=== PATIENT | female | born 1970 | race African-American/Black ===

== ENCOUNTER 2016-07-28 23:28 | Inpatient (IN) ==
[2016-07-29] MEDS ORDERED: niCARdipine 25 MG/10 ML VIAL IV ONE
--- NOTE | 2016-07-29 00:06 | Emergency Department Note ---
Daya Roberson Gwan, am scribing for, and in the presence of, Mckay Watson MD 00:05. Walter Roberson Robert M, MD, personally performed the services described in this documentation, ascribed by Kaitlyn Stapleton in my presence, and it is both accurate and complete . Arrival - Arrival Chief Complaint: Shortness of Breath Stated Complaint: swollen legs and feet chest tight hard to breath ED Nursing Triage Note: C/O SHORT OF BREATH WITH CHEST TIGHTNESS. PT STATES THAT SHE HAS SWELLING TO BILATERAL FEET. Mode of Arrival: Ambulatory Limitations: No Limitations Source: Patient, Old Records Reviewed, RN Notes Reviewed - History of Present Illness HPI Narrative: Patient is a 45 y/o black female who presents to the ED with a c/o SOB, cough, chest pain and bilateral edema to lower extremities with an onset yesterday morning. During exam pt spoke in limited sentences. At time of triage, pt's BP was 243/145. She describes her pain as a tightness and stated that her SOB worsens with exertion and when she lays flat. Patient is followed by physicians at [facility]. She stated that she has been compliant with all prescribed medication but denies any other pain. Pt has PMHx of IDDM and dyslipidemia. Onset (ago): day(s) Consistency: constant Severity: moderate Date of Last Menstrual Period: HYST Allergies/Adverse Reactions: Allergies Allergy/AdvReac Type Severity Reaction Status Date / Time No Known Allergies Allergy Verified 11/19/15 16:02 Home Medications: Home Medications Medication Instructions Recorded Confirmed Type Aspirin [Lo-Dose Aspirin EC] 81 mg PO DAILY 07/29/16 07/29/16 History Furosemide Tab [Lasix Tab] 80 mg PO BID DIURETIC 07/29/16 07/29/16 History Insulin Detemir [Levemir] 20 unit SUBCUT BEDTIME 07/29/16 07/29/16 History Metoprolol Tartrate 50 mg PO BID 07/29/16 07/29/16 History NIFEdipine [Nifedipine ER] 90 mg PO DAILY 07/29/16 07/29/16 History hydrALAZINE TAB [Apresoline Tab] 50 mg PO TID 07/29/16 07/29/16 History Review of System - Review of System 12 point system: reviewed and no additional remarkable complaints except as stated - Review of System Constitutional: Absent: chills, fever Eyes: Absent: discharge, pain Head/Ears/Nose/Throat: Absent: earache Respiratory: Present: as per HPI, cough, other (sob) Cardiovascular: Present: as per HPI, chest pain Gastrointestinal: Absent: abdominal pain, nausea, vomiting, diarrhea Genitourinary female: Absent: dysuria Musculoskeletal: Absent: arm pain, back pain, leg pain, neck pain Skin: Absent: rash, lesions Neurological: Absent: headache, weakness Medical,Surgical,& Family Hx - Medical History Cardio: History of: Hypertension Endocrine: History of: Diabetes Mellitus (IDDM), Dyslipidemia - Family History Family History: Reports;: Family Diabetes, Family Hypertension - Social History Smoking Status: Never smoker Frequency of Alcohol Use: None Type of Drug Use: None Exam Vital Signs: Vital Signs Temperature 97.5 F L 07/28/16 23:40 Pulse Rate 103 H 07/29/16 00:45 Respiratory Rate 18 07/29/16 00:45 Blood Pressure 195/110 07/29/16 00:45 O2 Sat by Pulse Oximetry 95 07/29/16 00:45 - General General appearance: alert, in no apparent distress - Head Head exam: Present: atraumatic, normocephalic - Eye Eye exam: Present: normal appearance, PERRL, EOMI - ENT ENT exam: Present: normal oropharynx, mucous membranes moist, TM's normal bilaterally, normal external ear exam - Neck Neck exam: Present: full ROM, trachea midline. Absent: tenderness - Chest Chest inspection: Present: symmetric chest wall rise. Absent: tenderness - Respiratory Respiratory exam: Present: rhonchi (bilaterally), other (tachypneic) - Cardiovascular Cardiovascular exam: Present: tachycardia - Extremities Exam Extremities exam: Present: other (edema note to bilateral lower extremities) - Neurological Exam Neurological exam: Present: alert, oriented X3, CN II-XII intact. Absent: motor sensory deficit - Psychiatric Psychiatric exam: Present: normal affect, normal mood - Skin Skin exam: Present: warm, dry, intact, normal color Course - Consultations Consultation #1: Dr. Pollack will admit the patient to the hospitalist service. Time: 01:02 Results - Labs CBC & BMP: 07/28/16 00:00 07/28/16 00:00 Lab Results: I have reviewed the patients labs Labs: Lab Results WBC 14.3 T/CUMM (4-12) H 07/28/16 00:00 RBC 3.54 MC/CUMM (3.8-5.5) L 07/28/16 00:00 Hgb 9.8 GM/DL (12.0-16.0) L 07/28/16 00:00 Hct 30.1 VOL% (35.7-47.0) L 07/28/16 00:00 MCV 85.0 FL (87-102) L 07/28/16 00:00 MCH 28 PG (27-34) 07/28/16 00:00 MCHC 32.6 GM/DL (32-36) 07/28/16 00:00 RDW 14.9 % (9.3-17.3) 07/28/16 00:00 Plt Count 393 T/CUMM (130-400) 07/28/16 00:00 MPV 11.5 FL (9.6-12.0) 07/28/16 00:00 Neut % (Auto) 68.9 % (38.7-73.9) 07/28/16 00:00 Lymph % (Auto) 19.3 % (21.3-54.2) L 07/28/16 00:00 Randall % (Auto) 7.9 % (1.7-12.7) 07/28/16 00:00 Eos % (Auto) 2.9 % (0.00-10.9) 07/28/16 00:00 Baso % (Auto) 0.6 % (0.0-0.8) 07/28/16 00:00 Neut # (Auto) 9.9 10*3/uL (1.4-7.4) H 07/28/16 00:00 Lymph # (Auto) 2.8 10*3/uL (1.4-4.0) 07/28/16 00:00 Randall # (Auto) 1.1 10*3/uL (0.11-0.8) H 07/28/16 00:00 Eos # (Auto) 0.4 10*3/uL (0.0-0.87) 07/28/16 00:00 Baso # (Auto) 0.1 10*3/uL (0.0-0.2) 07/28/16 00:00 Immature Gran % 0.4 % 07/28/16 00:00 Nucleated RBC % 0.0 /100WBC 07/28/16 00:00 Immature Gran # 0.05 # 07/28/16 00:00 Nucleated RBCs # 0.00 10*3/uL 07/28/16 00:00 INR 1.0 07/28/16 00:00 PT Patient/Control Mix 10.2 SECS 07/28/16 00:00 Sodium 141 MMOL/L (136-145) 07/28/16 00:00 Potassium 3.2 MMOL/L (3.5-5.1) L 07/28/16 00:00 Chloride 108 MMOL/L (98-107) H 07/28/16 00:00 Carbon Dioxide 22 MMOL/L (21-32) 07/28/16 00:00 Anion Gap 14.2 MMOL/L (5.0-15.0) 07/28/16 00:00 BUN 33 MG/DL (7-18) H 07/28/16 00:00 Creatinine 4.10 MG/DL (0.55-1.02) H 07/28/16 00:00 GFR Calculation 17 ML/MIN 07/28/16 00:00 BUN/Creatinine Ratio 8.00 RATIO (6.00-20.00) 07/28/16 00:00 Glucose 239 MG/DL (74-106) H 07/28/16 00:00 Calculated Osmolality 295.3 MOS/KG (273-304) 07/28/16 00:00 Calcium 8.1 MG/DL (8.5-10.1) L 07/28/16 00:00 Magnesium 2.4 MG/DL (1.8-2.4) 07/28/16 00:00 - Diagnostic Findings Procedure: Chest x-ray: image reviewed by me (Pulmonary edema right basilar atelectasis/pleural effusion) Critical Care Time Critical Care Time: Yes Total Critical Care Time: 37 Disposition Clinical Impression: Hypertensive crisis, Pulmonary edema Case discussed with: patient Disposition: Still a Patient Condition: Stable Time of Disposition: 01:03
[2016-07-29] MEDS: niCARdipine INJ 25 MG in SODIUM CHLORIDE 0.9% 240 ML IV SCH ×3 (00:11→10:55)
[2016-07-29 00:28] LABS: Calcium 8.1 MG/DL (8.5-10.1); Magnesium 2.4 MG/DL (1.8-2.4); Osmolality,Calculated 295.3 MOS/KG (273-304); Potassium 3.2 MMOL/L (3.5-5.1)
[2016-07-29 00:29] LABS: Basophils # 0.1 10*3/uL (0.0-0.2); Basophils % 0.6 % (0.0-0.8); Eosinophils # 0.4 10*3/uL (0.0-0.87); Eosinophils % 2.9 % (0.00-10.9); Hematocrit 30.1 VOL% (35.7-47.0); Hemoglobin 9.8 GM/DL (12.0-16.0); Immature Granulocytes % 0.4 %; Immature Granulocytes Absolute 0.05 #; Lymphocytes # 2.8 10*3/uL (1.4-4.0); Lymphocytes % 19.3 % (21.3-54.2); Mean Corpuscular HGB Conc 32.6 GM/DL (32-36); Mean Corpuscular Hemoglobin 28 PG (27-34); Mean Platelet Volume 11.5 FL (9.6-12.0); Monocytes # 1.1 10*3/uL (0.11-0.8); Monocytes % 7.9 % (1.7-12.7); Neutrophils # 9.9 10*3/uL (1.4-7.4); Neutrophils % 68.9 % (38.7-73.9); Platelet Count 393 T/CUMM (130-400); Red Blood Count 3.54 MC/CUMM (3.8-5.5); Red Cell Distribution Width 14.9 % (9.3-17.3); White Blood Count 14.3 T/CUMM (4-12)
[2016-07-29 00:44] LABS: PT Patient Result 10.2 SECS
[2016-07-29 01:08] LABS: Troponin I Only 0.076 NG/ML (0.00-0.045)
[2016-07-29 01:11] LABS: Apearance,Urine Slightly Hazy (Clear); Bilirubin,Urine Negative (Negative); Blood, Urine Negative (Negative); Glucose,Urine (UA) >=500 mg/dL (Negative); Ketones,Urine Negative (Negative); Mucus,Urine Occasional /LPF (Occasional); Nitrite,Urine Negative (Negative); Protein,Urine >=500 MG/DL; RBC,Urine 9 /HPF (0-4); Squamous Epithelial Cell,Urine Occasional /HPF (0-10); Urine Color Straw (Yellow); Urine Specific Gravity 1.009 (1.001-1.035); Urine Urobilinogen < 2.0 EU/DL (0.2-1.0); WBC,Urine 3 /HPF (0-6)
[2016-07-29] MEDS ORDERED: DEXTROSE 50% 25 GM/50 ML VIAL IV PRN ×2 (02:02)
[2016-07-29] MEDS ORDERED: POTASSIUM CHLORIDE 20 MEQ TABLET PO ONE (02:02)
[2016-07-29] MEDS ORDERED: ACETAMINOPHEN 325 MG TABLET PO PRN (02:02)
[2016-07-29] MEDS ORDERED: MORPHINE 2 MG/1 ML SYRINGE IV PRN (02:02)
[2016-07-29] MEDS ORDERED: GLUCAGON 1 MG VIAL IM PRN ×2 (02:02)
--- NOTE | 2016-07-29 02:36 | Hospitalist History & Physical ---
Assessment and Plan (1) Hypertensive emergency Status: Acute Assessment and plan: Has relative hypertension despite compliance with her many oral medications: Hydralazine, Procardia, Lopressor, Lasix Headache, GEOVANNI, pulmonary edema Admit to ICU on Cardene infusion, titrate oral medications to wean off the Cardene Likely secondary to kidney disease. Unsure why it is exacerbated at this time. I see no signs of scleroderma or TTP. Check thyroid, urine drug screen. Quantify proteinuria. Renal ultrasound done last fall suggest that she may have bilateral renal artery stenosis which may be assessed when she is more stable and at her baseline kidney function. Current Visit: Yes (2) Acute on chronic diastolic (congestive) heart failure Status: Acute Assessment and plan: Echo done last fall with diastolic dysfunction, left atrial enlargement, EF 65% Current exacerbation likely secondary to uncontrolled hypertension, continue home oral Lasix and control hypertension as above Current Visit: Yes (3) Elevated troponin Status: Acute Assessment and plan: Likely secondary to hypertensive emergency, despite CKD has not had a baseline elevated troponin. Trend and monitor on telemetry Current Visit: Yes (4) GEOVANNI (acute kidney injury) Status: Acute Assessment and plan: GEOVANNI worse than baseline CKD. Likely secondary to hypertensive emergency Current Visit: Yes (5) Proteinuria Status: Acute Assessment and plan: Has hypertension and diabetes related kidney disease, may have something else brewing. Quantify proteinuria with urine protein creatinine ratio. Current Visit: Yes (6) Diabetes Status: Acute Assessment and plan: Continue Levemir, serial fingerstick glucose, medium range lispro sliding scale insulin Current Visit: Yes Qualifiers: Diabetes mellitus type: type 2 Diabetes mellitus complication status: with kidney complications Diabetes mellitus complication detail: with chronic kidney disease Diabetes mellitus fci insulin use: with fci use Chronic kidney disease stage: stage 4 (severe) Qualified Code(s): E11.22 - Type 2 diabetes mellitus with diabetic chronic kidney disease; N18.4 - Chronic kidney disease, stage 4 (severe); Z79.4 - shelter (current) use of insulin History of Present Illness Chief complaint: Shortness of breath History of present illness: Ms. Cabrera is a 45 year old female with history of hypertension, diabetes, CKD stage III to IV the presented with a chief complaint of shortness of breath. Onset abrupt. Duration 2 days. Associated with tight central chest pain. Also associated with bilateral lower extremity pitting edema. Associated with cough productive of clear sputum. Dyspnea is exacerbated by lying flat and by exertion. She states that at home her blood pressure typically runs 160s systolic if she takes her medications. She denied missing any medications before the onset of symptoms but she has missed some in the last 12 hours. She had an admission for the same thing last fall and required an ICU stay for antihypertensive management. She sees Dr. Saavedra at [facility] and he is advised her that if they do not find a cause for her kidney disease that they will proceed with a renal biopsy. She denies any history of heart problems. She denies any drug use. I have reviewed the workup performed in the emergency department including lab and imaging data. I discussed her case with emergency department providers. Home Medications Medication Instructions Recorded Confirmed Type Aspirin [Lo-Dose Aspirin EC] 81 mg PO DAILY 07/29/16 07/29/16 History Furosemide Tab [Lasix Tab] 80 mg PO BID DIURETIC 07/29/16 07/29/16 History Insulin Detemir [Levemir] 20 unit SUBCUT BEDTIME 07/29/16 07/29/16 History Metoprolol Tartrate 50 mg PO BID 07/29/16 07/29/16 History NIFEdipine [Nifedipine ER] 90 mg PO DAILY 07/29/16 07/29/16 History hydrALAZINE TAB [Apresoline Tab] 50 mg PO TID 07/29/16 07/29/16 History Allergies Allergy/AdvReac Type Severity Reaction Status Date / Time No Known Allergies Allergy Verified 11/19/15 16:02 Medical,Surgical,& Family Hx - Medical History Cardio: History of: Cardiac Dysrhythmia (Unknown), Hypertension Endocrine: History of: Diabetes Mellitus (IDDM), Dyslipidemia Renal: History of: Renal Problems (Chronic Kidney Disease Stage III) Reproductive: No history of: Complication - Surgical History Cardiac Surgeries: Patient Denies: Cardiac Surgery HEENT Surgeries: Surgical HX of: Eye Surgery (Laser Sx for broken blood vessel 2014) Reproductive Surgeries: Surgical HX of;: Hysterectomy (2004) Patient denies;: Section - Family History Family History: Reports;: Family Diabetes, Family Heart Disease (Grandfather ( Mother's Side) MO/CHF), Family Hypertension - Social History Smoking Status: Never smoker Have you smoked in the last 12 months: No Frequency of Alcohol Use: None Type of Drug Use: None Marital Status: Single Lives With:: Children Functional capacity: independent ambulation Review of systems: - Constitutional Constitutional: Absent: chills, fatigue, fever(s), night sweats, weight loss - EENT Eyes: Absent: blurry vision Ears: Absent: decreased hearing, ear pain Nose, mouth and throat: Absent: nasal congestion, sore throat - Cardiovascular Cardiovascular: Present: Chest pain, dyspnea on exertion, edema, orthopnea - Respiratory Respiratory: Present: Cough, dyspnea absent: Hemoptysis - Gastrointestinal Gastrointestinal: Present: Constipation absent: abdominal pain, diarrhea, dysphagia, hematemesis, hematochezia, melena, nausea, vomiting - Genitourinary Genitourinary: Absent: difficulty urinating, dysuria, hematuria - Musculoskeletal Musculoskeletal: Absent: arthralgias, joint swelling, myalgias - Neurological Neurological: Present: Orthostatic dizziness, headache, blurry vision absent: confusion, focal weakness, numbness, paresthesias, syncope - Psychiatric Psychiatric: Absent: anxiety, depression - Endocrine Endocrine: Absent: cold intolerance, heat intolerance, polydipsia, polyuria - Hematologic/Lymphatic Hematologic/Lymphatic: Absent: easy bleeding, easy bruising, lymphadenopathy Exam - Constitutional General appearance: over weight, other (Middle-aged -[place] female lying on stretcher, pleasant cooperative) Exam: - Eye Eye exam: Present: EOMI. Absent: conjunctival injection, scleral icterus Pupils: Present: SOLIS - ENT ENT exam: Present: normal external ear exam, normal oropharynx - Expanded ENT Exam Mouth exam: Present: moist - Neck Neck exam: Present: normal inspection. Absent: lymphadenopathy, thyromegaly - Respiratory Respiratory exam: Present: Bibasilar wet crackles, otherwise clear to auscultation bilaterally. Absent: accessory muscle use, Wheezes - Cardiovascular Cardiovascular exam: Present: Tachycardia and regular rhythm. Absent: diastolic murmur, systolic murmur - Expanded Cardiovascular Exam Peripheral pulses: 2+: posterior tibialis (L), posterior tibialis (R) - GI/Abdominal GI/Abdominal exam: Present: normal bowel sounds, soft. Absent: distended, hyperactive bowel sounds, hypoactive bowel sounds, organomegaly, tenderness, rebound - Extremities Exam Extremities exam: Present: Bilateral lower extremity pitting edema - Neurological Exam Neurological exam: Present: alert, oriented X3, CN II-XII intact. Absent: motor sensory deficit - Psychiatric Psychiatric exam: Present: normal affect - Skin Skin exam: Present: warm, dry. Absent: diaphoretic, rash Results - Labs CBC & BMP: 07/28/16 00:00 07/28/16 00:00 - Diagnostic Findings Procedure: Chest x-ray: report reviewed by me
[2016-07-29 03:03] LABS: Barbiturates Screen,Urine Negative (Negative); Benzodiazepines Screen,Urine Negative (Negative); Cannabinoid Screen,Urine Negative (Negative); Opiate Screen,Urine Negative (Negative); Phencyclidine Screen,Urine Negative (Negative)
[2016-07-29] MEDS: HEPARIN 5,000 UNIT/1 ML VIAL SUBCUT SCH ×3 (03:28→19:06)
[2016-07-29 05:40] LABS: Basophils # 0.1 10*3/uL (0.0-0.2); Basophils % 0.7 % (0.0-0.8); Eosinophils # 0.4 10*3/uL (0.0-0.87); Eosinophils % 2.4 % (0.00-10.9); Hematocrit 29.3 VOL% (35.7-47.0); Hemoglobin 9.5 GM/DL (12.0-16.0); Immature Granulocytes % 0.5 %; Immature Granulocytes Absolute 0.07 #; Lymphocytes # 2.6 10*3/uL (1.4-4.0); Lymphocytes % 17.1 % (21.3-54.2); Mean Corpuscular HGB Conc 32.4 GM/DL (32-36); Mean Corpuscular Hemoglobin 27 PG (27-34); Mean Platelet Volume 11.4 FL (9.6-12.0); Monocytes # 1.1 10*3/uL (0.11-0.8); Neutrophils # 11.1 10*3/uL (1.4-7.4); Neutrophils % 72.3 % (38.7-73.9); Platelet Count 393 T/CUMM (130-400); Red Blood Count 3.49 MC/CUMM (3.8-5.5); Red Cell Distribution Width 14.9 % (9.3-17.3); White Blood Count 15.4 T/CUMM (4-12)
[2016-07-29 06:14] LABS: % Iron Saturation 14.2 % (18-50); Ferritin 425.4 ng/ml (8-252)
[2016-07-29 06:19] LABS: Albumin 2.5 G/DL (3.4-5.0); Bilirubin,Total 0.9 MG/DL (0.2-1.0); Calcium 8.2 MG/DL (8.5-10.1); Magnesium 2.5 MG/DL (1.8-2.4); Osmolality,Calculated 291.4 MOS/KG (273-304); Potassium 3.4 MMOL/L (3.5-5.1); Thyroid Stimulating Hormone 2.03 uIU/ml (0.358-3.74); Total Protein 6.6 G/DL (6.4-8.3)
--- NOTE | 2016-07-29 07:43 | EKG Report ---
Stationary ECG Study [facility] Test Date: 07/29/2016 7:42:58 AM Pat Name: JUAN HOFF Department: Room: 121 Gender: F Record Searcher: : 1970 Requested by: Nixon Suarez Order Number: [id number] Reading MD: SHELLEY CLAYTON Intervals [place] Rate: 97 P: 999 CT: 0 QRS: 83 QRSD: 109 T: 259 QT: 403 QTc: 457 Interpretive Statements ATRIAL FLUTTER/TACHYCARDIA ST DEVIATION AND MODERATE T-WAVE ABNORMALITY, CONSIDER LATERAL ISCHEMIA ST DEVIATION AND MODERATE T-WAVE ABNORMALITY, CONSIDER INFERIOR ISCHEMIA Electronically Signed On 07-29-16 07:47:46 CDT by SHELLEY CLAYTON [email or web address]
[2016-07-29] MEDS: INSULIN LISPRO 100 UNIT/ML SUBCUT SCH ×4 (07:54→21:24)
--- NOTE | 2016-07-29 08:00 | XRay Report ---
XR chest 1V portable Indication: Chest pain shortness of breath. Comparison: Chest x-ray 11/19/2015. Technique: Portable AP chest was performed. Findings: Heart size is borderline to minimally enlarged. Central vascular prominence and mild cephalization of venous structures is present. Blunting of the costophrenic angles cannot be excluded. Additionally there appears to be beam attenuation from soft tissues of the chest. Impression: 1. Pulmonary venous hypertensive changes are suggested. 2. Lateral mild cardiomegaly. 3. Small bilateral pleural effusions are not excluded. The lower chest is somewhat influenced by beam attenuation from chest wall soft tissues. 07/29/2016 7:56 AM PROCEDURE INTERPRETED AT [facility] DEPARTMENT OF RADIOLOGY Final Report Signed by: Dr. Pablo Watson
--- NOTE | 2016-07-29 08:19 | Hospitalist Progress Note ---
Assessment and Plan - Time spent with patient Time spent with patient: Greater than 30 minutes (1) Hypertensive emergency Status: Acute Assessment and plan: Patient was admitted with hypertensive emergency. She is improved and symptomatically better. Cardene infusion continues but we are attempting to wean with the reinitiation of her oral medications. Hopefully can transfer to telemetry later today or early a.m. Current Visit: Yes (2) Acute on chronic diastolic (congestive) heart failure Status: Acute Assessment and plan: Patient had echocardiogram done last fall her prior notes revealing diastolic dysfunction, ejection fraction 65%. Current mild exacerbation likely secondary to her hypertensive emergency. Will obtain blood pressure control and continue home Lasix. Current Visit: Yes (3) Elevated troponin Status: Acute Assessment and plan: Patient has elevated troponin along with chest tightness which are likely secondary to her hypertensive emergency and underlying chronic kidney disease. We will continue to trend and ask cardiology to further evaluate. Current Visit: Yes (4) GEOVANNI (acute kidney injury) Status: Acute Assessment and plan: Patient has acute on chronic kidney injury. We will continue blood pressure control. Further studies are currently pending. Once stabilized she can follow -up as an outpatient. Current Visit: Yes (5) Proteinuria Status: Acute Assessment and plan: Likely secondary to her underlying hypertension and diabetes. Proteinuria is being quantified. She can follow-up at [facility] after discharge for possible renal biopsy as noted. Current Visit: Yes (6) Diabetes Status: Acute Assessment and plan: We will continue her current medical regimen along with Accu-Cheks and sliding scale. Current Visit: Yes Qualifiers: Diabetes mellitus type: type 2 Diabetes mellitus complication status: with kidney complications Diabetes mellitus complication detail: with chronic kidney disease Diabetes mellitus halfway insulin use: with halfway use Chronic kidney disease stage: stage 4 (severe) Qualified Code(s): E11.22 - Type 2 diabetes mellitus with diabetic chronic kidney disease; N18.4 - Chronic kidney disease, stage 4 (severe); Z79.4 - snf (current) use of insulin (7) Hypokalemia Status: Acute Assessment and plan: Patient has mild hypokalemia. We will continue to supplement. Current Visit: Yes Hospitalist: Subjective Interval history: Patient was admitted last evening with a hypertensive emergency. She states she is no longer having any chest tightness or shortness of breath is improved. She denies any headache or focal motor weakness or paresthesias. She continues to require IV Cardene infusion for blood pressure control. Her routine home medications have been initiated. Exam - Constitutional Vitals: Period Temp Pulse Resp BP Sys/Florez Pulse Ox Last 24 Hr 98.1 F-98.2 F 101-109 20-27 148-189/86-112 92-96 General appearance: no acute distress - Head Head exam: Present: normocephalic, atraumatic - Eye Eye exam: Present: EOMI Pupils: Present: SOLIS - ENT ENT exam: Present: normal exam - Neck Neck exam: Present: normal inspection - Respiratory Respiratory exam: Present: clear to auscultation bilaterally. Absent: rales, rhonchi, wheezes - Cardiovascular Cardiovascular exam: Present: regular rate and rhythm - GI/Abdominal GI/Abdominal exam: Present: normal bowel sounds, soft. Absent: mass, tenderness , rebound - Extremities Exam Extremities exam: Absent: calf tenderness, edema - Back Exam Back exam: Present: normal inspection - Neurological Exam Neurological exam: Present: alert, oriented X3, CN II-XII intact. Absent: motor sensory deficit - Psychiatric Psychiatric exam: Present: normal affect, normal mood. Absent: agitated, anxious - Skin Skin exam: Present: warm, dry. Absent: erythema, rash Results - Labs CBC & BMP: 07/29/16 05:02 07/29/16 05:02 Lab Results: I have reviewed the past 24 hour labs - Impressions EKG reveals tachycardia with inferolateral ST-T wave changes. - Diagnostic Findings Procedure: Chest x-ray: report reviewed by me
[2016-07-29] MEDS: ASPIRIN EC 81 MG TABLET PO SCH (09:22)
[2016-07-29] MEDS: METOPROLOL TARTRATE 50 MG TABLET PO SCH ×2 (09:22→21:22)
[2016-07-29] MEDS: POTASSIUM CHLORIDE 20 MEQ TABLET PO SCH ×2 (09:22→21:22)
[2016-07-29] MEDS: FUROSEMIDE 20 MG TABLET PO SCH ×2 (09:23→16:32)
--- NOTE | 2016-07-29 12:16 | Cardiology Consult Note ---
History of Present Illness - Data of Consult Patient: new to practice - Consult Narrative History of present illness: Cardiology consult 45-year-old woman admitted with hypertensive urgency. Blood pressure was 243/ 145 .she presented with shortness of breath chest tightness and headache.currently on IV Cardene. Telemetry shows sinus rhythm 82 and blood pressure 160/94. O2 sat is 97% on room air. The patient has chronic hypertension. She is followed at the [facility]. Home BP meds include Lopressor 50 mg twice daily, nifedipine 60 mg daily and hydralazine 50 mg 3 times daily and Lasix 20 mg daily. He is also a diabetic and takes Levemir insulin 20 units at bedtime. Blood sugar 213. Hemoglobin A1c level 9.7. Chest x-ray shows cardiomegaly with CHF. BNP level 641. Urine drug screen is negative. EKG shows sinus rhythm with inferolateral T-wave inversions. The patient quit smoking 15 years ago. She does not drink any alcohol. Occasional GE reflux symptoms. Denies melena. Patient is 5 feet 6 inches tall and weighs 214 pounds. She sleeps on 3 or 4 pillows and has nocturia 490. She often sleeps in a recliner chair. She has paroxysmal nocturnal dyspnea. The patient snores loudly. She has daytime sleepiness with morning headaches. She has fallen asleep while watching television and at [employer]. Obstructive sleep apnea suspected. The patient has chronic dyspnea and easy fatigability. The patient has known chronic renal failure and has been seen by boat puller in [place]. Creatinine today is 4.10 BUN 31 potassium 3.4. Her mother is 62 years old and has hypertension and a stroke. Her father had hypertension and diabetes and of a heart attack at age 68. Sister is 25 and in good health. The patient has for 13 years. She has [id number] son and no grandchildren. Lab data White count 15.4 hemoglobin 9.5 hematocrit 29.3 MCV of 84 Sodium 140 potassium 3.4 chloride 107 CO2 23 BUN 31 creatinine 4.10 Glucose 213 magnesium 2.5 Hemoglobin A1c level 9.7 BNP level 641 Trivial troponin 0.076 and 0.071 Negative urine drug screen Chest x-ray shows cardiomegaly CHF Blood pressure currently 160/94 pulse is 82 and regular O2 sat 96% room air bilateral arcus no xanthelasma good oral hygiene no carotid bruit lungs revealed decreased breath sounds with a few crackles in the right base no sacral edema cardiac exam is regular no murmur or gallop abdomen obese soft benign femoral pulses 2+ without bruits of pulses are 2+ no edema Impression Hypertensive urgency blood pressure 243/145 on presentation .currently on Cardene infusion Chronic hypertension with noncompliance medications. They make her feel tired Chronic renal failure creatinine 4.10 BUN 31, estimated GFR 17 mL/min CHF due to hypertensive urgency Poorly controlled diabetic hemoglobin A1c level 9.7 Obesity 5 feet 6 inches tall, 211 pounds Obstructive sleep apnea suspected Remote tobacco abuse Trivial troponin due to CHF and hypertension Plan Echo Doppler Cardene infusion Restart BP meds Increase hydralazine 100 mg 3 times daily I stressed the importance of taking her blood pressure medications daily and not missing doses. She is fully aware the risk for stroke and heart attack and progressive renal failure. Nurse Cassandra present for the entire discussion. CC: Al Delgado - Home Medications and Allergies Home Medications: Home Medications Medication Instructions Recorded Confirmed Type Aspirin [Lo-Dose Aspirin EC] 81 mg PO DAILY 07/29/16 07/29/16 History Furosemide Tab [Lasix Tab] 80 mg PO BID DIURETIC 07/29/16 07/29/16 History Insulin Detemir [Levemir] 20 unit SUBCUT BEDTIME 07/29/16 07/29/16 History Metoprolol Tartrate 50 mg PO BID 07/29/16 07/29/16 History NIFEdipine [Nifedipine ER] 90 mg PO DAILY 07/29/16 07/29/16 History hydrALAZINE TAB [Apresoline Tab] 50 mg PO TID 07/29/16 07/29/16 History Allergies/Adverse Reactions: Allergies Allergy/AdvReac Type Severity Reaction Status Date / Time No Known Allergies Allergy Verified 11/19/15 16:02 Medical,Surgical,& Family Hx - Medical History Cardio: History of: Cardiac Dysrhythmia (Unknown), Hypertension Endocrine: History of: Diabetes Mellitus (IDDM), Dyslipidemia Renal: History of: Renal Problems (Chronic Kidney Disease Stage III) Reproductive: No history of: Complication - Surgical History Cardiac Surgeries: Patient Denies: Cardiac Surgery HEENT Surgeries: Surgical HX of: Eye Surgery (Laser Sx for broken blood vessel 2014) Reproductive Surgeries: Surgical HX of;: Hysterectomy (2004) Patient denies;: Section - Family History Family History: Reports;: Family Diabetes, Family Heart Disease (Grandfather ( Mother's Side) [place]/CHF), Family Hypertension - Social History Smoking Status: Never smoker Frequency of Alcohol Use: None Type of Drug Use: None Physical Examination Vital Signs Temp Pulse Resp BP Pulse Ox 97.5 F L 107 H 24 243/145 98 07/28/16 23:29 07/28/16 23:29 07/28/16 23:29 07/28/16 23:29 07/28/16 23:29 Result/EKG - Labs CBC & BMP: 07/29/16 05:02 07/29/16 05:02 Labs: Laboratory Results - last 24 hr 07/29/16 07/29/16 07/29/16 05:02 05:02 05:02 WBC 15.4 H RBC 3.49 L Hgb 9.5 L Hct 29.3 L MCV 84.0 L MCH 27 MCHC 32.4 RDW 14.9 Plt Count 393 MPV 11.4 Neut % (Auto) 72.3 Lymph % (Auto) 17.1 L Maverick % (Auto) 7.0 Eos % (Auto) 2.4 Baso % (Auto) 0.7 Neut # (Auto) 11.1 H Lymph # (Auto) 2.6 Maverick # (Auto) 1.1 H Eos # (Auto) 0.4 Baso # (Auto) 0.1 Immature Gran % 0.5 Nucleated RBC % 0.0 Immature Gran # 0.07 Nucleated RBCs # 0.00 Sodium 140 Potassium 3.4 L Chloride 107 Carbon Dioxide 23 Anion Gap 13.4 BUN 31 H Creatinine 4.10 H GFR Calculation 17 BUN/Creatinine Ratio 7.00 Glucose 213 H POC Glucose Hemoglobin A1c Calculated Osmolality 291.4 Calcium 8.2 L Magnesium 2.5 H Iron TIBC % Saturation Ferritin Total Bilirubin 0.90 AST 22 ALT 32 Alkaline Phosphatase 72 Troponin I 0.078 H Total Protein 6.6 Albumin 2.5 L Globulin 4.1 H Albumin/Globulin Ratio 0.6 L TSH 3rd Generation 2.030 07/29/16 07/29/16 07/29/16 05:02 05:02 06:41 WBC RBC Hgb Hct MCV MCH MCHC RDW Plt Count MPV Neut % (Auto) Lymph % (Auto) Maverick % (Auto) Eos % (Auto) Baso % (Auto) Neut # (Auto) Lymph # (Auto) Maverick # (Auto) Eos # (Auto) Baso # (Auto) Immature Gran % Nucleated RBC % Immature Gran # Nucleated RBCs # Sodium Potassium Chloride Carbon Dioxide Anion Gap BUN Creatinine GFR Calculation BUN/Creatinine Ratio Glucose POC Glucose Hemoglobin A1c 9.7 H Calculated Osmolality Calcium Magnesium Iron 30 L TIBC 211 L % Saturation 14.2 L Ferritin 425.4 H Total Bilirubin AST ALT Alkaline Phosphatase Troponin I 0.071 H Total Protein Albumin Globulin Albumin/Globulin Ratio TSH 3rd Generation 07/29/16 07/29/16 07:30 11:23 WBC RBC Hgb Hct MCV MCH MCHC RDW Plt Count MPV Neut % (Auto) Lymph % (Auto) Maverick % (Auto) Eos % (Auto) Baso % (Auto) Neut # (Auto) Lymph # (Auto) Maverick # (Auto) Eos # (Auto) Baso # (Auto) Immature Gran % Nucleated RBC % Immature Gran # Nucleated RBCs # Sodium Potassium Chloride Carbon Dioxide Anion Gap BUN Creatinine GFR Calculation BUN/Creatinine Ratio Glucose POC Glucose 230 H 168 H Hemoglobin A1c Calculated Osmolality Calcium Magnesium Iron TIBC % Saturation Ferritin Total Bilirubin AST ALT Alkaline Phosphatase Troponin I Total Protein Albumin Globulin Albumin/Globulin Ratio TSH 3rd Generation
[2016-07-29] MEDS: NITROGLYCERIN 2% OINT 1 INCH/GM PACK TOP SCH ×3 (13:08→23:53)
--- NOTE | 2016-07-29 16:34 | ECHO Report ---
Tanya Cabrera Exam Date: 07/29/2016 11:08 Referring Physician: Technologist: Leda Bailey RDCS Age: 45 Ht (in): 66 Wt (lb): 224 Gender: F Exam Location: [facility] Echo Indications: Chest pain, unspecified, Essential (primary) hypertension, Hypertensive emergency, Acute on chronic diastolic (congestive) heart failure, Chronic kidney disease, stage 3 (moderate), IDDM, Elevated troponin BP: 179 / 106 HR: 90 Rhythm: Sinus Technical Quality: Good IMPRESSIONS EF 55-60 %. Moderate concentric left ventricular hypertrophy. Grade II/IV diastolic dysfunction, moderately elevated filling pressures. The right ventricle is normal in size and function. The right atrium is mildly enlarged. The left atrium is mildly enlarged. Morphologically normal mitral valve. Trace mitral valve regurgitation. Aortic valve sclerosis. No aortic valve regurgitation. [id number] tricuspid valve regurgitation. Pulmonic valve not well visualized. Normal pericardium without effusion. Normal ascending aorta dimension. MEASUREMENTS (Male / Female) Normal Values 2D ECHO LV Diastolic Diameter PLAX 4.2 cm 4.2 - 5.9 / 3.9 - 5.3 cm LV Systolic Diameter PLAX 2.9 cm LV Fractional Shortening PLAX 29.4 % IVS Diastolic Thickness 2.2 cm 0.6 - 1.0 / 0.6 - 0.9 cm LVPW Diastolic Thickness 2.0 cm 0.6 - 1.0 / 0.6 - 0.9 cm RV Internal Dim ED PLAX 2.3 cm Aortic Root Diameter 3.1 cm LA Systolic Diameter LX 4.4 cm 3.0 - 4.0 / 2.7 - 3.8 cm DOPPLER TR Peak Velocity 335.0 cm/s TR Peak Gradient 44.9 mmHg FINDINGS Left Ventricle EF 55-60 %. Moderate concentric left ventricular hypertrophy. Grade II/IV diastolic dysfunction, moderately elevated filling pressures. Right Ventricle The right ventricle is normal in size and function. Right Atrium The right atrium is mildly enlarged. Left Atrium The left atrium is mildly enlarged. Mitral Valve Morphologically normal mitral valve. Trace mitral valve regurgitation. Aortic Valve Aortic valve sclerosis. No aortic valve regurgitation. Tricuspid Valve Morphologically normal tricuspid valve. Yrkxruca-[id number] tricuspid valve regurgitation. [id number]. Pulmonic Valve Pulmonic valve not well visualized. Pericardium Normal pericardium without effusion. Aorta Normal ascending aorta dimension. Kvng Deepika (Electronically Signed) Final Date: 29 Jul 2016 16:34
--- NOTE | 2016-07-29 18:11 | EKG Report ---
Stationary ECG Study [facility] ER Test Date: 07/28/2016 11:43:31 PM Pat Name: JUAN HOFF Department: Room: 121 Gender: F Assistant Professor Of Psychology: DK : 1970 Requested by: Mckay Watson Order Number: [id number] Reading MD: ROXANNE GAMINO Intervals Purdin Rate: 104 P: 999 AR: 0 QRS: 91 QRSD: 112 T: 258 QT: 365 QTc: 425 Interpretive Statements SINUS TACHYCARDIA BORDERLINE RIGHT AXIS DEVIATION MODERATE INTRAVENTRICULAR CONDUCTION DELAY ST DEVIATION AND MODERATE T-WAVE ABNORMALITY Electronically Signed On 07-29-16 19:01:39 CDT by ROXANNE GAMINO [email or web address]
[2016-07-29] MEDS: INSULIN GLARGINE 100 UNIT/ML SUBCUT SCH (21:23)
[2016-07-29] MEDS ORDERED: ONDANSETRON 4 MG/2 ML VIAL IV PRN (22:44)
[2016-07-30] MEDS: NITROGLYCERIN 2% OINT 1 INCH/GM PACK TOP SCH ×2 (01:24→06:37)
[2016-07-30] MEDS: HEPARIN 5,000 UNIT/1 ML VIAL SUBCUT SCH ×3 (02:22→17:46)
[2016-07-30 04:57] LABS: Calcium 8.1 MG/DL (8.5-10.1); Osmolality,Calculated 294.1 MOS/KG (273-304); Potassium 4.1 MMOL/L (3.5-5.1)
[2016-07-30] MEDS: INSULIN LISPRO 100 UNIT/ML SUBCUT SCH ×4 (07:44→21:03)
--- NOTE | 2016-07-30 07:54 | Cardiology Progress Note ---
Cardiology - PN: Subj Interval history: Cardiology note 45-year-old woman admitted with hypertensive urgency blood pressure 243/145 yesterday. Cardene drip has been weaned off. Blood pressure today is 148/94. Telemetry shows sinus rhythm in the mid 80s. O2 sat 95% on 2 L. Regular rhythm no gallop or murmur. Clear lungs. Abdomen benign. No leg edema. Lab data today Sodium 142 potassium 4.1 chloride 110 CO2 22 BUN 38 creatinine up to 4.60. Creatinine yesterday was 4.10. A1c level 9.7 Glucose 153 Echo showed ejection fraction of 55-60% with moderate concentric LVH, grade 2 diastolic dysfunction, mildly dilated left atrium, aortic valve sclerosis, and moderate TR, PA pressure 55mmHg with no effusion. Impression Status post hypertensive urgency blood pressure 243/145 on presentation Chronic hypertension with noncompliance with medication Chronic renal failure creatinine 4.10 BUN 31 on presentation. Creatinine today 4.80 receiving IV Lasix 80 mg twice daily CHF due to hypertensive urgency Poorly controlled diabetes. Hemoglobin A1c level 9.7 Obesity 5 feet 6 inches tall, 211 pounds Remote tobacco abuse Trivial troponin due to CHF and hypertension Obstructive sleep apnea suspected Plan DC IV Lasix. Begin clonidine 0.1 mg twice daily Continue hydralazine 100 mg 3 times daily Continue metoprolol 50 mg twice daily Continue nifedipine 90 mg daily BMP in a.m. Patient will need sleep study evaluation Renal consult Exam (Progress Note) - Constitutional Vitals: Period Temp Pulse Resp BP Sys/Florez Pulse Ox Last 24 Hr 97.6 F-98.4 F 77-107 16-26 106-194/75-125 88-96 Result/EKG - Labs CBC & BMP: 07/29/16 05:02 07/30/16 04:14 Labs: Laboratory Results - last 24 hr 07/29/16 07/29/16 07/29/16 06:41 11:23 16:09 Sodium Potassium Chloride Carbon Dioxide Anion Gap BUN Creatinine GFR Calculation BUN/Creatinine Ratio Glucose POC Glucose 168 H 199 H Calculated Osmolality Calcium Troponin I 0.071 H 07/29/16 07/30/16 07/30/16 19:27 04:14 07:23 Sodium 142 Potassium 4.1 Chloride 110 H Carbon Dioxide 22 Anion Gap 14.1 BUN 38 H Creatinine 4.60 H GFR Calculation 15 BUN/Creatinine Ratio 8.00 Glucose 153 H POC Glucose 184 H 140 H Calculated Osmolality 294.1 Calcium 8.1 L Troponin I
[2016-07-30 08:21] LABS: Protein/Creatinine Ratio,Urine 7.4 RATIO
--- NOTE | 2016-07-30 08:42 | Hospitalist Progress Note ---
Assessment and Plan - Time spent with patient Time spent with patient: Less than 30 minutes (1) Hypertensive emergency Status: Acute Assessment and plan: 07/29/16: Patient was admitted with hypertensive emergency. She is improved and symptomatically better. Cardene infusion continues but we are attempting to wean with the reinitiation of her oral medications. Hopefully can transfer to telemetry later today or early a.m. 07/30/16: Patient is symptomatically improved and is off IV Cardene. Will transfer to the floor and continue to optimize her medical therapy. Current Visit: Yes (2) Acute on chronic diastolic (congestive) heart failure Status: Acute Assessment and plan: 07/29/16: Patient had echocardiogram done last fall her prior notes revealing diastolic dysfunction, ejection fraction 65%. Current mild exacerbation likely secondary to her hypertensive emergency. Will obtain blood pressure control and continue home Lasix. 07/30/16: Appears to be well compensated at this time. Her creatinine did increase in her Lasix has been placed on hold. Current Visit: Yes (3) Elevated troponin Status: Acute Assessment and plan: Patient has elevated troponin along with chest tightness which are likely secondary to her hypertensive emergency and underlying chronic kidney disease. We will continue to trend and ask cardiology to further evaluate. Current Visit: Yes (4) GEOVANNI (acute kidney injury) Status: Acute Assessment and plan: 07/29/16: Patient has acute on chronic kidney injury. We will continue blood pressure control. Further studies are currently pending. Once stabilized she can follow-up as an outpatient. 07/30/16: Creatinine has increased while here. This is likely secondary to diuresis and hypertension. Nephrology has been consulted. Lasix has been placed on hold. We will continue with moderate blood pressure control. Current Visit: Yes (5) Proteinuria Status: Acute Assessment and plan: 07/29/16: Likely secondary to her underlying hypertension and diabetes. Proteinuria is being quantified. She can follow-up at [facility] after discharge for possible renal biopsy as noted. 07/30/16: 24 urine is currently pending. Nephrology has been consulted. Current Visit: Yes (6) Diabetes Status: Acute Assessment and plan: We will continue her current medical regimen along with Accu-Cheks and sliding scale. Current Visit: Yes Qualifiers: Diabetes mellitus type: type 2 Diabetes mellitus complication status: with kidney complications Diabetes mellitus complication detail: with chronic kidney disease Diabetes mellitus half-way insulin use: with half-way use Chronic kidney disease stage: stage 4 (severe) Qualified Code(s): E11.22 - Type 2 diabetes mellitus with diabetic chronic kidney disease; N18.4 - Chronic kidney disease, stage 4 (severe); Z79.4 - intermission coordinator (current) use of insulin (7) Hypokalemia Status: Acute Assessment and plan: 07/29/16: Patient has mild hypokalemia. We will continue to supplement. 07/30/16: Potassium is been corrected. Continue to follow. Current Visit: Yes Hospitalist: Subjective Interval history: Tanya is doing well today without complaints of chest pain or shortness of breath. She has been weaned off her Cardene and is on oral medications only. Exam - Constitutional Vitals: Period Temp Pulse Resp BP Sys/Florez Pulse Ox Last 24 Hr 97.6 F-98.4 F 77-107 16-26 106-194/75-125 88-96 General appearance: no acute distress - Head Head exam: Present: normocephalic, atraumatic - Eye Eye exam: Present: EOMI Pupils: Present: SOLIS - ENT ENT exam: Present: normal exam - Neck Neck exam: Present: normal inspection - Cardiovascular Cardiovascular exam: Present: regular rate and rhythm. Absent: gallop, systolic murmur - GI/Abdominal GI/Abdominal exam: Present: normal bowel sounds, soft. Absent: mass, tenderness , rebound - Extremities Exam Extremities exam: Absent: calf tenderness, edema - Neurological Exam Neurological exam: Present: alert, oriented X3, CN II-XII intact. Absent: motor sensory deficit - Psychiatric Psychiatric exam: Present: normal affect, normal mood. Absent: agitated - Skin Skin exam: Present: warm, dry. Absent: rash Results - Labs CBC & BMP: 07/29/16 05:02 07/30/16 04:14 Lab Results: I have reviewed the past 24 hour labs
[2016-07-30] MEDS: ASPIRIN EC 81 MG TABLET PO SCH (09:22)
[2016-07-30] MEDS: cloNIDine 0.1 MG TABLET PO SCH ×2 (09:22→21:03)
[2016-07-30] MEDS: METOPROLOL TARTRATE 50 MG TABLET PO SCH ×2 (09:22→21:03)
[2016-07-30] MEDS ORDERED: POLYETHYLENE GLYCOL POWDER 17 GM PACK PO PRN (10:08)
--- NOTE | 2016-07-30 16:05 | Nephrology Consult Note ---
History of Present Illness Chief complaint: CRF History of present illness: Ms. Cabrera is a 45 year old female with diabetes hypertension and chronic renal failure who is admitted with hypertensive urgency. Blood pressure was markedly elevated on admission. Chief complaint was shortness of breath. Blood pressure medications have been adjusted and her pressure is now well controlled. Shortness of breath is much better. Her chronic renal insufficiency has worsened slightly since admission. Diuretic dose has been decreased Home Medications Medication Instructions Recorded Confirmed Type Aspirin [Lo-Dose Aspirin EC] 81 mg PO DAILY 07/29/16 07/29/16 History Furosemide Tab [Lasix Tab] 80 mg PO BID DIURETIC 07/29/16 07/29/16 History Insulin Detemir [Levemir] 20 unit SUBCUT BEDTIME 07/29/16 07/29/16 History Metoprolol Tartrate 50 mg PO BID 07/29/16 07/29/16 History NIFEdipine [Nifedipine ER] 90 mg PO DAILY 07/29/16 07/29/16 History hydrALAZINE TAB [Apresoline Tab] 50 mg PO TID 07/29/16 07/29/16 History Allergies Allergy/AdvReac Type Severity Reaction Status Date / Time No Known Allergies Allergy Verified 11/19/15 16:02 Medical,Surgical,& Family Hx - Medical History Cardio: History of: Cardiac Dysrhythmia (Unknown), Hypertension Endocrine: History of: Diabetes Mellitus (IDDM), Dyslipidemia Renal: History of: Renal Problems (Chronic Kidney Disease Stage III) Reproductive: No history of: Complication - Surgical History Cardiac Surgeries: Patient Denies: Cardiac Surgery HEENT Surgeries: Surgical HX of: Eye Surgery (Laser Sx for broken blood vessel 2014) Reproductive Surgeries: Surgical HX of;: Hysterectomy (2004) Patient denies;: Section - Family History Family History: Reports;: Family Diabetes, Family Heart Disease (Grandfather ( Mother's Side) [place]/CHF), Family Hypertension - Social History Smoking Status: Never smoker Frequency of Alcohol Use: None Type of Drug Use: None Review of Systems 12 point system: reviewed and no additional remarkable complaints except as stated Exam - Vital Signs Vital signs: Period Temp Pulse Resp BP Sys/Florez Pulse Ox Last 24 Hr 97.4 F-98.4 F 77-92 16-24 106-168/80-105 88-96 Exam: Gen.: Alert and oriented x3. ENT: Pupils equal round reactive to light. EOMs intact. Mucous membranes moist. Neck: Supple. No JVD or bruit. Cardiovascular: Regular rate and rhythm. No murmur rub or gallop Lungs: Clear Abdomen: Soft. Nontender. Positive bowel sounds. No organomegaly Extremities: 1+ edema Results - Labs CBC & BMP: 07/29/16 05:02 07/30/16 04:14 Assessment and Plan (1) Chronic kidney disease, stage III (moderate) Status: Acute Assessment and plan: 45-year-old woman admitted with: * Hypertensive urgency. Blood pressure is now controlled * CRF stage III. She is followed by a theology professor in [place]. She does not know her baseline creatinine. Renal function worsened due to severe hypertension and diuresis. Agree with holding diuretic at present. She has significant proteinuria. This is likely due to diabetic nephropathy * Diabetes mellitus * CHF, diastolic. Improved Current Visit: Yes (2) Acute on chronic diastolic (congestive) heart failure Status: Acute Current Visit: Yes (3) Diabetes Status: Acute Current Visit: Yes Qualifiers: Diabetes mellitus type: type 2 Diabetes mellitus complication status: with kidney complications Diabetes mellitus complication detail: with chronic kidney disease Diabetes mellitus termite renewal inspector insulin use: with termite renewal inspector use Chronic kidney disease stage: stage 4 (severe) Qualified Code(s): E11.22 - Type 2 diabetes mellitus with diabetic chronic kidney disease; N18.4 - Chronic kidney disease, stage 4 (severe); Z79.4 - snf (current) use of insulin (4) Elevated troponin Status: Acute Current Visit: Yes (5) Hypertensive crisis Status: Acute Current Visit: Yes (6) Proteinuria Status: Acute Current Visit: Yes
[2016-07-30] MEDS: INSULIN GLARGINE 100 UNIT/ML SUBCUT SCH (21:02)
[2016-07-31] MEDS: HEPARIN 5,000 UNIT/1 ML VIAL SUBCUT SCH ×3 (01:38→18:39)
[2016-07-31 06:12] LABS: Calcium 8.2 MG/DL (8.5-10.1); Osmolality,Calculated 293.3 MOS/KG (273-304); Potassium 4.2 MMOL/L (3.5-5.1)
[2016-07-31] MEDS: niCARdipine INJ 25 MG in SODIUM CHLORIDE 0.9% 240 ML IV SCH (07:20)
[2016-07-31] MEDS: METOPROLOL TARTRATE 50 MG TABLET PO SCH ×2 (08:39→21:03)
[2016-07-31] MEDS: cloNIDine 0.1 MG TABLET PO SCH (08:39)
[2016-07-31] MEDS: ASPIRIN EC 81 MG TABLET PO SCH (08:39)
[2016-07-31] MEDS: INSULIN LISPRO 100 UNIT/ML SUBCUT SCH ×4 (09:15→21:04)
--- NOTE | 2016-07-31 11:30 | Nephrology Progress Note ---
Nephrology - PN: Subj Interval history: She denies shortness of breath or chest pain. Exam (PN)-Nephrology - Vital Signs Vital signs: Period Temp Pulse Resp BP Sys/Florez Pulse Ox Last 24 Hr 97.2 F-98.0 F 75-90 16-24 129-176/82-102 90-95 Exam: ENT: Normal Cardiovascular: Regular rate and rhythm. No murmur rub or gallop Lungs: Clear Extremities: 1+ edema - Lab 07/29/16 05:02 07/31/16 04:44 Most recent lab results Calcium 8.2 MG/DL (8.5-10.1) L 07/31/16 04:44 Magnesium 2.5 MG/DL (1.8-2.4) H 07/29/16 05:02 Assessment and Plan (1) Chronic kidney disease, stage III (moderate) Status: Acute Assessment and plan: 45-year-old woman admitted with: * Hypertensive urgency. Blood pressure is now controlled * CRF stage III. She is followed by a loss prevention lead in [place]. She does not know her baseline creatinine. Renal function worsened due to severe hypertension and diuresis. Agree with holding diuretic at present. Creatinine slightly higher today than yesterday * CHF, diastolic. Improved Current Visit: Yes (2) Acute on chronic diastolic (congestive) heart failure Status: Acute Current Visit: Yes (3) Diabetes Status: Acute Current Visit: Yes Qualifiers: Diabetes mellitus type: type 2 Diabetes mellitus complication status: with kidney complications Diabetes mellitus complication detail: with chronic kidney disease Diabetes mellitus retirement insulin use: with petroleum terminal plant operator use Chronic kidney disease stage: stage 4 (severe) Qualified Code(s): E11.22 - Type 2 diabetes mellitus with diabetic chronic kidney disease; N18.4 - Chronic kidney disease, stage 4 (severe); Z79.4 - predatory animal exterminator (current) use of insulin (4) Elevated troponin Status: Acute Current Visit: Yes (5) Hypertensive crisis Status: Acute Current Visit: Yes (6) Proteinuria Status: Acute Current Visit: Yes
--- NOTE | 2016-07-31 12:36 | Cardiology Progress Note ---
Assessment and Plan - Time spent with patient Time spent with patient: Less than 30 minutes (1) Hypertensive crisis Status: Acute Assessment and plan: SEE PLAN OF CARE LISTED BELOW. Current Visit: Yes (2) Hypertension Status: Chronic Assessment and plan: SEE PLAN OF CARE LISTED BELOW. Current Visit: Yes (3) Noncompliance Status: Chronic Assessment and plan: SEE PLAN OF CARE LISTED BELOW. Current Visit: Yes (4) Uncontrolled diabetes mellitus Status: Chronic Assessment and plan: SEE PLAN OF CARE LISTED BELOW. Current Visit: Yes (5) Acute on chronic diastolic (congestive) heart failure Status: Acute Assessment and plan: SEE PLAN OF CARE LISTED BELOW. Current Visit: Yes (6) Sleep disorder, unspecified Status: Chronic Assessment and plan: SEE PLAN OF CARE LISTED BELOW. Current Visit: Yes (7) Elevated troponin Status: Acute Assessment and plan: SEE PLAN OF CARE LISTED BELOW. Current Visit: Yes (8) Chronic kidney disease, stage III (moderate) Status: Chronic Assessment and plan: SEE PLAN OF CARE LISTED BELOW. Current Visit: Yes Cardiology - PN: Subj Interval history: OCCUPATIONAL HYGIENIST: NEW TO DR. GAMINO PCP: [facility] Ms. Cabrera is a 45 y/o BF who presented on 07/28/16 with hypertensive urgency, shortness of breath, and headache. Her blood pressure was 243/145 on admission. She has a history of hypertension, diabetes, chronic renal failure (followed by nephrology in [place]), noncompliance, tobacco use, and suspected sleep apnea. She was placed on a Cardene infusion in an attempt to better control her blood pressure. She is now off of this and we have been adjusting her medications. Echocardiogram was obtained and revealed an EF of 55-60%, moderate LVH, grade II /IV diastolic dysfunction, moderate to severe tricuspid regurgitation. Initial chest x-ray revealed cardiomegaly with CHF. Her shortness of breath is improving. She has been up and around in her room. She remains on O2 via NBP. Blood pressure remains mildly elevated despite multiple medication changes. She is now on Hydralazine 100mg PO TID, Metoprolol 50mg PO BID, Nifedipine 90mg PO daily, and Clonidine 0.1mg PO BID. I've increased her Clonidine to TID to hopefully give her some better coverage. Her creatinine is up to 4.9 today. Her diuretic is being held for now. Dr. Epps to follow with further plan and addendum. ASSESSMENT/PLAN. 1. HYPERTENSIVE URGENCY - This is improving. We are continuing to adjust her medications for optimal blood pressure control. 2. CHRONIC HYPERTENSION - Will continue to monitor and adjust medications as needed. 3. NONCOMPLIANCE - Stressed the importance of compliance with medications. 4. UNCONTROLLED DIABETES - She is on sliding scale. Hemoglobin A1C was 9.7. 5. DIASTOLIC CHF - This seems to be improving. Lungs are fairly clear. Has mild BLE edema. 6. SUSPECTED MITALI - She will need sleep study evaluation outpatient. 7. ELEVATED TROPONIN - Trivial elevation, suspect this is due to CHF and hypertension. 8. CHRONIC RENAL FAILURE - Nephrology is following. Her creatinine is up to 4.9. Her diuretic is currently being held. Exam (Progress Note) - Constitutional Vitals: Period Temp Pulse Resp BP Sys/Florez Pulse Ox Last 24 Hr 97.2 F-98.0 F 75-90 16-24 131-176/83-102 90-95 Exam: General: Present: Appears Well, No Apparent Distress. Pleasant and cooperative. Flat affect. Appears comfortable. HEENT: Present: PERRL, Normocephaly, atraumatic. Mucus Membranes Moist. No jaundice noted. Conjunctiva moist and clear, sclerae anicteric Neck: Present: Supple Neck, Midline Trachea, No Masses, No Bruit, No tenderness Cardiac: Present: Regular Rate and Rhythm, No Murmur Lungs: Present: Clear to auscultation bilaterally, no wheeze, rhonchi, rales. Neuro: Present: Awake, alert, and oriented x3. Moves all extremities well without hemiparesis or paralysis. Grossly Intact. Absent: Resting Tremor, Essential Tremor Abdomen: Present: Soft, Active Bowel Sounds, No Masses, Non-Tender, nondistended. No abdominal bruit or thrill noted. Skin: Present: Clear. Absent: Rash, No skin breakdown. Back: Normal inspection, no vertebral tenderness. Musculoskeletal: Present: No Fluid Collection, No Pain, Normal Range of Motion Extremities: Present: Normal Gait, No Clubbing, No Cyanosis, Upper Extr. Pulses 2+, Lower Extr. Pulses 2+, 1+ BLE pitting edema. Capillary refill less than 3 seconds. Result/EKG - Labs CBC & BMP: 07/29/16 05:02 07/31/16 04:44 Lab Results: I have reviewed the past 24 hour labs Labs: Laboratory Results - last 24 hr 07/30/16 07/30/16 07/30/16 12:04 16:29 20:58 Sodium Potassium Chloride Carbon Dioxide Anion Gap BUN Creatinine GFR Calculation BUN/Creatinine Ratio Glucose POC Glucose 160 H 167 H 139 H Calculated Osmolality Calcium 07/31/16 07/31/16 07/31/16 04:44 07:24 12:04 Sodium 141 Potassium 4.2 Chloride 110 H Carbon Dioxide 21 Anion Gap 14.2 BUN 43 H Creatinine 4.90 H GFR Calculation 14 BUN/Creatinine Ratio 8.00 Glucose 127 H POC Glucose 111 H 158 H Calculated Osmolality 293.3 Calcium 8.2 L - EKG EKG results: interpreted by me, sinus rhythm
--- NOTE | 2016-07-31 14:39 | Hospitalist Progress Note ---
Assessment and Plan (1) Hypertensive emergency Status: Acute Assessment and plan: Cardiology assisting Better controlled Current Visit: Yes (2) Acute on chronic diastolic (congestive) heart failure Status: Acute Assessment and plan: Cardiology assisting Lasix currently being held given worsening renal function Current Visit: Yes (3) Elevated troponin Status: Acute Current Visit: Yes (4) GEOVANNI (acute kidney injury) Status: Acute Assessment and plan: Patient has GEOVANNI on CKD Nephrology assisting Current Visit: Yes (5) Proteinuria Status: Acute Current Visit: Yes (6) Noncompliance Status: Chronic Current Visit: Yes Hospitalist: Subjective Interval history: Overnight patient reports being unable to sleep due to sob. This morning she reports that this is better. Lasix currently being held due to worsening renal function. Cardiology and nephrology assisting. Will monitor closely. Exam - Constitutional Vitals: Period Temp Pulse Resp BP Sys/Florez Pulse Ox Last 24 Hr 97.2 F-98.6 F 75-90 16-24 131-176/78-102 90-95 General appearance: over weight - Head Head exam: Present: normocephalic, atraumatic - Eye Eye exam: Present: EOMI Pupils: Present: SOLIS - ENT ENT exam: Present: normal exam - Neck Neck exam: Present: normal inspection - Respiratory Respiratory exam: Present: clear to auscultation bilaterally. Absent: wheezes - Cardiovascular Cardiovascular exam: Present: regular rate and rhythm - GI/Abdominal GI/Abdominal exam: Present: normal bowel sounds, soft. Absent: tenderness - Extremities Exam Extremities exam: Present: normal inspection - Back Exam Back exam: Present: normal inspection - Neurological Exam Neurological exam: Present: alert, oriented X3 - Psychiatric Psychiatric exam: Present: normal affect, normal mood - Skin Skin exam: Present: warm, intact Results - Labs CBC & BMP: 07/29/16 05:02 07/31/16 04:44
[2016-07-31] MEDS ORDERED: cloNIDine 0.1 MG TABLET PO SCH ×2 (15:00→21:00)
--- NOTE | 2016-07-31 19:39 | Event Note ---
RoomActually did not allow me to edit the PAINT PREPPEREllis bejaranoes note. Interviewed and examined the patient personally. Discussed findings with the nurse practitioner. I agree with the assessment and plan, with additions as below. 45-year-old female, with end-stage renal disease, off unknown etiology, presented with hypertensive emergency, pulmonary edema. Diuresis worsened renal function. Blood pressure is now better controlled, but she still in pulmonary edema and significantly short of breath. Add Imdur 30 mg daily. Continue hydralazine, calcium channel jade. Continue metoprolol, if needed, we may switch this to labetalol. Bp better controlled but she is still in pulmonary edema. if this is not resolving, we may need to resume diuresis, despite severe renal dysfunction.
[2016-07-31] MEDS ORDERED: ISOSORBIDE MONONITRATE 30 MG TABLET PO ONE (21:00)
[2016-07-31] MEDS: INSULIN GLARGINE 100 UNIT/ML SUBCUT SCH (21:03)
[2016-08-01] MEDS: HEPARIN 5,000 UNIT/1 ML VIAL SUBCUT SCH ×3 (01:37→17:15)
[2016-08-01 05:11] LABS: Basophils # 0.1 10*3/uL (0.0-0.2); Basophils % 0.6 % (0.0-0.8); Eosinophils # 0.3 10*3/uL (0.0-0.87); Hematocrit 26.5 VOL% (35.7-47.0); Hemoglobin 8.5 GM/DL (12.0-16.0); Immature Granulocytes % 0.3 %; Immature Granulocytes Absolute 0.04 #; Lymphocytes # 2.1 10*3/uL (1.4-4.0); Lymphocytes % 16.4 % (21.3-54.2); Mean Corpuscular HGB Conc 32.1 GM/DL (32-36); Mean Corpuscular Hemoglobin 27 PG (27-34); Mean Corpuscular Volume 84.4 FL (87-102); Mean Platelet Volume 11.8 FL (9.6-12.0); Monocytes # 0.8 10*3/uL (0.11-0.8); Monocytes % 6.4 % (1.7-12.7); Neutrophils # 9.4 10*3/uL (1.4-7.4); Neutrophils % 74.3 % (38.7-73.9); Platelet Count 375 T/CUMM (130-400); Red Blood Count 3.14 MC/CUMM (3.8-5.5); Red Cell Distribution Width 15.5 % (9.3-17.3); White Blood Count 12.7 T/CUMM (4-12)
[2016-08-01 05:46] LABS: Calcium 8.3 MG/DL (8.5-10.1); Magnesium 2.5 MG/DL (1.8-2.4); Osmolality,Calculated 293.4 MOS/KG (273-304); Potassium 4.5 MMOL/L (3.5-5.1)
[2016-08-01 06:09] LABS: Risk Ratio 4.7; VLDL CHOLESTEROL 54.6 MG/DL
[2016-08-01] MEDS: INSULIN LISPRO 100 UNIT/ML SUBCUT SCH ×4 (07:55→22:50)
[2016-08-01] MEDS ORDERED: ISOSORBIDE MONONITRATE 30 MG TABLET PO SCH (09:00)
[2016-08-01] MEDS: METOPROLOL TARTRATE 50 MG TABLET PO SCH (09:03)
[2016-08-01] MEDS: ASPIRIN EC 81 MG TABLET PO SCH (09:03)
--- NOTE | 2016-08-01 09:52 | XRay Report ---
XR chest 2V Indication: SOB, wheezing Comparison: Chest x-ray dated July 29, 2016 Technique: Frontal and lateral views of the chest Findings: Continued cardiomegaly. Mild increase in small bilateral pleural effusions. Osseous and surrounding soft tissue structures appear unchanged. IMPRESSION: As above. PROCEDURE INTERPRETED AT [facility] DEPARTMENT OF RADIOLOGY Final Report Signed by: Dr Bob Rendon
[2016-08-01 10:40] LABS: Hematocrit 28.3 VOL% (35.7-47.0); Hemoglobin 9.3 GM/DL (12.0-16.0)
[2016-08-01] MEDS ORDERED: METOPROLOL TARTRATE 50 MG TABLET PO SCH (12:45)
--- NOTE | 2016-08-01 12:51 | Cardiology Progress Note ---
Assessment and Plan - Time spent with patient Time spent with patient: Less than 30 minutes (1) Hypertensive crisis Status: Acute Assessment and plan: SEE PLAN OF CARE LISTED BELOW. Current Visit: Yes (2) Hypertension Status: Chronic Assessment and plan: SEE PLAN OF CARE LISTED BELOW. Current Visit: Yes (3) Noncompliance Status: Chronic Assessment and plan: SEE PLAN OF CARE LISTED BELOW. Current Visit: Yes (4) Uncontrolled diabetes mellitus Status: Chronic Assessment and plan: SEE PLAN OF CARE LISTED BELOW. Current Visit: Yes (5) Acute on chronic diastolic (congestive) heart failure Status: Acute Assessment and plan: SEE PLAN OF CARE LISTED BELOW. Current Visit: Yes (6) Sleep disorder, unspecified Status: Chronic Assessment and plan: SEE PLAN OF CARE LISTED BELOW. Current Visit: Yes (7) Elevated troponin Status: Acute Assessment and plan: SEE PLAN OF CARE LISTED BELOW. Current Visit: Yes (8) Chronic kidney disease, stage III (moderate) Status: Chronic Assessment and plan: SEE PLAN OF CARE LISTED BELOW. Current Visit: Yes Cardiology - PN: Subj Interval history: PNEUMATIC RIVETER: NEW TO DR. GAMINO PCP: [facility] Ms. Cabrera is a 45 y/o BF who presented on 07/28/16 with hypertensive urgency, shortness of breath, and headache. Her blood pressure was 243/145 on admission. She has a history of hypertension, diabetes, chronic renal failure (followed by nephrology in [place]), noncompliance, tobacco use, and suspected sleep apnea. She was placed on a Cardene infusion in an attempt to better control her blood pressure. She is now off of this and we have been adjusting her medications. Echocardiogram was obtained and revealed an EF of 55-60%, moderate LVH, grade II /IV diastolic dysfunction, moderate to severe tricuspid regurgitation. Initial chest x-ray revealed cardiomegaly with CHF. She has been up and around in her room. She remains on O2 via NBP but states today she does not feel any better. She still in pulmonary edema and significantly short of breath. Blood pressure remains mildly elevated despite multiple medication changes. She is now on Hydralazine 100mg PO TID, Metoprolol 75mg PO BID, Nifedipine 90mg PO daily, and Imdur 30mg PO Daily. We discontinued her clonidine after she informed us she had been trialed on this medication before and it made her extremely lethargic and drowsy. Her creatinine is up to 4.9 today. Her diuretic is being held for now. We repeated her chest x-ray today and she does have a mild increase in her bilateral pleural effusions. Dr. Epps to follow with further plan and addendum. ASSESSMENT/PLAN. 1. HYPERTENSIVE URGENCY - This is improving. We are continuing to adjust her medications for optimal blood pressure control. Will increase her Lopressor to 100mg po BID. We may switch this to labetalol. 2. CHRONIC HYPERTENSION - Will continue to monitor and adjust medications as needed. 3. NONCOMPLIANCE - Stressed the importance of compliance with medications. 4. UNCONTROLLED DIABETES - She is on sliding scale. Hemoglobin A1C was 9.7. 5. DIASTOLIC CHF - She continues to have pulmonary edema, mildly increased according to her chest x-ray today. Also has mild BLE edema. 6. SUSPECTED MITALI - She will need sleep study evaluation outpatient. 7. ELEVATED TROPONIN - Trivial elevation, suspect this is due to CHF and hypertension. 8. CHRONIC RENAL FAILURE - Nephrology is following. Her creatinine is up to 4.9. Her diuretic is currently being held. We may need to resume diuresis despite severe renal dysfunction. Will further discuss with Dr. Epps. We may need to give her a dose of Lasix today. Exam (Progress Note) - Constitutional Vitals: Period Temp Pulse Resp BP Sys/Florez Pulse Ox Last 24 Hr 97.1 F-98.8 F 73-88 20-22 126-171/65-109 90-98 Exam: General: Present: Appears Well, No Apparent Distress. Pleasant and cooperative. Flat affect. Appears comfortable. HEENT: Present: PERRL, Normocephaly, atraumatic. Mucus Membranes Moist. No jaundice noted. Conjunctiva moist and clear, sclerae anicteric Neck: Present: Supple Neck, Midline Trachea, No Masses, No Bruit, No tenderness Cardiac: Present: Regular Rate and Rhythm, No Murmur Lungs: Present: Mild posterior crackles, otherwise clear to auscultation bilaterally, no wheeze, rhonchi, rales. Neuro: Present: Awake, alert, and oriented x3. Moves all extremities well without hemiparesis or paralysis. Grossly Intact. Absent: Resting Tremor, Essential Tremor Abdomen: Present: Soft, Active Bowel Sounds, No Masses, Non-Tender, nondistended. No abdominal bruit or thrill noted. Skin: Present: Clear. Absent: Rash, No skin breakdown. Back: Normal inspection, no vertebral tenderness. Musculoskeletal: Present: No Fluid Collection, No Pain, Normal Range of Motion Extremities: Present: Normal Gait, No Clubbing, No Cyanosis, Upper Extr. Pulses 2+, Lower Extr. Pulses 2+, 1+ BLE pitting edema. Capillary refill less than 3 seconds. Result/EKG - Labs CBC & BMP: 08/01/16 09:56 08/01/16 04:29 Lab Results: I have reviewed the past 24 hour labs Labs: Laboratory Results - last 24 hr 07/31/16 07/31/16 08/01/16 16:05 20:01 00:52 WBC RBC Hgb Hct MCV MCH MCHC RDW Plt Count MPV Neut % (Auto) Lymph % (Auto) [place] % (Auto) Eos % (Auto) Baso % (Auto) Neut # (Auto) Lymph # (Auto) [place] # (Auto) Eos # (Auto) Baso # (Auto) Immature Gran % Nucleated RBC % Immature Gran # Nucleated RBCs # Sodium Potassium Chloride Carbon Dioxide Anion Gap BUN Creatinine GFR Calculation BUN/Creatinine Ratio Glucose POC Glucose 168 H 251 H 82 Calculated Osmolality Calcium Magnesium Triglycerides Cholesterol LDL Cholesterol VLDL Cholesterol HDL Cholesterol Heart Disease Risk Ratio 08/01/16 08/01/16 08/01/16 04:29 04:29 04:29 WBC 12.7 H RBC 3.14 L Hgb 8.5 L Hct 26.5 L MCV 84.4 L MCH 27 MCHC 32.1 RDW 15.5 Plt Count 375 MPV 11.8 Neut % (Auto) 74.3 H Lymph % (Auto) 16.4 L [place] % (Auto) 6.4 Eos % (Auto) 2.0 Baso % (Auto) 0.6 Neut # (Auto) 9.4 H Lymph # (Auto) 2.1 [place] # (Auto) 0.8 Eos # (Auto) 0.3 Baso # (Auto) 0.1 Immature Gran % 0.3 Nucleated RBC % 0.0 Immature Gran # 0.04 Nucleated RBCs # 0.00 Sodium 140 Potassium 4.5 Chloride 109 H Carbon Dioxide 21 Anion Gap 14.5 BUN 47 H Creatinine 4.90 H GFR Calculation 14 BUN/Creatinine Ratio 9.00 Glucose 161 H POC Glucose Calculated Osmolality 293.4 Calcium 8.3 L Magnesium 2.5 H Triglycerides 273 H Cholesterol 263 H LDL Cholesterol 162.0 VLDL Cholesterol 54.6 HDL Cholesterol 56 Heart Disease Risk Ratio 4.70 08/01/16 08/01/16 08/01/16 07:18 09:56 11:32 WBC RBC Hgb 9.3 L Hct 28.3 L MCV MCH MCHC RDW Plt Count MPV Neut % (Auto) Lymph % (Auto) [place] % (Auto) Eos % (Auto) Baso % (Auto) Neut # (Auto) Lymph # (Auto) [place] # (Auto) Eos # (Auto) Baso # (Auto) Immature Gran % Nucleated RBC % Immature Gran # Nucleated RBCs # Sodium Potassium Chloride Carbon Dioxide Anion Gap BUN Creatinine GFR Calculation BUN/Creatinine Ratio Glucose POC Glucose 145 H 174 H Calculated Osmolality Calcium Magnesium Triglycerides Cholesterol LDL Cholesterol VLDL Cholesterol HDL Cholesterol Heart Disease Risk Ratio - EKG EKG results: interpreted by me, sinus rhythm
--- NOTE | 2016-08-01 15:27 | Hospitalist Progress Note ---
Hospitalist: Subjective Interval history: Pt reports no change in her SOB. No cough. No chest pain but she does report feeling lightheaded when she gets up. No nausea or vomiting. Decreased oral intake. No BM in 3 days. Usually takes MOM at home for constipation. Exam - Constitutional Vitals: Period Temp Pulse Resp BP Sys/Florez Pulse Ox Last 24 Hr 97.1 F-98.8 F 73-88 20-22 126-171/65-109 90-98 Exam: A and O x 3, sitting in a chair with legs down RRR no M CTAB nonlabored Soft, NT, ND, +BS Warm no c/c +2-+3 pitting BLE edema Results - Labs CBC & BMP: 08/01/16 09:56 08/01/16 04:29 - Impressions (1) Hypertensive emergency Status: Acute Assessment and plan: Cardiology assisting Better controlled. Cont current therapy Current Visit: Yes (2) Acute on chronic diastolic (congestive) heart failure Status: Acute Assessment and plan: Cardiology assisting Lasix currently being held given worsening renal function. Watch I and O Current Visit: Yes I instructed pt that while sitting up her legs should be elevated and she expressed understanding. (3) Elevated troponin Status: Acute Current Visit: Yes - mgt per cards (4) GEOVANNI (acute kidney injury) Status: Acute Assessment and plan: Patient has GEOVANNI on CKD Nephrology assisting Holding nephrotoxic agents Current Visit: Yes (5) Proteinuria Status: Acute Current Visit: Yes (6) Noncompliance Status: Chronic Current Visit: Yes (7) Constipation - MOM and dulcolax DVT prophylaxis
[2016-08-01] MEDS ORDERED: MAGNESIUM HYDROXIDE SUSP 30 ML UDCUP PO PRN (17:49)
[2016-08-01] MEDS: INSULIN GLARGINE 100 UNIT/ML SUBCUT SCH (22:47)
[2016-08-01] MEDS: BISACODYL 5 MG TABLET PO SCH (22:49)
--- NOTE | 2016-08-01 23:04 | Nephrology Progress Note ---
Nephrology - PN: Subj Interval history: She reported some shortness of breath this morning but felt better later in the a.m. No chest pain Exam (PN)-Nephrology - Vital Signs Vital signs: Period Temp Pulse Resp BP Sys/Florez Pulse Ox Last 24 Hr 98.0 F-98.8 F 73-83 20-22 126-170/65-109 91-98 Exam: ENT: Normal Cardiovascular: Regular rate and rhythm. No murmur rub or gallop Lungs: Clear Extremities: 1+ edema - Lab 08/01/16 09:56 08/01/16 04:29 Most recent lab results Calcium 8.3 MG/DL (8.5-10.1) L 08/01/16 04:29 Magnesium 2.5 MG/DL (1.8-2.4) H 08/01/16 04:29 Assessment and Plan (1) Chronic kidney disease, stage III (moderate) Status: Chronic Assessment and plan: 45-year-old woman admitted with: * Hypertensive urgency. Blood pressure is now controlled * CRF stage III. Creatinine unchanged from yesterday. Hopefully it has peaked * CHF, diastolic. Improved Current Visit: Yes (2) Acute on chronic diastolic (congestive) heart failure Status: Acute Current Visit: Yes (3) Diabetes Status: Acute Current Visit: Yes Qualifiers: Diabetes mellitus type: type 2 Diabetes mellitus complication status: with kidney complications Diabetes mellitus complication detail: with chronic kidney disease Diabetes mellitus intermodal customer service insulin use: with residential use Chronic kidney disease stage: stage 4 (severe) Qualified Code(s): E11.22 - Type 2 diabetes mellitus with diabetic chronic kidney disease; N18.4 - Chronic kidney disease, stage 4 (severe); Z79.4 - intermodal customer service (current) use of insulin (4) Elevated troponin Status: Acute Current Visit: Yes (5) Hypertensive crisis Status: Acute Current Visit: Yes (6) Proteinuria Status: Acute Current Visit: Yes
[2016-08-02] MEDS: HEPARIN 5,000 UNIT/1 ML VIAL SUBCUT SCH ×3 (01:38→18:44)
[2016-08-02 06:14] LABS: Basophils # 0.1 10*3/uL (0.0-0.2); Basophils % 0.7 % (0.0-0.8); Eosinophils # 0.3 10*3/uL (0.0-0.87); Eosinophils % 2.6 % (0.00-10.9); Hematocrit 28.1 VOL% (35.7-47.0); Immature Granulocytes % 0.4 %; Immature Granulocytes Absolute 0.05 #; Lymphocytes # 2.3 10*3/uL (1.4-4.0); Lymphocytes % 17.4 % (21.3-54.2); Mean Corpuscular Hemoglobin 27 PG (27-34); Mean Corpuscular Volume 84.1 FL (87-102); Mean Platelet Volume 11.8 FL (9.6-12.0); Monocytes % 7.3 % (1.7-12.7); Neutrophils # 9.4 10*3/uL (1.4-7.4); Neutrophils % 71.6 % (38.7-73.9); Platelet Count 395 T/CUMM (130-400); Red Blood Count 3.34 MC/CUMM (3.8-5.5); Red Cell Distribution Width 15.5 % (9.3-17.3); White Blood Count 13.1 T/CUMM (4-12)
[2016-08-02 06:41] LABS: Calcium 8.9 MG/DL (8.5-10.1); Magnesium 2.6 MG/DL (1.8-2.4); Osmolality,Calculated 294.1 MOS/KG (273-304); Potassium 4.2 MMOL/L (3.5-5.1)
--- NOTE | 2016-08-02 08:50 | Cardiology Progress Note ---
Assessment and Plan - Time spent with patient Time spent with patient: Less than 30 minutes (1) Hypertensive crisis Status: Acute Assessment and plan: SEE PLAN OF CARE LISTED BELOW. Current Visit: Yes (2) Hypertension Status: Chronic Assessment and plan: SEE PLAN OF CARE LISTED BELOW. Current Visit: Yes (3) Noncompliance Status: Chronic Assessment and plan: SEE PLAN OF CARE LISTED BELOW. Current Visit: Yes (4) Uncontrolled diabetes mellitus Status: Chronic Assessment and plan: SEE PLAN OF CARE LISTED BELOW. Current Visit: Yes (5) Acute on chronic diastolic (congestive) heart failure Status: Acute Assessment and plan: SEE PLAN OF CARE LISTED BELOW. Current Visit: Yes (6) Sleep disorder, unspecified Status: Chronic Assessment and plan: SEE PLAN OF CARE LISTED BELOW. Current Visit: Yes (7) Elevated troponin Status: Acute Assessment and plan: SEE PLAN OF CARE LISTED BELOW. Current Visit: Yes (8) Chronic kidney disease, stage III (moderate) Status: Chronic Assessment and plan: SEE PLAN OF CARE LISTED BELOW. Current Visit: Yes Cardiology - PN: Subj Interval history: BOARDING MOTHER: NEW TO DR. GAMINO PCP: [facility] [[email or web address]] Ms. Cabrera is a 45 y/o BF who presented on 07/28/16 with hypertensive urgency, shortness of breath, and headache. Her blood pressure was 243/145 on admission. She has a history of hypertension, diabetes, chronic renal failure (followed by nephrology in [place]), noncompliance, tobacco use, and suspected sleep apnea. She was placed on a Cardene infusion in an attempt to better control her blood pressure. She is now off of this and we have been adjusting her medications. Echocardiogram was obtained and revealed an EF of 55-60%, moderate LVH, grade II /IV diastolic dysfunction, moderate to severe tricuspid regurgitation. Initial chest x-ray revealed cardiomegaly with CHF. She has been up and around in her room. She remains on O2 via NBP but states today she does not feel any better. She still in pulmonary edema and short of breath. Blood pressure remains mildly elevated despite multiple medication changes. She is now on Hydralazine 100mg PO TID, Metoprolol 75mg PO BID, Nifedipine 90mg PO daily, and Imdur 30mg PO Daily. We discontinued her clonidine after she informed us she had been trialed on this medication before and it made her extremely lethargic and drowsy. Her diuretic is being held for now due to her renal function. Creatinine is down to 4.[address] Epps to follow with further plan and addendum. ASSESSMENT/PLAN. 1. HYPERTENSIVE URGENCY - This is improving. We are continuing to adjust her medications for optimal blood pressure control. Yesterday, we increased her metoprolol to 100mg PO BID and changed her Procardia to be given at bedtime, however, her procardia was not given last night as the order was written since she had received it during the day. Her blood pressure was >200 systolic this morning. I've changed her metoprolol to labetalol 100mg PO BID. Hopefully this will allow us to better control her blood pressure. 2. CHRONIC HYPERTENSION - Will continue to monitor and adjust medications as needed. 3. NONCOMPLIANCE - Stressed the importance of compliance with medications. 4. UNCONTROLLED DIABETES - She is on sliding scale. Hemoglobin A1C was 9.7. 5. DIASTOLIC CHF - She continues to have pulmonary edema and still feels SOB. 6. SUSPECTED MITALI - She will need sleep study evaluation outpatient. 7. ELEVATED TROPONIN - Trivial elevation, suspect this is due to CHF and hypertension. 8. CHRONIC RENAL FAILURE - Nephrology is following. Her creatinine is 4.5 today. Her diuretic is currently being held. Hopefully we can resume her diuresis once her renal function improves. Exam (Progress Note) - Constitutional Vitals: Period Temp Pulse Resp BP Sys/Florez Pulse Ox Last 24 Hr 97.2 F-98.8 F 73-86 20-23 157-205/89-101 90-98 Exam: General: Present: Appears Well, No Apparent Distress. Pleasant and cooperative. Flat affect. Appears comfortable. HEENT: Present: PERRL, Normocephaly, atraumatic. Mucus Membranes Moist. No jaundice noted. Conjunctiva moist and clear, sclerae anicteric Neck: Present: Supple Neck, Midline Trachea, No Masses, No Bruit, No tenderness Cardiac: Present: Regular Rate and Rhythm, No Murmur Lungs: Present: Mild posterior crackles, otherwise clear to auscultation bilaterally, no wheeze, rhonchi, rales. Neuro: Present: Awake, alert, and oriented x3. Moves all extremities well without hemiparesis or paralysis. Grossly Intact. Absent: Resting Tremor, Essential Tremor Abdomen: Present: Soft, Active Bowel Sounds, No Masses, Non-Tender, nondistended. No abdominal bruit or thrill noted. Skin: Present: Clear. Absent: Rash, No skin breakdown. Back: Normal inspection, no vertebral tenderness. Musculoskeletal: Present: No Fluid Collection, No Pain, Normal Range of Motion Extremities: Present: Normal Gait, No Clubbing, No Cyanosis, Upper Extr. Pulses 2+, Lower Extr. Pulses 2+, 1+ BLE pitting edema. Capillary refill less than 3 seconds. Result/EKG - Labs CBC & BMP: 08/02/16 05:17 08/02/16 05:17 Lab Results: I have reviewed the past 24 hour labs Labs: Laboratory Results - last 24 hr 08/01/16 08/01/16 08/01/16 09:56 11:32 16:08 WBC RBC Hgb 9.3 L Hct 28.3 L MCV MCH MCHC RDW Plt Count MPV Neut % (Auto) Lymph % (Auto) [place] % (Auto) Eos % (Auto) Baso % (Auto) Neut # (Auto) Lymph # (Auto) [place] # (Auto) Eos # (Auto) Baso # (Auto) Immature Gran % Nucleated RBC % Immature Gran # Nucleated RBCs # Sodium Potassium Chloride Carbon Dioxide Anion Gap BUN Creatinine GFR Calculation BUN/Creatinine Ratio Glucose POC Glucose 174 H 97 Calculated Osmolality Calcium Magnesium 08/01/16 08/02/16 08/02/16 20:55 05:17 05:17 WBC 13.1 H RBC 3.34 L Hgb 9.0 L Hct 28.1 L MCV 84.1 L MCH 27 MCHC 32.0 RDW 15.5 Plt Count 395 MPV 11.8 Neut % (Auto) 71.6 Lymph % (Auto) 17.4 L [place] % (Auto) 7.3 Eos % (Auto) 2.6 Baso % (Auto) 0.7 Neut # (Auto) 9.4 H Lymph # (Auto) 2.3 [place] # (Auto) 1.0 H Eos # (Auto) 0.3 Baso # (Auto) 0.1 Immature Gran % 0.4 Nucleated RBC % 0.0 Immature Gran # 0.05 Nucleated RBCs # 0.00 Sodium 142 Potassium 4.2 Chloride 110 H Carbon Dioxide 19 L Anion Gap 17.2 H BUN 46 H Creatinine 4.50 H GFR Calculation 16 BUN/Creatinine Ratio 10.00 Glucose 107 H POC Glucose 109 H Calculated Osmolality 294.1 Calcium 8.9 Magnesium 2.6 H 08/02/16 07:32 WBC RBC Hgb Hct MCV MCH MCHC RDW Plt Count MPV Neut % (Auto) Lymph % (Auto) [place] % (Auto) Eos % (Auto) Baso % (Auto) Neut # (Auto) Lymph # (Auto) [place] # (Auto) Eos # (Auto) Baso # (Auto) Immature Gran % Nucleated RBC % Immature Gran # Nucleated RBCs # Sodium Potassium Chloride Carbon Dioxide Anion Gap BUN Creatinine GFR Calculation BUN/Creatinine Ratio Glucose POC Glucose 114 H Calculated Osmolality Calcium Magnesium - EKG EKG results: interpreted by me, sinus rhythm
[2016-08-02] MEDS: INSULIN LISPRO 100 UNIT/ML SUBCUT SCH ×4 (08:57→20:58)
[2016-08-02] MEDS ORDERED: LABETALOL 100 MG TABLET PO SCH (09:00)
[2016-08-02] MEDS: ASPIRIN EC 81 MG TABLET PO SCH (09:34)
[2016-08-02] MEDS: ISOSORBIDE MONONITRATE 30 MG TABLET PO SCH (09:35)
[2016-08-02] MEDS: POLYETHYLENE GLYCOL POWDER 17 GM PACK PO SCH (09:35)
[2016-08-02] MEDS ORDERED: LABETALOL 100 MG TABLET PO ONE (12:27)
[2016-08-02] MEDS ORDERED: LABETALOL 200 MG TABLET PO SCH (12:31)
--- NOTE | 2016-08-02 16:19 | Hospitalist Progress Note ---
Hospitalist: Subjective Interval history: Pt states SOB is better. LE swelling is better. Feels like she doesn't have much of an appetite today. BM x 3 (small) overnight. No fever. Exam - Constitutional Vitals: Period Temp Pulse Resp BP Sys/Florez Pulse Ox Last 24 Hr 97.2 F-98.8 F 76-86 20-23 157-205/90-101 90-98 Exam: A and O x 3, sitting in a chair with legs elevated RRR no M CTAB nonlabored Soft, NT, ND, +BS Warm no c/c +1 pitting BLE edema Results - Labs CBC & BMP: 08/02/16 05:17 08/02/16 05:17 - Impressions (1) Hypertensive emergency- Status: Acute Assessment and plan: Cardiology assisting was better controlled. Meds changed today from metoprolol to labetolol. Cont current therapy Current Visit: Yes (2) Acute on chronic diastolic (congestive) heart failure Status: Acute Assessment and plan: Cardiology assisting Lasix currently being held given worsening renal function. Watch I and O Current Visit: Yes I instructed pt that while sitting up her legs should be elevated and she expressed understanding. (3) Elevated troponin Status: Acute Current Visit: Yes - mgt per cards (4) GEOVANNI (acute kidney injury) Status: Acute Assessment and plan: Patient has GEOVANNI on CKD3 Nephrology assisting Holding nephrotoxic agents. Serial labs Current Visit: Yes (5) Proteinuria Status: Acute Current Visit: Yes (6) Noncompliance Status: Chronic Current Visit: Yes (7) Constipation - MOM prn and Cont dulcolax DVT prophylaxis
[2016-08-02] MEDS: INSULIN GLARGINE 100 UNIT/ML SUBCUT SCH (20:56)
[2016-08-02] MEDS: BISACODYL 5 MG TABLET PO SCH (20:57)
[2016-08-02] MEDS: LABETALOL 200 MG TABLET PO SCH (20:57)
--- NOTE | 2016-08-02 21:11 | Nephrology Progress Note ---
Nephrology - PN: Subj Interval history: She is more comfortable today. S OB improved Exam (PN)-Nephrology - Vital Signs Vital signs: Period Temp Pulse Resp BP Sys/Florez Pulse Ox Last 24 Hr 97.2 F-98.8 F 76-86 18-23 157-205/90-98 90-98 Exam: ENT: Normal Cardiovascular: Regular rate and rhythm. No murmur rub or gallop Lungs: Clear Extremities: 1+ edema - Lab 08/02/16 05:17 08/02/16 05:17 Most recent lab results Calcium 8.9 MG/DL (8.5-10.1) 08/02/16 05:17 Magnesium 2.6 MG/DL (1.8-2.4) H 08/02/16 05:17 Assessment and Plan (1) Chronic kidney disease, stage III (moderate) Status: Chronic Assessment and plan: 45-year-old woman admitted with: * Hypertensive urgency. Blood pressure improved * CRF stage III. Renal function has improved. Urine output has increased without diuretic * CHF, diastolic. Improved Current Visit: Yes (2) Acute on chronic diastolic (congestive) heart failure Status: Acute Current Visit: Yes (3) Diabetes Status: Acute Current Visit: Yes Qualifiers: Diabetes mellitus type: type 2 Diabetes mellitus complication status: with kidney complications Diabetes mellitus complication detail: with chronic kidney disease Diabetes mellitus mcfp insulin use: with lobsterman use Chronic kidney disease stage: stage 4 (severe) Qualified Code(s): E11.22 - Type 2 diabetes mellitus with diabetic chronic kidney disease; N18.4 - Chronic kidney disease, stage 4 (severe); Z79.4 - skilled nursing (current) use of insulin (4) Elevated troponin Status: Acute Current Visit: Yes (5) Hypertensive crisis Status: Acute Current Visit: Yes (6) Proteinuria Status: Acute Current Visit: Yes
[2016-08-03] MEDS: HEPARIN 5,000 UNIT/1 ML VIAL SUBCUT SCH ×3 (01:49→17:35)
[2016-08-03 07:55] LABS: Calcium 8.3 MG/DL (8.5-10.1); Magnesium 2.5 MG/DL (1.8-2.4); Osmolality,Calculated 296.1 MOS/KG (273-304); Potassium 4.1 MMOL/L (3.5-5.1)
[2016-08-03] MEDS: INSULIN LISPRO 100 UNIT/ML SUBCUT SCH ×4 (08:28→21:05)
[2016-08-03] MEDS: LABETALOL 200 MG TABLET PO SCH ×2 (09:23→21:04)
[2016-08-03] MEDS: ASPIRIN EC 81 MG TABLET PO SCH (09:23)
[2016-08-03] MEDS: ISOSORBIDE MONONITRATE 30 MG TABLET PO SCH (09:23)
[2016-08-03] MEDS: POLYETHYLENE GLYCOL POWDER 17 GM PACK PO SCH (09:24)
--- NOTE | 2016-08-03 13:47 | Cardiology Progress Note ---
Assessment and Plan (1) Hypertensive crisis Status: Acute Assessment and plan: 45-year-old female, with end-stage renal disease, presented with hypertensive emergency, pulmonary edema. Diuresis worsened renal function. HTN, higher BPs today, up to 200s. Cont Imdur 30 mg daily. Cont hydralazine Cont nifedipine cont labetalol 400 mg bid, good response edema, will need to add diuretic when renal issues allow Current Visit: Yes (2) Pulmonary edema Status: Acute Current Visit: Yes (3) Acute on chronic diastolic (congestive) heart failure Status: Acute Current Visit: Yes (4) GEOVANNI (acute kidney injury) Status: Acute Current Visit: Yes (5) Diabetes Status: Acute Current Visit: Yes Qualifiers: Diabetes mellitus type: type 2 Diabetes mellitus complication status: with kidney complications Diabetes mellitus complication detail: with chronic kidney disease Diabetes mellitus intermediate insulin use: with intermediate use Chronic kidney disease stage: stage 4 (severe) Qualified Code(s): E11.22 - Type 2 diabetes mellitus with diabetic chronic kidney disease; N18.4 - Chronic kidney disease, stage 4 (severe); Z79.4 - assistant terminal manager (current) use of insulin Cardiology - PN: Subj Interval history: Blood pressure is now in the 130s. She is feeling better. She still has peripheral edema. Creatinine 4.5. Exam (Progress Note) - Constitutional Vitals: Period Temp Pulse Resp BP Sys/Florez Pulse Ox Last 24 Hr 97.9 F-98.7 F 79-88 18-20 125-158/70-91 94-99 General appearance: normal weight, morbidly obese - Head Head exam: Present: normal inspection, normocephalic - Eye Eye exam: Absent: conjunctival injection Pupils: Absent: dilated - ENT ENT exam: Present: normal external ear exam - Neck Neck exam: Present: normal inspection - Respiratory Respiratory exam: Present: decreased breath sounds. Absent: wheezes - Cardiovascular Cardiovascular exam: Present: regular rate and rhythm, systolic murmur - GI/Abdominal GI/Abdominal exam: Present: normal bowel sounds - Extremities Exam Extremities exam: Present: normal inspection, normal capillary refill, edema (1+ ) - Back Exam Back exam: Present: normal inspection - Neurological Exam Neurological exam: Present: alert, oriented X3 - Psychiatric Psychiatric exam: Present: normal affect, normal mood - Skin Skin exam: Present: normal color, warm. Absent: cyanosis Result/EKG - Labs CBC & BMP: 08/02/16 05:17 08/03/16 07:04 Lab Results: I have reviewed the past 24 hour labs Labs: Laboratory Results - last 24 hr 08/02/16 08/02/16 08/03/16 15:36 19:54 04:44 Sodium Potassium Chloride Carbon Dioxide Anion Gap BUN Creatinine GFR Calculation BUN/Creatinine Ratio Glucose POC Glucose 142 H 180 H 152 H Calculated Osmolality Calcium Magnesium 08/03/16 08/03/16 07:04 07:06 Sodium 142 Potassium 4.1 Chloride 110 H Carbon Dioxide 21 Anion Gap 15.1 H BUN 47 H Creatinine 4.60 H GFR Calculation 15 BUN/Creatinine Ratio 10.00 Glucose 134 H POC Glucose 169 H Calculated Osmolality 296.1 Calcium 8.3 L Magnesium 2.5 H - EKG EKG results: interpreted by me
--- NOTE | 2016-08-03 13:52 | Nephrology Progress Note ---
Nephrology - PN: Subj Interval history: She states her breathing is better. No chest pain Exam (PN)-Nephrology - Vital Signs Vital signs: Period Temp Pulse Resp BP Sys/Florez Pulse Ox Last 24 Hr 97.9 F-98.7 F 79-88 18-20 125-158/70-91 94-99 Exam: Gen.: Alert and oriented x3. ENT: Pupils equal round reactive to light. EOMs intact. Mucous membranes moist. Neck: Supple. No JVD or bruit. Cardiovascular: Regular rate and rhythm. No murmur rub or gallop Lungs: Clear Abdomen: Soft. Nontender. Positive bowel sounds. No organomegaly Extremities: 1+ edema - Lab 08/02/16 05:17 08/03/16 07:04 Most recent lab results Calcium 8.3 MG/DL (8.5-10.1) L 08/03/16 07:04 Magnesium 2.5 MG/DL (1.8-2.4) H 08/03/16 07:04 Assessment and Plan (1) Chronic kidney disease, stage III (moderate) Status: Chronic Assessment and plan: 45-year-old woman admitted with: * Hypertensive urgency. Blood pressure improved * CRF stage III. Renal function stable today. Urine output has increased without diuretic * Proteinuria. Serum albumin 2.5. She is clinically nephrotic * CHF, diastolic. Improved Current Visit: Yes (2) Acute on chronic diastolic (congestive) heart failure Status: Acute Current Visit: Yes (3) Diabetes Status: Acute Current Visit: Yes Qualifiers: Diabetes mellitus type: type 2 Diabetes mellitus complication status: with kidney complications Diabetes mellitus complication detail: with chronic kidney disease Diabetes mellitus detention insulin use: with watermaster use Chronic kidney disease stage: stage 4 (severe) Qualified Code(s): E11.22 - Type 2 diabetes mellitus with diabetic chronic kidney disease; N18.4 - Chronic kidney disease, stage 4 (severe); Z79.4 - rat exterminator (current) use of insulin (4) Elevated troponin Status: Acute Current Visit: Yes (5) Hypertensive crisis Status: Acute Current Visit: Yes (6) Proteinuria Status: Acute Current Visit: Yes
--- NOTE | 2016-08-03 15:27 | Hospitalist Progress Note ---
Hospitalist: Subjective Interval history: Patient reports shortness of breath is better. She says that she only sits in the chair with her legs elevated as the bed does not allow her to rest comfortably. She denies any chest pain. She is tolerating oral intake better. She reports that she had 5 bowel movements over the last 24 hours. No fevers or chills. Exam - Constitutional Vitals: Period Temp Pulse Resp BP Sys/Florez Pulse Ox Last 24 Hr 97.9 F-98.7 F 79-88 18-20 125-158/70-91 94-99 Exam: A and O x 3, sitting in a chair with legs elevated RRR no M CTAB nonlabored Soft, NT, ND, +BS Warm no c/c +1 pitting BLE edema Results - Labs CBC & BMP: 08/02/16 05:17 08/03/16 07:04 - Impressions (1) Hypertensive emergency now with essential hypertension - controlled Status: Acute Assessment and plan: Cardiology assisting Cont current therapy labetolol and nifedipine, hydralazine and isosorbide mononitrate. Cont current therapy Current Visit: Yes (2) Acute on chronic diastolic (congestive) heart failure Status: Acute Assessment and plan: Cardiology assisting Lasix currently being held given worsening renal function. Watch I and O. resume lasix once able to do diuresis Will check albumin. If low, may consider adding Current Visit: Yes (3) Elevated troponin Status: Acute Current Visit: Yes - mgt per cards (4) GEOVANNI (acute kidney injury) on chronic kidney disease stage 3 Status: Acute Assessment and plan: Creatinine stable Nephrology assisting Holding nephrotoxic agents. Serial labs Current Visit: Yes (5) Proteinuria Status: Acute Current Visit: Yes -mgt per renal (6) Noncompliance Status: Chronic Current Visit: Yes (7) Constipation- resolved - MOM prn and Cont dulcolax DVT prophylaxis D/W pt and nurse and family. All questions answered.
[2016-08-03] MEDS: BISACODYL 5 MG TABLET PO SCH (21:04)
[2016-08-03] MEDS: INSULIN GLARGINE 100 UNIT/ML SUBCUT SCH (21:05)
[2016-08-04] MEDS: HEPARIN 5,000 UNIT/1 ML VIAL SUBCUT SCH ×3 (02:07→19:39)
[2016-08-04 05:19] LABS: Basophils # 0.1 10*3/uL (0.0-0.2); Basophils % 0.6 % (0.0-0.8); Eosinophils # 0.4 10*3/uL (0.0-0.87); Eosinophils % 2.9 % (0.00-10.9); Hematocrit 23.8 VOL% (35.7-47.0); Hemoglobin 7.6 GM/DL (12.0-16.0); Immature Granulocytes % 0.5 %; Immature Granulocytes Absolute 0.06 #; Lymphocytes # 2.3 10*3/uL (1.4-4.0); Mean Corpuscular HGB Conc 31.9 GM/DL (32-36); Mean Corpuscular Hemoglobin 27 PG (27-34); Mean Corpuscular Volume 84.4 FL (87-102); Mean Platelet Volume 11.8 FL (9.6-12.0); Monocytes % 8.1 % (1.7-12.7); Neutrophils # 8.8 10*3/uL (1.4-7.4); Neutrophils % 69.9 % (38.7-73.9); Platelet Count 363 T/CUMM (130-400); Red Blood Count 2.82 MC/CUMM (3.8-5.5); Red Cell Distribution Width 15.9 % (9.3-17.3); White Blood Count 12.6 T/CUMM (4-12)
[2016-08-04 05:43] LABS: Albumin 2.5 G/DL (3.4-5.0); Calcium 8.3 MG/DL (8.5-10.1); Magnesium 2.6 MG/DL (1.8-2.4); Osmolality,Calculated 294.3 MOS/KG (273-304); Phosphorous 4.4 MG/DL (2.5-4.9); Potassium 4.4 MMOL/L (3.5-5.1)
--- NOTE | 2016-08-04 10:18 | Hospitalist Progress Note ---
Hospitalist: Subjective Interval history: Patient reports dizziness when she gets up and moves across the room. She reports her shortness of breath is better and has been able to wean from 3 L of oxygen to 0.75 L of oxygen. Patient denies any chest pain. Her oral intake has improved. No abdominal pain. Positive bowel movements Exam - Constitutional Vitals: Period Temp Pulse Resp BP Sys/Florez Pulse Ox Last 24 Hr 98.2 F-99.0 F 78-88 18-20 132-154/69-91 91-97 Exam: A and O x 3, sitting in a chair with legs elevated RRR no M CTAB nonlabored with good aeration Soft, NT, ND, +BS Warm no c/c +1 pitting BLE edema Results - Labs CBC & BMP: 08/04/16 04:46 08/04/16 04:46 - Impressions (1) Dizziness Will check orthostatics. Hemoglobin dropped from 9 to 7.8. ?lab error. Recheck H and H now. Check FOBT. May need to adjust some of her blood pressure medications. (2) Hypertensive emergency now with essential hypertension - controlled Status: Acute Assessment and plan: Cardiology assisting Cont current therapy labetolol and nifedipine, hydralazine and isosorbide mononitrate. Cont current therapy Current Visit: Yes (3) Acute on chronic diastolic (congestive) heart failure Status: Acute Assessment and plan: Cardiology assisting Lasix currently being held given worsening renal function. Watch I and O. resume lasix once able to do diuresis Albumin is 2.5. Will order albumin x 3 doses. Current Visit: Yes (4) Elevated troponin Status: Acute Current Visit: Yes - mgt per cards (5) GEOVANNI (acute kidney injury) on chronic kidney disease stage 3 Status: Acute Assessment and plan: Creatinine stable Nephrology assisting Holding nephrotoxic agents. Serial labs Current Visit: Yes (6) Proteinuria Status: Acute Current Visit: Yes -mgt per renal (7) Noncompliance Status: Chronic Current Visit: Yes (8) Constipation- resolved - MOM prn and Cont dulcolax DVT prophylaxis D/W pt, nephrology and nurse. All questions answered.
[2016-08-04 10:52] LABS: Hematocrit 24.4 VOL% (35.7-47.0); Hemoglobin 7.9 GM/DL (12.0-16.0)
[2016-08-04] MEDS: INSULIN LISPRO 100 UNIT/ML SUBCUT SCH ×4 (10:55→21:15)
[2016-08-04] MEDS: ASPIRIN EC 81 MG TABLET PO SCH (11:35)
[2016-08-04] MEDS: ISOSORBIDE MONONITRATE 30 MG TABLET PO SCH (11:35)
[2016-08-04] MEDS: LABETALOL 200 MG TABLET PO SCH ×2 (11:36→21:08)
[2016-08-04] MEDS: POLYETHYLENE GLYCOL POWDER 17 GM PACK PO SCH (11:37)
[2016-08-04] MEDS: ALBUMIN 5% 25 GM in PREMIX 1 EACH IV SCH ×2 (11:37→17:41)
--- NOTE | 2016-08-04 15:50 | Cardiology Progress Note ---
Assessment and Plan - Time spent with patient Time spent with patient: Less than 30 minutes (1) Hypertensive crisis Status: Acute Assessment and plan: SEE PLAN OF CARE LISTED BELOW. Current Visit: Yes (2) Hypertension Status: Chronic Assessment and plan: SEE PLAN OF CARE LISTED BELOW. Current Visit: Yes (3) Noncompliance Status: Chronic Assessment and plan: SEE PLAN OF CARE LISTED BELOW. Current Visit: Yes (4) Uncontrolled diabetes mellitus Status: Chronic Assessment and plan: SEE PLAN OF CARE LISTED BELOW. Current Visit: Yes (5) Acute on chronic diastolic (congestive) heart failure Status: Acute Assessment and plan: SEE PLAN OF CARE LISTED BELOW. Current Visit: Yes (6) Sleep disorder, unspecified Status: Chronic Assessment and plan: SEE PLAN OF CARE LISTED BELOW. Current Visit: Yes (7) Elevated troponin Status: Acute Assessment and plan: SEE PLAN OF CARE LISTED BELOW. Current Visit: Yes (8) Chronic kidney disease, stage III (moderate) Status: Chronic Assessment and plan: SEE PLAN OF CARE LISTED BELOW. 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 Cabrera is a 45 y/o BF who presented on 07/28/16 with hypertensive urgency, shortness of breath, and headache. Her blood pressure was 243/145 on admission. She has a history of hypertension, diabetes, chronic renal failure (followed by nephrology in [place]), noncompliance, tobacco use, and suspected sleep apnea. She was placed on a Cardene infusion in an attempt to better control her blood pressure. She is now off of this and we have been adjusting her medications. Echocardiogram was obtained and revealed an EF of 55-60%, moderate LVH, grade II /IV diastolic dysfunction, moderate to severe tricuspid regurgitation. Initial chest x-ray revealed cardiomegaly with CHF. She has been up and around in her room. She remains on O2 via NBP but states today she does not feel any better. She still in pulmonary edema and short of breath. Blood pressure remains mildly elevated despite multiple medication changes. She is now on Hydralazine 100mg PO TID, Labetalol 400mg PO BID, Nifedipine 90mg PO daily, and Imdur 30mg PO Daily. We discontinued her clonidine after she informed us she had been trialed on this medication before and it made her extremely lethargic and drowsy. Her diuretic is being held for now due to her renal function. Creatinine 4.8 today. ASSESSMENT/PLAN. 1. HYPERTENSIVE URGENCY - This is improving. We are continuing to adjust her medications for optimal blood pressure control. Continue Imdur 30mg po daily. Continue hydralazine. Continue nifedipine. Continue Labetalol 400mg po BID. 2. CHRONIC HYPERTENSION - Will continue to monitor and adjust medications as needed. 3. NONCOMPLIANCE - Stressed the importance of compliance with medications. 4. UNCONTROLLED DIABETES - She is on sliding scale. Hemoglobin A1C was 9.7. 5. DIASTOLIC CHF - She continues to have pulmonary edema and still feels SOB. 6. SUSPECTED MITALI - She will need sleep study evaluation outpatient. 7. ELEVATED TROPONIN - Trivial elevation, suspect this is due to CHF and hypertension. 8. CHRONIC RENAL FAILURE - Nephrology is following. Her creatinine is 4.8 today. Her diuretic is currently being held. Hopefully we can resume her diuresis once her renal function improves. Dr. Epps to follow with further plan and addendum. Exam (Progress Note) - Constitutional Vitals: Period Temp Pulse Resp BP Sys/Florez Pulse Ox Last 24 Hr 98.0 F-99.0 F 78-91 18-20 132-156/69-91 91-98 Exam: General: Present: Appears Well, No Apparent Distress. Pleasant and cooperative. Flat affect. Appears comfortable. HEENT: Present: PERRL, Normocephaly, atraumatic. Mucus Membranes Moist. No jaundice noted. Conjunctiva moist and clear, sclerae anicteric Neck: Present: Supple Neck, Midline Trachea, No Masses, No Bruit, No tenderness Cardiac: Present: Regular Rate and Rhythm, No Murmur Lungs: Present: clear to auscultation bilaterally, no wheeze, rhonchi, rales. Neuro: Present: Awake, alert, and oriented x3. Moves all extremities well without hemiparesis or paralysis. Grossly Intact. Absent: Resting Tremor, Essential Tremor Abdomen: Present: Soft, Active Bowel Sounds, No Masses, Non-Tender, nondistended. No abdominal bruit or thrill noted. Skin: Present: Clear. Absent: Rash, No skin breakdown. Back: Normal inspection, no vertebral tenderness. Musculoskeletal: Present: No Fluid Collection, No Pain, Normal Range of Motion Extremities: Present: Normal Gait, No Clubbing, No Cyanosis, Upper Extr. Pulses 2+, Lower Extr. Pulses 2+, 1+ BLE pitting edema. Capillary refill less than 3 seconds. Result/EKG - Labs CBC & BMP: 08/04/16 10:45 08/04/16 04:46 Lab Results: I have reviewed the past 24 hour labs Labs: Laboratory Results - last 24 hr 08/03/16 08/03/16 08/04/16 16:28 20:50 04:46 WBC 12.6 H RBC 2.82 L Hgb 7.6 L Hct 23.8 L MCV 84.4 L MCH 27 MCHC 31.9 L RDW 15.9 Plt Count 363 MPV 11.8 Neut % (Auto) 69.9 Lymph % (Auto) 18.0 L [place] % (Auto) 8.1 Eos % (Auto) 2.9 Baso % (Auto) 0.6 Neut # (Auto) 8.8 H Lymph # (Auto) 2.3 [place] # (Auto) 1.0 H Eos # (Auto) 0.4 Baso # (Auto) 0.1 Immature Gran % 0.5 Nucleated RBC % 0.0 Immature Gran # 0.06 Nucleated RBCs # 0.00 Sodium Potassium Chloride Carbon Dioxide Anion Gap BUN Creatinine GFR Calculation BUN/Creatinine Ratio Glucose POC Glucose 152 H 199 H Calculated Osmolality Calcium Phosphorus Magnesium B-Natriuretic Peptide Albumin 08/04/16 08/04/16 08/04/16 04:46 04:46 07:11 WBC RBC Hgb Hct MCV MCH MCHC RDW Plt Count MPV Neut % (Auto) Lymph % (Auto) [place] % (Auto) Eos % (Auto) Baso % (Auto) Neut # (Auto) Lymph # (Auto) [place] # (Auto) Eos # (Auto) Baso # (Auto) Immature Gran % Nucleated RBC % Immature Gran # Nucleated RBCs # Sodium 141 Potassium 4.4 Chloride 109 H Carbon Dioxide 22 Anion Gap 14.4 BUN 46 H Creatinine 4.80 H GFR Calculation 14 BUN/Creatinine Ratio 9.00 Glucose 132 H POC Glucose 153 H Calculated Osmolality 294.3 Calcium 8.3 L Phosphorus 4.4 Magnesium 2.6 H B-Natriuretic Peptide 419 H Albumin 2.5 L 08/04/16 08/04/16 10:45 11:23 WBC RBC Hgb 7.9 L Hct 24.4 L MCV MCH MCHC RDW Plt Count MPV Neut % (Auto) Lymph % (Auto) [place] % (Auto) Eos % (Auto) Baso % (Auto) Neut # (Auto) Lymph # (Auto) [place] # (Auto) Eos # (Auto) Baso # (Auto) Immature Gran % Nucleated RBC % Immature Gran # Nucleated RBCs # Sodium Potassium Chloride Carbon Dioxide Anion Gap BUN Creatinine GFR Calculation BUN/Creatinine Ratio Glucose POC Glucose 147 H Calculated Osmolality Calcium Phosphorus Magnesium B-Natriuretic Peptide Albumin - EKG EKG results: interpreted by me, sinus rhythm
--- NOTE | 2016-08-04 16:18 | Nephrology Progress Note ---
Nephrology - PN: Subj Interval history: Shortness of breath has improved. No new problems Exam (PN)-Nephrology - Vital Signs Vital signs: Period Temp Pulse Resp BP Sys/Florez Pulse Ox Last 24 Hr 98.0 F-99.0 F 83-91 18-20 127-156/69-89 91-99 Exam: ENT: Normal Cardiovascular: Regular rate and rhythm. No murmur rub or gallop Lungs: Clear Extremities: 1+ edema - Lab 08/04/16 10:45 08/04/16 04:46 Most recent lab results Calcium 8.3 MG/DL (8.5-10.1) L 08/04/16 04:46 Phosphorus 4.4 MG/DL (2.5-4.9) 08/04/16 04:46 Magnesium 2.6 MG/DL (1.8-2.4) H 08/04/16 04:46 Assessment and Plan (1) Chronic kidney disease, stage III (moderate) Status: Chronic Assessment and plan: 45-year-old woman admitted with: * Hypertensive urgency. Blood pressure improved * CRF stage III. Creatinine slightly higher. Volume status has improved. Recommend holding diuretic at present * Proteinuria. Serum albumin 2.5. She is clinically nephrotic * CHF, diastolic. Improved. Current Visit: Yes (2) Acute on chronic diastolic (congestive) heart failure Status: Acute Current Visit: Yes (3) Diabetes Status: Acute Current Visit: Yes Qualifiers: Diabetes mellitus type: type 2 Diabetes mellitus complication status: with kidney complications Diabetes mellitus complication detail: with chronic kidney disease Diabetes mellitus jail insulin use: with watermaster use Chronic kidney disease stage: stage 4 (severe) Qualified Code(s): E11.22 - Type 2 diabetes mellitus with diabetic chronic kidney disease; N18.4 - Chronic kidney disease, stage 4 (severe); Z79.4 - FDC (current) use of insulin (4) Elevated troponin Status: Acute Current Visit: Yes (5) Hypertensive crisis Status: Acute Current Visit: Yes (6) Proteinuria Status: Acute Current Visit: Yes
[2016-08-04] MEDS: BISACODYL 5 MG TABLET PO SCH (21:07)
[2016-08-04] MEDS: INSULIN GLARGINE 100 UNIT/ML SUBCUT SCH (21:08)
[2016-08-05] MEDS: HEPARIN 5,000 UNIT/1 ML VIAL SUBCUT SCH ×3 (03:04→18:22)
[2016-08-05] MEDS: ALBUMIN 5% 25 GM in PREMIX 1 EACH IV SCH (03:04)
[2016-08-05 04:27] LABS: Basophils # 0.1 10*3/uL (0.0-0.2); Basophils % 0.5 % (0.0-0.8); Eosinophils # 0.3 10*3/uL (0.0-0.87); Eosinophils % 3.1 % (0.00-10.9); Hematocrit 23.1 VOL% (35.7-47.0); Hemoglobin 7.3 GM/DL (12.0-16.0); Immature Granulocytes % 0.5 %; Immature Granulocytes Absolute 0.05 #; Lymphocytes # 1.9 10*3/uL (1.4-4.0); Lymphocytes % 18.9 % (21.3-54.2); Mean Corpuscular HGB Conc 31.6 GM/DL (32-36); Mean Corpuscular Hemoglobin 27 PG (27-34); Mean Corpuscular Volume 86.2 FL (87-102); Mean Platelet Volume 11.6 FL (9.6-12.0); Neutrophils # 6.7 10*3/uL (1.4-7.4); Platelet Count 340 T/CUMM (130-400); Red Blood Count 2.68 MC/CUMM (3.8-5.5); Red Cell Distribution Width 16.2 % (9.3-17.3); White Blood Count 9.9 T/CUMM (4-12)
[2016-08-05 04:55] LABS: Calcium 8.3 MG/DL (8.5-10.1); Magnesium 2.8 MG/DL (1.8-2.4); Osmolality,Calculated 294.1 MOS/KG (273-304); Potassium 4.5 MMOL/L (3.5-5.1)
[2016-08-05 04:56] LABS: Calcium 8.6 MG/DL (8.5-10.1); Osmolality,Calculated 294.1 MOS/KG (273-304); Phosphorous 4.5 MG/DL (2.5-4.9); Potassium 4.6 MMOL/L (3.5-5.1)
[2016-08-05] MEDS: INSULIN LISPRO 100 UNIT/ML SUBCUT SCH ×4 (09:44→21:09)
[2016-08-05] MEDS: ASPIRIN EC 81 MG TABLET PO SCH (09:45)
[2016-08-05] MEDS: ISOSORBIDE MONONITRATE 30 MG TABLET PO SCH (09:45)
[2016-08-05] MEDS: LABETALOL 200 MG TABLET PO SCH ×2 (09:45→21:07)
[2016-08-05] MEDS: POLYETHYLENE GLYCOL POWDER 17 GM PACK PO SCH (09:47)
--- NOTE | 2016-08-05 11:30 | Nephrology Progress Note ---
Nephrology - PN: Subj Interval history: Ms. Cabrera is seen in follow-up of her chronic renal impairment and presentation with significant hypertension. Blood pressures well controlled but she has orthopnea and dyspnea on exertion. She still has some sacral edema and peripheral edema. Chest is fairly clear but I think she needs further diuresis. Her creatinine did rise to 4.8 from 4.1 on admission with control blood pressure. I do not think she is volume depleted and think we should resume her diuretic. Exam (PN)-Nephrology - Vital Signs Vital signs: Period Temp Pulse Resp BP Sys/Florez Pulse Ox Last 24 Hr 98.0 F-98.7 F 84-95 18-20 127-156/71-89 91-99 - Lab 08/05/16 03:24 08/05/16 03:24 Most recent lab results Calcium 8.6 MG/DL (8.5-10.1) 08/05/16 03:24 Phosphorus 4.5 MG/DL (2.5-4.9) 08/05/16 03:24 Magnesium 2.8 MG/DL (1.8-2.4) H 08/05/16 03:24
--- NOTE | 2016-08-05 11:34 | Hospitalist Progress Note ---
Hospitalist: Subjective Interval history: Patient states she gets dizzy when she gets up. Orthostatics were checked yesterday but documented as negative. No chest pain. Shortness of breath is stable. No fever. Exam - Constitutional Vitals: Period Temp Pulse Resp BP Sys/Florez Pulse Ox Last 24 Hr 98.0 F-98.7 F 84-95 18-20 127-156/71-89 91-99 Exam: A and O x 3, sitting in a chair with legs elevated RRR no M CTAB nonlabored with good aeration Soft, NT, ND, +BS Warm no c/c +1 nonpitting BLE edema Results - Labs CBC & BMP: 08/05/16 03:24 08/05/16 03:24 - Impressions (1) Dizziness Orthostatics negative. Hemoglobin dropped from 9 to 7.8. Recheck of the labs revealed that this is likely accurate. Will transfuse 2 units of packed red blood cells. Awaiting a fecal occult blood test. (2) lower extremity swelling -May be related to CHF but given her significant proteinuria she is at risk for DVTs due to loss of protein C and protein S. Will check lower extremity Dopplers. (3)Hypertensive emergency now with essential hypertension - controlled Status: Acute Assessment and plan: Cardiology assisting Cont current therapy labetolol and nifedipine, hydralazine and isosorbide mononitrate. Cont current therapy Current Visit: Yes (3) Acute on chronic diastolic (congestive) heart failure Status: Acute Assessment and plan: Cardiology assisting Lasix was restarted by nephrology. Watch I and O. Albumin is 2.5. s/p albumin x 3 doses. Current Visit: Yes (4) Elevated troponin Status: Acute Current Visit: Yes - mgt per cards (5) GEOVANNI (acute kidney injury) on chronic kidney disease stage 3 Status: Acute Assessment and plan: Nephrology assisting Holding nephrotoxic agents. Serial labs Current Visit: Yes (6) Proteinuria Status: Acute Current Visit: Yes -mgt per renal (7) Noncompliance Status: Chronic Current Visit: Yes (8) Constipation- resolved - MOM prn and Cont dulcolax DVT prophylaxis D/W pt and nurse. All questions answered. I will be away several days. 1 of my associates will follow in my absence.
--- NOTE | 2016-08-05 12:34 | Cardiology Progress Note ---
Assessment and Plan (1) Hypertensive crisis Status: Acute Assessment and plan: 45-year-old female, with severe GEOVANNI on CKD, presented with hypertensive emergency, pulmonary edema. Diuresis worsened renal function. Now better blood pressure control. Cont Imdur 30 mg daily. Cont hydralazine Cont nifedipine cont labetalol 400 mg bid, good response edema, IV Lasix was started per renal recommendations Current Visit: Yes (2) Pulmonary edema Status: Acute Current Visit: Yes (3) Acute on chronic diastolic (congestive) heart failure Status: Acute Current Visit: Yes (4) GEOVANNI (acute kidney injury) Status: Acute Current Visit: Yes (5) Diabetes Status: Acute Current Visit: Yes Qualifiers: Diabetes mellitus type: type 2 Diabetes mellitus complication status: with kidney complications Diabetes mellitus complication detail: with chronic kidney disease Diabetes mellitus bed bug exterminator insulin use: with bed bug exterminator use Chronic kidney disease stage: stage 4 (severe) Qualified Code(s): E11.22 - Type 2 diabetes mellitus with diabetic chronic kidney disease; N18.4 - Chronic kidney disease, stage 4 (severe); Z79.4 - half-way (current) use of insulin Cardiology - PN: Subj Interval history: She is feeling better. The wheezing resolved. The blood pressure is much better controlled. Exam (Progress Note) - Constitutional Vitals: Period Temp Pulse Resp BP Sys/Florez Pulse Ox Last 24 Hr 98.3 F-98.7 F 84-95 18-20 127-151/71-84 95-99 General appearance: normal weight, morbidly obese - Head Head exam: Present: normal inspection, normocephalic - Eye Eye exam: Absent: conjunctival injection Pupils: Absent: dilated - ENT ENT exam: Present: normal external ear exam - Neck Neck exam: Present: normal inspection - Respiratory Respiratory exam: Present: decreased breath sounds, prolonged expiratory phase - Cardiovascular Cardiovascular exam: Present: regular rate and rhythm, systolic murmur - GI/Abdominal GI/Abdominal exam: Present: normal bowel sounds, distended. Absent: firm - Extremities Exam Extremities exam: Present: normal inspection, normal capillary refill, edema (2+ ) - Back Exam Back exam: Present: normal inspection - Neurological Exam Neurological exam: Present: alert, oriented X3 - Psychiatric Psychiatric exam: Present: normal affect, normal mood - Skin Skin exam: Present: normal color, warm. Absent: cyanosis Result/EKG - Labs CBC & BMP: 05/27/17 03:24 08/05/16 03:24 Lab Results: I have reviewed the past 24 hour labs Labs: Laboratory Results - last 24 hr 08/04/16 08/04/16 08/05/16 16:59 21:06 03:24 WBC 9.9 RBC 2.68 L Hgb 7.3 L Hct 23.1 L MCV 86.2 L MCH 27 MCHC 31.6 L RDW 16.2 Plt Count 340 MPV 11.6 Neut % (Auto) 67.0 Lymph % (Auto) 18.[address] [place] % (Auto) 10.0 Eos % (Auto) 3.1 Baso % (Auto) 0.5 Neut # (Auto) 6.7 Lymph # (Auto) 1.9 [place] # (Auto) 1.0 H Eos # (Auto) 0.3 Baso # (Auto) 0.1 Immature Gran % 0.5 Nucleated RBC % 0.0 Immature Gran # 0.05 Nucleated RBCs # 0.00 Sodium Potassium Chloride Carbon Dioxide Anion Gap BUN Creatinine GFR Calculation BUN/Creatinine Ratio Glucose POC Glucose 154 H 201 H Calculated Osmolality Calcium Phosphorus Magnesium Albumin 08/05/16 08/05/16 08/05/16 03:24 03:24 07:01 WBC RBC Hgb Hct MCV MCH MCHC RDW Plt Count MPV Neut % (Auto) Lymph % (Auto) [place] % (Auto) Eos % (Auto) Baso % (Auto) Neut # (Auto) Lymph # (Auto) [place] # (Auto) Eos # (Auto) Baso # (Auto) Immature Gran % Nucleated RBC % Immature Gran # Nucleated RBCs # Sodium 142 142 Potassium 4.6 4.5 Chloride 111 H 110 H Carbon Dioxide 19 L 20 L Anion Gap 16.6 H 16.5 H BUN 42 H 42 H Creatinine 4.80 H 4.80 H GFR Calculation 14 14 BUN/Creatinine Ratio 8.00 8.00 Glucose 122 H 122 H POC Glucose 109 H Calculated Osmolality 294.1 294.1 Calcium 8.6 8.3 L Phosphorus 4.5 Magnesium 2.8 H Albumin 3.0 L 08/05/16 12:20 WBC RBC Hgb Hct MCV MCH MCHC RDW Plt Count MPV Neut % (Auto) Lymph % (Auto) [place] % (Auto) Eos % (Auto) Baso % (Auto) Neut # (Auto) Lymph # (Auto) [place] # (Auto) Eos # (Auto) Baso # (Auto) Immature Gran % Nucleated RBC % Immature Gran # Nucleated RBCs # Sodium Potassium Chloride Carbon Dioxide Anion Gap BUN Creatinine GFR Calculation BUN/Creatinine Ratio Glucose POC Glucose 129 H Calculated Osmolality Calcium Phosphorus Magnesium Albumin - EKG EKG results: interpreted by me
[2016-08-05] MEDS ORDERED: SODIUM CHLORIDE 0.9% 250 ML IV PRN (15:59)
--- NOTE | 2016-08-05 17:53 | Ultrasound Report ---
History: Lower extremity swelling and pain Date: 08/05/2016 Study: Bilateral lower extremity color-flow venous Doppler study Comparison exam: No previous Color Doppler, wave form analysis, and compression analysis of the deep veins of both lower extremities from the common femoral vein level through the popliteal vein level shows that the veins are readily compressible. There is no abnormal intraluminal material to suggest thrombus. Waveform analysis is unremarkable. Ultrasound images were captured and archived Impression: Normal bilateral lower extremity color flow venous Doppler study. No evidence of acute DVT PROCEDURE INTERPRETED AT [facility] DEPARTMENT OF RADIOLOGY Final Report Signed by: Dr. Jeanne Roche
[2016-08-05] MEDS: BISACODYL 5 MG TABLET PO SCH (21:08)
[2016-08-05] MEDS: INSULIN GLARGINE 100 UNIT/ML SUBCUT SCH (21:09)
[2016-08-06] MEDS: HEPARIN 5,000 UNIT/1 ML VIAL SUBCUT SCH ×3 (02:48→18:15)
[2016-08-06 05:21] LABS: Basophils # 0.1 10*3/uL (0.0-0.2); Basophils % 0.7 % (0.0-0.8); Eosinophils # 0.4 10*3/uL (0.0-0.87); Eosinophils % 3.4 % (0.00-10.9); Hematocrit 31.7 VOL% (35.7-47.0); Immature Granulocytes % 0.4 %; Immature Granulocytes Absolute 0.04 #; Lymphocytes # 2.2 10*3/uL (1.4-4.0); Lymphocytes % 19.4 % (21.3-54.2); Mean Corpuscular HGB Conc 32.8 GM/DL (32-36); Mean Corpuscular Hemoglobin 28 PG (27-34); Mean Platelet Volume 11.7 FL (9.6-12.0); Monocytes # 1.1 10*3/uL (0.11-0.8); Monocytes % 9.4 % (1.7-12.7); Neutrophils # 7.5 10*3/uL (1.4-7.4); Neutrophils % 66.7 % (38.7-73.9); Platelet Count 340 T/CUMM (130-400); Red Cell Distribution Width 15.1 % (9.3-17.3); White Blood Count 11.2 T/CUMM (4-12)
[2016-08-06 05:39] LABS: Hemoglobin 10.4 GM/DL (12.0-16.0); Red Blood Count 3.73 MC/CUMM (3.8-5.5)
[2016-08-06 05:51] LABS: Magnesium 2.8 MG/DL (1.8-2.4); Osmolality,Calculated 292.1 MOS/KG (273-304); Potassium 4.9 MMOL/L (3.5-5.1)
[2016-08-06] MEDS: ISOSORBIDE MONONITRATE 30 MG TABLET PO SCH (08:20)
[2016-08-06] MEDS: LABETALOL 200 MG TABLET PO SCH ×2 (08:20→22:08)
[2016-08-06] MEDS: ASPIRIN EC 81 MG TABLET PO SCH (08:20)
[2016-08-06] MEDS: INSULIN LISPRO 100 UNIT/ML SUBCUT SCH ×4 (08:24→22:09)
[2016-08-06] MEDS: POLYETHYLENE GLYCOL POWDER 17 GM PACK PO SCH (08:25)
[2016-08-06] MEDS ORDERED: FUROSEMIDE 40 MG/4 ML VIAL IV SCH (09:00)
--- NOTE | 2016-08-06 10:44 | Cardiology Progress Note ---
Assessment and Plan (1) Hypertensive crisis Status: Acute Assessment and plan: 45-year-old female, with severe GEOVANNI on CKD, presented with hypertensive emergency, pulmonary edema. Diuresis worsened renal function. This was held for several weeks. He had severe hypertension, which improved. Cont Imdur Cont hydralazine Cont nifedipine cont labetalol 400 mg bid, good response. Blood pressure is elevated today, if remains elevated, despite diuresis, may increase dose. edema, IV Lasix was started per renal recommendations Current Visit: Yes (2) Pulmonary edema Status: Acute Current Visit: Yes (3) Acute on chronic diastolic (congestive) heart failure Status: Acute Current Visit: Yes (4) GEOVANNI (acute kidney injury) Status: Acute Current Visit: Yes (5) Diabetes Status: Acute Current Visit: Yes Qualifiers: Diabetes mellitus type: type 2 Diabetes mellitus complication status: with kidney complications Diabetes mellitus complication detail: with chronic kidney disease Diabetes mellitus retirement insulin use: with retirement use Chronic kidney disease stage: stage 4 (severe) Qualified Code(s): E11.22 - Type 2 diabetes mellitus with diabetic chronic kidney disease; N18.4 - Chronic kidney disease, stage 4 (severe); Z79.4 - [facility] (current) use of insulin Cardiology - PN: Subj Interval history: She is feeling better. Shortness of breath improved. Blood pressure elevated again today. Diuresis was started yesterday. Exam (Progress Note) - Constitutional Vitals: Period Temp Pulse Resp BP Sys/Florez Pulse Ox Last 24 Hr 97.9 F-98.6 F 81-89 18-22 132-183/74-101 94-97 General appearance: normal weight, morbidly obese - Head Head exam: Present: normal inspection, normocephalic - Eye Eye exam: Absent: conjunctival injection Pupils: Absent: dilated - ENT ENT exam: Present: normal exam, normal external ear exam - Neck Neck exam: Present: normal inspection - Respiratory Respiratory exam: Present: decreased breath sounds. Absent: rhonchi, wheezes - Cardiovascular Cardiovascular exam: Present: regular rate and rhythm, systolic murmur - GI/Abdominal GI/Abdominal exam: Present: normal bowel sounds - Extremities Exam Extremities exam: Present: normal inspection, normal capillary refill, edema (1+ ) - Neurological Exam Neurological exam: Present: alert, oriented X3 - Psychiatric Psychiatric exam: Present: normal affect, normal mood - Skin Skin exam: Present: normal color, warm. Absent: cyanosis Result/EKG - Labs CBC & BMP: 08/06/16 04:49 08/06/16 04:49 Lab Results: I have reviewed the past 24 hour labs Labs: Laboratory Results - last 24 hr 08/05/16 08/05/16 08/05/16 03:22 12:20 16:23 WBC RBC Hgb Hct MCV MCH MCHC RDW Plt Count MPV Neut % (Auto) Lymph % (Auto) [place] % (Auto) Eos % (Auto) Baso % (Auto) Neut # (Auto) Lymph # (Auto) [place] # (Auto) Eos # (Auto) Baso # (Auto) Immature Gran % Nucleated RBC % Immature Gran # Nucleated RBCs # Sodium Potassium Chloride Carbon Dioxide Anion Gap BUN Creatinine GFR Calculation BUN/Creatinine Ratio Glucose POC Glucose 129 H 187 H Calculated Osmolality Calcium Magnesium Blood Type B POSITIVE Antibody Screen Negative Crossmatch See Detail 08/05/16 08/05/16 08/06/16 17:18 19:38 04:49 WBC 11.2 RBC 3.73 L D Hgb 10.4 L D Hct 31.7 L MCV 85.0 L MCH 28 MCHC 32.8 RDW 15.1 Plt Count 340 MPV 11.7 Neut % (Auto) 66.7 Lymph % (Auto) 19.4 L [place] % (Auto) 9.4 Eos % (Auto) 3.4 Baso % (Auto) 0.7 Neut # (Auto) 7.5 H Lymph # (Auto) 2.2 [place] # (Auto) 1.1 H Eos # (Auto) 0.4 Baso # (Auto) 0.1 Immature Gran % 0.4 Nucleated RBC % 0.0 Immature Gran # 0.04 Nucleated RBCs # 0.00 Sodium Potassium Chloride Carbon Dioxide Anion Gap BUN Creatinine GFR Calculation BUN/Creatinine Ratio Glucose POC Glucose 155 H Calculated Osmolality Calcium Magnesium Blood Type B POSITIVE Antibody Screen Crossmatch 08/06/16 08/06/16 04:49 07:09 WBC RBC Hgb Hct MCV MCH MCHC RDW Plt Count MPV Neut % (Auto) Lymph % (Auto) [place] % (Auto) Eos % (Auto) Baso % (Auto) Neut # (Auto) Lymph # (Auto) [place] # (Auto) Eos # (Auto) Baso # (Auto) Immature Gran % Nucleated RBC % Immature Gran # Nucleated RBCs # Sodium 142 Potassium 4.9 Chloride 111 H Carbon Dioxide 20 L Anion Gap 15.9 H BUN 41 H Creatinine 4.60 H GFR Calculation 15 BUN/Creatinine Ratio 8.00 Glucose 102 POC Glucose 132 H Calculated Osmolality 292.1 Calcium 9.0 Magnesium 2.8 H Blood Type Antibody Screen Crossmatch - EKG EKG results: interpreted by me
--- NOTE | 2016-08-06 10:55 | Nephrology Progress Note ---
Nephrology - PN: Subj Interval history: Ms. Cabrera is seen in follow-up of her renal impairment. She is status post transfusion and now has a hematocrit of approximately 30%. She still has tight peripheral edema and needs diuresis. She is receiving 80 of Lasix IV daily and will increase that to 120 mg daily. If necessary we can further increase her diuretics. Her chest is clear' she does describe significant dyspnea on exertion Exam (PN)-Nephrology - Vital Signs Vital signs: Period Temp Pulse Resp BP Sys/Florez Pulse Ox Last 24 Hr 97.9 F-98.6 F 81-89 18-22 132-183/74-101 94-97 - Lab 08/06/16 04:49 08/06/16 04:49 Most recent lab results Calcium 9.0 MG/DL (8.5-10.1) 08/06/16 04:49 Phosphorus 4.5 MG/DL (2.5-4.9) 08/05/16 03:24 Magnesium 2.8 MG/DL (1.8-2.4) H 08/06/16 04:49
--- NOTE | 2016-08-06 11:43 | Hospitalist Progress Note ---
Assessment and Plan (1) Acute on chronic diastolic (congestive) heart failure Status: Acute Current Visit: Yes (2) GEOVANNI (acute kidney injury) Status: Acute Current Visit: Yes (3) Hypertensive emergency Status: Acute Current Visit: Yes (4) Diabetes Status: Acute Current Visit: Yes Qualifiers: Diabetes mellitus type: type 2 Diabetes mellitus complication status: with kidney complications Diabetes mellitus complication detail: with chronic kidney disease Diabetes mellitus medical terminologist insulin use: with medical terminologist use Chronic kidney disease stage: stage 4 (severe) Qualified Code(s): E11.22 - Type 2 diabetes mellitus with diabetic chronic kidney disease; N18.4 - Chronic kidney disease, stage 4 (severe); Z79.4 - intermodal owner operator truck driver (current) use of insulin (5) Hypertension Status: Chronic Current Visit: Yes (6) Noncompliance Status: Chronic Assessment and plan: -Cardiology following, diuresis with Lasix has been increased to 120 mg IV daily -Patient improving; reports less shortness of breath today -Continue current blood pressure medicines with hydralazine, isosorbide, labetalol, Procardia -Blood count increased following blood transfusion, hematocrit currently 31.7 -Creatinine decreased slightly overnight; nephrology consulted, will continue follow the recommendation -Continue to monitor kidney function tests closely Current Visit: Yes Hospitalist: Subjective Interval history: The patient is a 45-year-old female admitted to the hospital with acute on chronic diastolic congestive heart failure associated with hypertensive emergency. The patient reports improvement of her shortness of breath today. She status post transfusion of 2 units of packed red blood cells. She states her dizziness has improved as a result of the blood transfusion. Exam - Constitutional Vitals: Period Temp Pulse Resp BP Sys/Florez Pulse Ox Last 24 Hr 97.9 F-98.6 F 81-89 18-22 132-183/74-101 94-97 General appearance: morbidly obese - Head Head exam: Present: normal inspection - Eye Eye exam: Present: EOMI Pupils: Present: SOLIS - ENT ENT exam: Present: normal exam - Neck Neck exam: Present: normal inspection - Respiratory Respiratory exam: Present: decreased breath sounds, other (Tachypnea, decreased breath sounds in lower lobes bilaterally) - Cardiovascular Cardiovascular exam: Present: regular rate and rhythm. Absent: diastolic murmur , tachycardia - GI/Abdominal GI/Abdominal exam: Present: normal bowel sounds - Extremities Exam Extremities exam: Present: edema, other (2+ pitting edema bilaterally) - Neurological Exam Neurological exam: Present: alert, oriented X3 - Psychiatric Psychiatric exam: Present: normal affect - Skin Skin exam: Present: normal color Results - Labs CBC & BMP: 08/06/16 04:49 08/06/16 04:49 Lab Results: I have reviewed the past 24 hour labs
[2016-08-06] MEDS ORDERED: hydrALAZINE 20 MG/1 ML VIAL IV PRN (19:58)
[2016-08-06] MEDS: BISACODYL 5 MG TABLET PO SCH (22:09)
[2016-08-06] MEDS: INSULIN GLARGINE 100 UNIT/ML SUBCUT SCH (22:09)
[2016-08-07] MEDS: HEPARIN 5,000 UNIT/1 ML VIAL SUBCUT SCH ×3 (03:18→17:16)
[2016-08-07 05:15] LABS: Basophils # 0.1 10*3/uL (0.0-0.2); Basophils % 0.6 % (0.0-0.8); Eosinophils # 0.4 10*3/uL (0.0-0.87); Eosinophils % 3.7 % (0.00-10.9); Hematocrit 30.1 VOL% (35.7-47.0); Hemoglobin 9.8 GM/DL (12.0-16.0); Immature Granulocytes % 0.5 %; Immature Granulocytes Absolute 0.06 #; Lymphocytes # 1.6 10*3/uL (1.4-4.0); Lymphocytes % 14.1 % (21.3-54.2); Mean Corpuscular HGB Conc 32.6 GM/DL (32-36); Mean Corpuscular Hemoglobin 28 PG (27-34); Mean Corpuscular Volume 85.3 FL (87-102); Mean Platelet Volume 12.1 FL (9.6-12.0); Monocytes # 1.1 10*3/uL (0.11-0.8); Monocytes % 9.2 % (1.7-12.7); Neutrophils # 8.3 10*3/uL (1.4-7.4); Neutrophils % 71.9 % (38.7-73.9); Platelet Count 338 T/CUMM (130-400); Red Blood Count 3.53 MC/CUMM (3.8-5.5); Red Cell Distribution Width 15.4 % (9.3-17.3); White Blood Count 11.5 T/CUMM (4-12)
[2016-08-07 05:52] LABS: Calcium 8.7 MG/DL (8.5-10.1); Magnesium 2.5 MG/DL (1.8-2.4); Osmolality,Calculated 292.4 MOS/KG (273-304)
[2016-08-07] MEDS ORDERED: FUROSEMIDE 40 MG/4 ML VIAL IV SCH ×2 (09:00→14:18)
[2016-08-07] MEDS: INSULIN LISPRO 100 UNIT/ML SUBCUT SCH ×4 (09:05→21:03)
[2016-08-07] MEDS: ASPIRIN EC 81 MG TABLET PO SCH (09:06)
[2016-08-07] MEDS: ISOSORBIDE MONONITRATE 30 MG TABLET PO SCH (09:06)
[2016-08-07] MEDS: LABETALOL 200 MG TABLET PO SCH ×2 (09:06→21:03)
[2016-08-07] MEDS: POLYETHYLENE GLYCOL POWDER 17 GM PACK PO SCH (09:12)
--- NOTE | 2016-08-07 10:21 | Hospitalist Progress Note ---
Assessment and Plan - Time spent with patient Time spent with patient: Less than 30 minutes (1) Hypertensive emergency Status: Acute Current Visit: Yes (2) Acute on chronic diastolic (congestive) heart failure Status: Acute Assessment and plan: 45AAF w history of HTN, DM, CKD admitted by hospitalist w acute on chronic CHF w elevated troponin, CP, and acute kidney injury. cardiology and nephrology are following. dr coy to see and examine pt and further recs to follow. sob/chf/htn--pts BP and HR are now well controlled. cont imdur, hydralazine, nifedipine, and labetolol. she is also on IV lasix for her edema which was increased yesterday. will need to watch her renal function with this. she did receive 2 units of blood this admission and HH is stable. she is requiring oxygen at 3L NC now. she is not on home O2. cardiology is following. DM--blood sugars are well controlled. on her home insulin and SSI. GEOVANNI--creatinine is stable at 4.7. lasix was increased so cont to monitor. nephrology is following. Current Visit: Yes (3) GEOVANNI (acute kidney injury) Status: Acute Current Visit: Yes (4) Diabetes Status: Acute Current Visit: Yes Qualifiers: Diabetes mellitus type: type 2 Diabetes mellitus complication status: with kidney complications Diabetes mellitus complication detail: with chronic kidney disease Diabetes mellitus assisted insulin use: with termination clerk use Chronic kidney disease stage: stage 4 (severe) Qualified Code(s): E11.22 - Type 2 diabetes mellitus with diabetic chronic kidney disease; N18.4 - Chronic kidney disease, stage 4 (severe); Z79.4 - prison (current) use of insulin (5) Noncompliance Status: Chronic Current Visit: Yes Hospitalist: Subjective Interval history: pt feels a little better today. she is eating and drinking well. she has no complaints of SOB unless she is ambulating. no complaints of dizziness or CP. Exam - Constitutional Vitals: Period Temp Pulse Resp BP Sys/Florez Pulse Ox Last 24 Hr 97.4 F-98.5 F 82-91 20-20 136-200/77-101 92-98 Exam: 45AAF, NAD, alert and oriented chest clear cv rrr abd soft, nt ext moderate edema Results - Labs CBC & BMP: 08/07/16 04:21 08/07/16 04:21 Lab Results: I have reviewed the past 24 hour labs
--- NOTE | 2016-08-07 13:04 | Cardiology Progress Note ---
Assessment and Plan - Time spent with patient Time spent with patient: Less than 30 minutes (1) Pulmonary edema Status: Acute Current Visit: Yes (2) Hypertensive emergency Status: Acute Current Visit: Yes (3) Chronic kidney disease, stage III (moderate) Status: Chronic Current Visit: Yes (4) Noncompliance Status: Chronic Current Visit: Yes (5) Uncontrolled diabetes mellitus Status: Chronic Current Visit: Yes Cardiology - PN: Subj Interval history: Ms. Marisa denise 45-year-old female came in with hypertensive emergency she has a normal ejection fraction. Her blood pressures been better controlled and she feels much better. She has renal insufficiency from over diuresis. She states that she had had her medicine for some time prior to coming into the hospital. I expressed to her the importance of taking her medications and maintaining a low-salt diet and keeping good eye on her blood pressure at home. She is followed at [facility]. I have nothing further to add at this time I will sign off. The patient denies any chest pain or shortness of breath. Her physical exam is quite good. Exam (Progress Note) - Constitutional Vitals: Period Temp Pulse Resp BP Sys/Florez Pulse Ox Last 24 Hr 97.4 F-98.5 F 80-91 20-20 136-200/77-101 91-98 General appearance: morbidly obese - Head Head exam: Present: normal inspection - Eye Eye exam: Present: EOMI Pupils: Present: SOLIS - Respiratory Respiratory exam: Present: clear to auscultation bilaterally - Cardiovascular Cardiovascular exam: Present: regular rate and rhythm (She has an S4 gallop) - GI/Abdominal GI/Abdominal exam: Present: normal bowel sounds - Back Exam Back exam: Present: normal inspection - Neurological Exam Neurological exam: Present: other (She is somewhat somnolent but arousable. She moves all extremities on command) - Psychiatric Psychiatric exam: Present: normal affect, depressed - Skin Skin exam: Present: normal color, warm, dry Result/EKG - Labs CBC & BMP: 08/07/16 04:21 08/07/16 04:21 Labs: Laboratory Results - last 24 hr 08/06/16 08/06/16 08/07/16 16:18 20:45 04:21 WBC 11.5 RBC 3.53 L Hgb 9.8 L Hct 30.1 L MCV 85.3 L MCH 28 MCHC 32.6 RDW 15.4 Plt Count 338 MPV 12.1 H Neut % (Auto) 71.9 Lymph % (Auto) 14.1 L Banks % (Auto) 9.2 Eos % (Auto) 3.7 Baso % (Auto) 0.6 Neut # (Auto) 8.3 H Lymph # (Auto) 1.6 Banks # (Auto) 1.1 H Eos # (Auto) 0.4 Baso # (Auto) 0.1 Immature Gran % 0.5 Nucleated RBC % 0.0 Immature Gran # 0.06 Nucleated RBCs # 0.00 Sodium Potassium Chloride Carbon Dioxide Anion Gap BUN Creatinine GFR Calculation BUN/Creatinine Ratio Glucose POC Glucose 92 153 H Calculated Osmolality Calcium Magnesium 08/07/16 08/07/16 08/07/16 04:21 08:00 11:34 WBC RBC Hgb Hct MCV MCH MCHC RDW Plt Count MPV Neut % (Auto) Lymph % (Auto) Banks % (Auto) Eos % (Auto) Baso % (Auto) Neut # (Auto) Lymph # (Auto) Banks # (Auto) Eos # (Auto) Baso # (Auto) Immature Gran % Nucleated RBC % Immature Gran # Nucleated RBCs # Sodium 140 Potassium 5.0 Chloride 109 H Carbon Dioxide 20 L Anion Gap 16.0 H BUN 46 H Creatinine 4.70 H GFR Calculation 15 BUN/Creatinine Ratio 9.00 Glucose 142 H POC Glucose 110 H 182 H Calculated Osmolality 292.4 Calcium 8.7 Magnesium 2.5 H
--- NOTE | 2016-08-07 14:19 | Nephrology Progress Note ---
Nephrology - PN: Subj Interval history: Ms. Hewitt is seen in follow-up of her edema with chronic renal impairment. Her creatinine today is stable at 4.7 and she is not losing weight per our measurement but her edema seems to be improved. She notices an increase amount of urine with the diuretics. We are going to increase the Lasix to 160 mg IV daily in order to help her get rid of more of her significant edema. The diuresis does not seem to be decreasing renal perfusion yet. Exam (PN)-Nephrology - Vital Signs Vital signs: Period Temp Pulse Resp BP Sys/Florez Pulse Ox Last 24 Hr 97.4 F-98.5 F 80-91 20-20 136-200/77-101 91-98 - Lab 08/07/16 04:21 08/07/16 04:21 Most recent lab results Calcium 8.7 MG/DL (8.5-10.1) 08/07/16 04:21 Phosphorus 4.5 MG/DL (2.5-4.9) 08/05/16 03:24 Magnesium 2.5 MG/DL (1.8-2.4) H 08/07/16 04:21
[2016-08-07] MEDS: BISACODYL 5 MG TABLET PO SCH (21:05)
[2016-08-07] MEDS: INSULIN GLARGINE 100 UNIT/ML SUBCUT SCH (21:05)
[2016-08-08] MEDS: HEPARIN 5,000 UNIT/1 ML VIAL SUBCUT SCH ×2 (01:38→09:42)
[2016-08-08] MEDS: INSULIN LISPRO 100 UNIT/ML SUBCUT SCH ×2 (09:32→12:39)
[2016-08-08] MEDS: ISOSORBIDE MONONITRATE 30 MG TABLET PO SCH (09:32)
[2016-08-08] MEDS: ASPIRIN EC 81 MG TABLET PO SCH (09:33)
[2016-08-08] MEDS: LABETALOL 200 MG TABLET PO SCH (09:33)
[2016-08-08] MEDS: POLYETHYLENE GLYCOL POWDER 17 GM PACK PO SCH (09:42)
[2016-08-08 09:43] LABS: Calcium 8.6 MG/DL (8.5-10.1); Magnesium 2.5 MG/DL (1.8-2.4); Osmolality,Calculated 290.7 MOS/KG (273-304); Potassium 4.8 MMOL/L (3.5-5.1)
--- NOTE | 2016-08-08 10:20 | Hospitalist Progress Note ---
Assessment and Plan - Time spent with patient Time spent with patient: Less than 30 minutes (1) Hypertensive emergency Status: Acute Current Visit: Yes (2) Acute on chronic diastolic (congestive) heart failure Status: Acute Assessment and plan: 45AAF w history of HTN, DM, CKD admitted by hospitalist w acute on chronic CHF w elevated troponin, CP, and acute kidney injury. cardiology and nephrology are following. dr everett to see and examine pt and further recs to follow. sob/chf/htn--pts BP and HR are now well controlled. cont imdur, hydralazine, nifedipine, and labetolol. she is also on IV lasix for her edema which was increased yesterday. will need to watch her renal function with this. she did receive 2 units of blood this admission and HH is stable. she is requiring oxygen at 3L NC now. she is not on home O2. cardiology is following. DM--blood sugars are well controlled. on her home insulin and SSI. GEOVANNI--creatinine is stable at 4.7. lasix was increased so cont to monitor. nephrology is following. 08/08/2016 patient is feeling much better. Her blood pressure and heart rate are well controlled on Imdur, hydralazine, nifedipine, and labetalol. Cardiology has signed off. Patient's creatinine is stable at 4.7. Dr. Leonard increased her IV Lasix [address] Carlos will see patient today. Patient 's lower extremity edema is down to +1 now which is much improved from admission. We will need to switch her over to p.o. Lasix but will let Dr. Carlos handle this. Patient's diabetes is under control on her home insulin and sliding scale. Hope for discharge today if okay with Dr. Carlos. Dr. Everett to see and examined patient and further recommendations to follow. Current Visit: Yes (3) GEOVANNI (acute kidney injury) Status: Acute Current Visit: Yes (4) Diabetes Status: Acute Current Visit: Yes Qualifiers: Diabetes mellitus type: type 2 Diabetes mellitus complication status: with kidney complications Diabetes mellitus complication detail: with chronic kidney disease Diabetes mellitus assisted insulin use: with assisted use Chronic kidney disease stage: stage 4 (severe) Qualified Code(s): E11.22 - Type 2 diabetes mellitus with diabetic chronic kidney disease; N18.4 - Chronic kidney disease, stage 4 (severe); Z79.4 - assisted (current) use of insulin (5) Noncompliance Status: Chronic Current Visit: Yes Hospitalist: Subjective Interval history: Patient feels a little better today. She has no complaints of shortness of breath or chest pain. Her ankle edema is much improved. She feels like she is ready for discharge home Exam - Constitutional Vitals: Period Temp Pulse Resp BP Sys/Florez Pulse Ox Last 24 Hr 97.7 F-98.5 F 80-87 18-22 137-148/75-82 91-97 Exam: 45AAF, NAD, alert and oriented chest clear cv rrr abd soft, nt ext moderate edema Results - Labs CBC & BMP: 08/07/16 04:21 08/08/16 09:03 Lab Results: I have reviewed the past 24 hour labs
[2016-08-08 11:50] VITALS: BP 151/89
--- NOTE | 2016-08-08 11:56 | Discharge Summary ---
Hospital Course - Hospital Course Hospital Course: The patient was admitted to the hospital with nephrotic syndrome, hypertensive emergency, and acute on chronic renal failure stage IV. We had to hold diuretics initially. The blood pressure was controlled. Diuretics were restarted and the patient's edema began to improve. Creatinine was stable at 4.6. The patient has reached maximum medical benefit is now ready for discharge home. Dr. Carlos was seeing her in the hospital and he suggested that the patient follow-up with him are with her securities dealer in [place]. On the date of discharge, chest is clear, heart has regular rate and rhythm, and abdomen soft. She has 1+ edema of lower extremities due to nephrotic syndrome. Time required for education of the patient, coordination with Dr. Carlos, and preparation of discharge documents required 38 minutes. - Time spent with patient Time with patient DS: Greater than 30 minutes Diagnosis - Discharge Diagnosis (1) Pulmonary edema Status: Resolved (2) Hypertensive emergency Status: Resolved (3) Acute on chronic diastolic (congestive) heart failure Status: Resolved (4) Chronic kidney disease, stage III (moderate) Status: Chronic Discharge Plan - Discharge Data Disposition: Disch To Home/Self Care Condition at Discharge: Stable Discharge Diet: advance to your usual diet Activity: resume usual activities as tolerated Hygiene: no restrictions - Discharge Medications New Furosemide Tab [Lasix Tab] 160 mg PO DAILY #100 tablet Isosorbide Mononitrate [Imdur] 60 mg PO DAILY #100 tablet Labetalol Tab [Trandate Tab] 400 mg PO BID #120 tablet hydrALAZINE TAB [Apresoline Tab] 100 mg PO TID #120 tablet Continue NIFEdipine [Nifedipine ER] 90 mg PO DAILY Insulin Detemir [Levemir] 20 unit SUBCUT BEDTIME Aspirin [Lo-Dose Aspirin EC] 81 mg PO DAILY Discontinued Metoprolol Tartrate 50 mg PO BID Furosemide Tab [Lasix Tab] 80 mg PO BID DIURETIC hydrALAZINE TAB [Apresoline Tab] 50 mg PO TID - Follow Up or Referral - Forms/Instructions Exam - Constitutional Vitals: Period Temp Pulse Resp BP Sys/Florez Pulse Ox Last 24 Hr 97.7 F-98.5 F 80-87 18-22 137-151/75-89 90-97 Discharge Results Procedures and tests throughout hospitalization: Pending Orders 08/04/16 18:58 Occult Blood, Stool Stat 08/05/16 Occult Blood, Stool Stat Labs on day of discharge: Labs from last 24 hours 08/08/16 08/08/16 08/08/16 11:34 09:03 07:13 Sodium 138 Potassium 4.8 Chloride 107 Carbon Dioxide 22 Anion Gap 13.8 BUN 48 H Creatinine 4.70 H GFR Calculation 15 BUN/Creatinine Ratio 10.00 Glucose 144 H POC Glucose 151 H 108 H Calculated Osmolality 290.7 Calcium 8.6 Magnesium 2.5 H 08/07/16 08/07/16 20:56 15:55 Sodium Potassium Chloride Carbon Dioxide Anion Gap BUN Creatinine GFR Calculation BUN/Creatinine Ratio Glucose POC Glucose 160 H 112 H Calculated Osmolality Calcium Magnesium DS: Provider Date of admission: 07/29/16 01:17 Primary care physician: . No PCP Attending physician on admission: Nixon Pollack MD Consults: 07/29/16 08:25 Consult to Physician [CONS] Routine Comment: Consulting Provider: Cardiology - [facility] 07/30/16 08:08 Consult to Physician [CONS] Routine Comment: chronic renal failure Consulting Provider: Dante Carlos 08/04/16 17:35 Consult to Case Mgmt/Social Srvs [CONS] Routine Reason for Case Mgmt/Social Srvs: Discharge Planning Consult Comment: help with insurance/affording meds at discharge Discharging clinician: Torey Everett MD
--- NOTE | 2016-08-08 12:16 | Nephrology Progress Note ---
Nephrology - PN: Subj Interval history: She denies shortness of breath today. No chest pain Exam (PN)-Nephrology - Vital Signs Vital signs: Period Temp Pulse Resp BP Sys/Florez Pulse Ox Last 24 Hr 97.7 F-98.5 F 80-87 18-22 137-151/75-89 90-97 Exam: ENT: Normal Cardiovascular: Regular rate and rhythm. No murmur rub or gallop Lungs: Clear Extremities: 1-2+ edema - Lab 08/07/16 04:21 08/08/16 09:03 Most recent lab results Calcium 8.6 MG/DL (8.5-10.1) 08/08/16 09:03 Phosphorus 4.5 MG/DL (2.5-4.9) 08/05/16 03:24 Magnesium 2.5 MG/DL (1.8-2.4) H 08/08/16 09:03 Assessment and Plan (1) Chronic kidney disease, stage III (moderate) Status: Chronic Assessment and plan: 45-year-old woman admitted with: * Hypertensive urgency. Blood pressure controlled * CRF stage III. Creatinine justen with diuresis, then stabilized. I agree with plans for discharge. She has been followed by a front end drupal developer in [place]. She may follow-up with him or with me if she chooses * Proteinuria. Serum albumin 2.5. She is clinically nephrotic * CHF, diastolic. Improved. Current Visit: Yes (2) Acute on chronic diastolic (congestive) heart failure Status: Resolved Current Visit: Yes (3) Diabetes Status: Acute Current Visit: Yes Qualifiers: Diabetes mellitus type: type 2 Diabetes mellitus complication status: with kidney complications Diabetes mellitus complication detail: with chronic kidney disease Diabetes mellitus local company intermodal truck driver insulin use: with local company intermodal truck driver use Chronic kidney disease stage: stage 4 (severe) Qualified Code(s): E11.22 - Type 2 diabetes mellitus with diabetic chronic kidney disease; N18.4 - Chronic kidney disease, stage 4 (severe); Z79.4 - buttermaker continuous churn (current) use of insulin (4) Elevated troponin Status: Acute Current Visit: Yes (5) Hypertensive crisis Status: Acute Current Visit: Yes (6) Proteinuria Status: Acute Current Visit: Yes
--- NOTE | 2016-08-09 07:47 | Physician Query Form ---
CLICK EDIT DOCUMENT TO SELECT QUERY ANSWER --> OK --> SIGN Amy Tate RN Clinical Meter/Relay Craftsman W) [phone] (f) [phone] [email or web address] PROVIDERS: Make your selection(s) from the choices in EACH section by typing an "x" and enter comments in the comment section. Please use your independent medical judgment in providing your response. This request does not imply that any particular answer is desired or expected. CLINICAL INDICATORS: (Providers should not edit this section) Based on documentation of "Acute kidney injury" "End stage renal disease" "CKD stage 4" history of CKD stage3. Creatinine up to 4.9. GFR of 14. No documentation of dialysis. Treated with holding diuretics. Monitored with serial lab checks. Please clarify for renal status and stage. Clarify which of the following most accurately represents the patient's renal status: ( X) Acute kidney injury (non-traumatic) ( ) Acute renal failure ( ) Acute renal failure with underlying Chronic Kidney Disease (CKD) - please provide stage below ( ) Acute renal failure with pathological renal lesion ( ) Acute renal failure with necrosis ( ) tubular ( ) medullary ( ) cortical ( ) CKD - please provide stage below ( ) End Stage Renal Disease ( ) Acute interstitial nephritis ( ) Hepatorenal syndrome ( ) Other, please specify: ( ) Clinically unable to determine Chronic Kidney Disease Stages Source: National Kidney Disease Foundation ( ) Stage I (eGFR > or = 90) ( ) Stage II (eGFR 60 - 89) ( ) Stage III (eGFR 30 - 59) ( ) Stage IV (eGFR 15 - 29) ( ) Stage V (eGFR < 15 or dialysis) COMMENTS: PLEASE ALSO DOCUMENT RESPONSE IN PROGRESS NOTES AND/OR DISCHARGE SUMMARY Use of terms such as suspected, likely, or probable (associated with a specific diagnosis that is being evaluated, monitored, or treated as if it exists) are acceptable and can be restated in the discharge summary if not ruled out. MTDD
== END 2016-08-08 13:52 | disposition home or self-care (01) | DRG 304 ==
LOC: N.ED 23:28 → N.EDINP 07-29 01:17 → SUATTDRO 07-29 01:17 → N.CC 07-29 01:39 → N.TELES 07-30 11:02
PROVIDERS: ADMIT Student in an Organized Health Care Education/Training Program; ATTEND Internal Medicine

== ENCOUNTER 2017-12-23 15:28 | Inpatient (IN) ==
[2017-12-23 16:31] LABS: Basophils # 0.1 10*3/uL (0.0-0.2); Basophils % 0.4 % (0.0-0.8); Eosinophils # 0.1 10*3/uL (0.0-0.87); Eosinophils % 0.7 % (0.00-10.9); Hematocrit 29.8 VOL% (35.7-47.0); Hemoglobin 9.5 GM/DL (12.0-16.0); Immature Granulocytes % 0.9 %; Immature Granulocytes Absolute 0.14 #; Mean Corpuscular HGB Conc 31.9 GM/DL (32-36); Mean Corpuscular Hemoglobin 27 PG (27-34); Mean Corpuscular Volume 84.9 FL (87-102); Mean Platelet Volume 11.4 FL (9.6-12.0); Monocytes # 1.2 10*3/uL (0.11-0.8); Monocytes % 7.3 % (1.7-12.7); Neutrophils # 13.8 10*3/uL (1.4-7.4); Neutrophils % 84.7 % (38.7-73.9); Platelet Count 335 T/CUMM (130-400); Red Blood Count 3.51 MC/CUMM (3.8-5.5); Red Cell Distribution Width 16.8 % (9.3-17.3); White Blood Count 16.3 T/CUMM (4-12)
[2017-12-23 16:58] LABS: CKMB % 0.6 %; Troponin I 0.057 NG/ML (0.00-0.045)
[2017-12-23 17:02] LABS: Apearance,Urine CLEAR (Clear); Bilirubin,Urine Negative (Negative); Blood, Urine Small mg/dL (Negative); Glucose,Urine (UA) 150 mg/dL (Negative); Ketones,Urine Negative (Negative); Mucus,Urine Occasional /LPF (Occasional); Nitrite,Urine Negative (Negative); Protein,Urine >=500 MG/DL; RBC,Urine 9 /HPF (0-4); Squamous Epithelial Cell,Urine Occasional /HPF (0-10); Urine Color Yellow (Yellow); Urine Urobilinogen < 2.0 EU/DL (0.2-1.0); WBC,Urine 5 /HPF (0-6)
[2017-12-23 17:06] LABS: Albumin 2.4 G/DL (3.4-5.0); Bilirubin,Total 0.7 MG/DL (0.2-1.0); Osmolality,Calculated 301.7 MOS/KG (273-304); Potassium 4.6 MMOL/L (3.5-5.1); Total Protein 7.1 G/DL (6.4-8.3)
[2017-12-23 17:20] LABS: PT Patient Result 10.5 SECS; Partial Thromboplastin Time 27.3 SECS (0-40)
[2017-12-23] MEDS ORDERED: cefTRIAXone 1,000 MG in SODIUM CHLORIDE 0.9% 100 ML IV STA (17:21)
[2017-12-23] MEDS ORDERED: hydrALAZINE 20 MG/1 ML VIAL IV STA (17:21)
[2017-12-23] MEDS ORDERED: niCARdipine 25 MG/10 ML VIAL IV ONE (20:36)
[2017-12-23] MEDS ORDERED: GLUCAGON 1 MG VIAL IM PRN ×2 (20:48)
[2017-12-23] MEDS ORDERED: ONDANSETRON 4 MG/2 ML VIAL IV PRN (20:48)
[2017-12-23] MEDS ORDERED: ACETAMINOPHEN 325 MG TABLET PO PRN (20:48)
[2017-12-23] MEDS ORDERED: DEXTROSE 50% 25 GM/50 ML VIAL IV PRN ×2 (20:48)
[2017-12-23] MEDS: niCARdipine INJ 25 MG in SODIUM CHLORIDE 0.9% 240 ML IV PRN (20:50)
[2017-12-23] MEDS ORDERED: ALUM/MAG/SIMETH/LIDO VISC 1:1 30 ML BOTTLE PO STA (20:57)
[2017-12-23] MEDS: INSULIN REGULAR 100 UNIT/ML SUBCUT SCH (22:06)
[2017-12-23] MEDS: ONDANSETRON 4 MG/2 ML VIAL IV SCH (22:07)
[2017-12-23] MEDS: FUROSEMIDE 40 MG/4 ML VIAL IV SCH (22:34)
[2017-12-23] MEDS: ACETAMINOPHEN 325 MG TABLET PO SCH ×2 (22:34→23:55)
[2017-12-23 22:35] LABS: CKMB % 0.6 %
[2017-12-23] MEDS: MORPHINE 4 MG/1 ML VIAL IV SCH ×2 (22:35→23:55)
[2017-12-23] MEDS: ENOXAPARIN 30 MG/0.3 ML SYRINGE SUBCUT SCH (22:35)
[2017-12-23 22:36] LABS: Troponin I 0.067 NG/ML (0.00-0.045)
[2017-12-24] MEDS: ALBUTEROL/IPRATROPIUM 3 ML NEB RESP TX SCH ×4 (01:28→19:25)
[2017-12-24] MEDS: ONDANSETRON 4 MG/2 ML VIAL IV SCH ×4 (01:52→22:06)
[2017-12-24 04:17] LABS: Basophils # 0.1 10*3/uL (0.0-0.2); Basophils % 0.6 % (0.0-0.8); Eosinophils # 0.3 10*3/uL (0.0-0.87); Eosinophils % 1.8 % (0.00-10.9); Hematocrit 29.9 VOL% (35.7-47.0); Hemoglobin 9.2 GM/DL (12.0-16.0); Immature Granulocytes % 0.5 %; Immature Granulocytes Absolute 0.07 #; Lymphocytes # 1.3 10*3/uL (1.4-4.0); Lymphocytes % 8.4 % (21.3-54.2); Mean Corpuscular HGB Conc 30.8 GM/DL (32-36); Mean Corpuscular Hemoglobin 26 PG (27-34); Mean Corpuscular Volume 85.7 FL (87-102); Mean Platelet Volume 11.7 FL (9.6-12.0); Monocytes # 1.4 10*3/uL (0.11-0.8); Neutrophils # 12.3 10*3/uL (1.4-7.4); Neutrophils % 79.7 % (38.7-73.9); Platelet Count 356 T/CUMM (130-400); Red Blood Count 3.49 MC/CUMM (3.8-5.5); Red Cell Distribution Width 16.8 % (9.3-17.3); White Blood Count 15.4 T/CUMM (4-12)
[2017-12-24] MEDS: MORPHINE 4 MG/1 ML VIAL IV SCH ×5 (04:28→22:05)
[2017-12-24] MEDS: ACETAMINOPHEN 325 MG TABLET PO SCH ×5 (04:28→22:05)
[2017-12-24 04:41] LABS: CKMB % 0.6 %
[2017-12-24 04:41] LABS: Albumin 2.3 G/DL (3.4-5.0); Bilirubin,Total 0.5 MG/DL (0.2-1.0); Calcium 8.2 MG/DL (8.5-10.1); Osmolality,Calculated 304.4 MOS/KG (273-304); Potassium 3.7 MMOL/L (3.5-5.1); Risk Ratio 2.93; Total Protein 6.9 G/DL (6.4-8.3); VLDL CHOLESTEROL 17.4 MG/DL
[2017-12-24 04:43] LABS: Troponin I 0.052 NG/ML (0.00-0.045)
[2017-12-24] MEDS: INSULIN REGULAR 100 UNIT/ML SUBCUT SCH ×4 (08:19→22:06)
[2017-12-24] MEDS: niCARdipine INJ 25 MG in SODIUM CHLORIDE 0.9% 240 ML IV PRN (08:24)
[2017-12-24] MEDS: ASPIRIN EC 81 MG TABLET PO SCH (08:36)
[2017-12-24] MEDS: PANTOPRAZOLE 40 MG TABLET PO SCH (08:37)
[2017-12-24] MEDS: CALCITRIOL 0.25 MCG CAPSULE PO SCH (08:37)
[2017-12-24] MEDS: FUROSEMIDE 40 MG/4 ML VIAL IV SCH ×2 (08:41→15:53)
[2017-12-24] MEDS: AZITHROMYCIN INJ 500 MG in SODIUM CHLORIDE 0.9% 250 ML IV SCH (08:49)
[2017-12-24] MEDS: LABETALOL 200 MG TABLET PO SCH ×2 (09:58→21:09)
[2017-12-24] MEDS: ISOSORBIDE MONONITRATE 30 MG TABLET PO SCH (09:59)
[2017-12-24] MEDS: INSULIN GLARGINE 100 UNIT/ML SUBCUT SCH (21:10)
[2017-12-24] MEDS: ENOXAPARIN 30 MG/0.3 ML SYRINGE SUBCUT SCH (21:11)
[2017-12-24] MEDS: cefTRIAXone 1,000 MG in SYRINGE 1 EACH IV SCH (21:13)
[2017-12-25] MEDS: ALBUTEROL/IPRATROPIUM 3 ML NEB RESP TX SCH ×4 (00:54→19:03)
[2017-12-25] MEDS: MORPHINE 4 MG/1 ML VIAL IV SCH ×6 (01:46→21:37)
[2017-12-25] MEDS: ACETAMINOPHEN 325 MG TABLET PO SCH ×6 (01:46→21:37)
[2017-12-25] MEDS: ONDANSETRON 4 MG/2 ML VIAL IV SCH ×4 (03:43→21:37)
[2017-12-25 05:48] LABS: Basophils # 0.1 10*3/uL (0.0-0.2); Basophils % 0.5 % (0.0-0.8); Eosinophils # 0.5 10*3/uL (0.0-0.87); Eosinophils % 3.7 % (0.00-10.9); Hematocrit 30.9 VOL% (35.7-47.0); Hemoglobin 9.5 GM/DL (12.0-16.0); Immature Granulocytes % 0.5 %; Immature Granulocytes Absolute 0.07 #; Lymphocytes # 1.3 10*3/uL (1.4-4.0); Lymphocytes % 9.3 % (21.3-54.2); Mean Corpuscular HGB Conc 30.7 GM/DL (32-36); Mean Corpuscular Hemoglobin 27 PG (27-34); Mean Platelet Volume 11.3 FL (9.6-12.0); Monocytes # 1.2 10*3/uL (0.11-0.8); Monocytes % 9.1 % (1.7-12.7); Neutrophils # 10.3 10*3/uL (1.4-7.4); Neutrophils % 76.9 % (38.7-73.9); Platelet Count 372 T/CUMM (130-400); Red Blood Count 3.55 MC/CUMM (3.8-5.5); Red Cell Distribution Width 16.8 % (9.3-17.3); White Blood Count 13.4 T/CUMM (4-12)
[2017-12-25 06:09] LABS: Calcium 7.9 MG/DL (8.5-10.1); Osmolality,Calculated 302.4 MOS/KG (273-304); Potassium 3.8 MMOL/L (3.5-5.1)
[2017-12-25] MEDS: INSULIN REGULAR 100 UNIT/ML SUBCUT SCH ×4 (08:57→21:27)
[2017-12-25] MEDS ORDERED: cloNIDine 0.1 MG TABLET PO SCH (09:00)
[2017-12-25] MEDS: LABETALOL 200 MG TABLET PO SCH ×2 (09:15→21:37)
[2017-12-25] MEDS: PANTOPRAZOLE 40 MG TABLET PO SCH (09:16)
[2017-12-25] MEDS: ISOSORBIDE MONONITRATE 30 MG TABLET PO SCH (09:17)
[2017-12-25] MEDS: CALCITRIOL 0.25 MCG CAPSULE PO SCH (09:17)
[2017-12-25] MEDS: ASPIRIN EC 81 MG TABLET PO SCH (09:18)
[2017-12-25] MEDS: FUROSEMIDE 40 MG/4 ML VIAL IV SCH (09:20)
[2017-12-25] MEDS: AZITHROMYCIN INJ 500 MG in SODIUM CHLORIDE 0.9% 250 ML IV SCH (10:12)
[2017-12-25] MEDS: INSULIN GLARGINE 100 UNIT/ML SUBCUT SCH (21:26)
[2017-12-25] MEDS: cefTRIAXone 1,000 MG in SYRINGE 1 EACH IV SCH (21:28)
[2017-12-25] MEDS: ENOXAPARIN 30 MG/0.3 ML SYRINGE SUBCUT SCH (21:33)
[2017-12-26] MEDS: ALBUTEROL/IPRATROPIUM 3 ML NEB RESP TX SCH ×4 (00:45→19:34)
[2017-12-26] MEDS: ACETAMINOPHEN 325 MG TABLET PO SCH ×7 (01:18→23:59)
[2017-12-26] MEDS: MORPHINE 4 MG/1 ML VIAL IV SCH ×7 (01:18→23:59)
[2017-12-26] MEDS: ONDANSETRON 4 MG/2 ML VIAL IV SCH ×4 (03:49→21:19)
[2017-12-26 07:09] LABS: Calcium 8.2 MG/DL (8.5-10.1); Osmolality,Calculated 300.4 MOS/KG (273-304); Potassium 3.3 MMOL/L (3.5-5.1)
[2017-12-26] MEDS ORDERED: MAGNESIUM HYDROXIDE SUSP 30 ML UDCUP PO PRN (09:16)
[2017-12-26] MEDS: ISOSORBIDE MONONITRATE 30 MG TABLET PO SCH (09:58)
[2017-12-26] MEDS: LABETALOL 200 MG TABLET PO SCH ×2 (09:58→21:20)
[2017-12-26] MEDS: CALCITRIOL 0.25 MCG CAPSULE PO SCH (09:59)
[2017-12-26] MEDS: AZITHROMYCIN INJ 500 MG in SODIUM CHLORIDE 0.9% 250 ML IV SCH (09:59)
[2017-12-26] MEDS: ASPIRIN EC 81 MG TABLET PO SCH (09:59)
[2017-12-26] MEDS: PANTOPRAZOLE 40 MG TABLET PO SCH (09:59)
[2017-12-26] MEDS ORDERED: POTASSIUM CHLORIDE 20 MEQ TABLET PO ONE (10:21)
[2017-12-26] MEDS: POLYETHYLENE GLYCOL POWDER 17 GM PACK PO PRN (10:29)
[2017-12-26] MEDS: INSULIN REGULAR 100 UNIT/ML SUBCUT SCH ×4 (10:40→21:20)
[2017-12-26] MEDS ORDERED: LEVOFLOXACIN 500 MG TABLET PO SCH (12:00)
[2017-12-26] MEDS: INSULIN GLARGINE 100 UNIT/ML SUBCUT SCH (21:19)
[2017-12-26] MEDS: ENOXAPARIN 30 MG/0.3 ML SYRINGE SUBCUT SCH (21:20)
[2017-12-27] MEDS: ALBUTEROL/IPRATROPIUM 3 ML NEB RESP TX SCH ×4 (00:11→19:35)
[2017-12-27] MEDS: ONDANSETRON 4 MG/2 ML VIAL IV SCH ×4 (03:13→20:37)
[2017-12-27] MEDS: MORPHINE 4 MG/1 ML VIAL IV SCH ×5 (03:48→20:37)
[2017-12-27] MEDS: ACETAMINOPHEN 325 MG TABLET PO SCH ×5 (03:48→20:37)
[2017-12-27 05:04] LABS: Basophils # 0.1 10*3/uL (0.0-0.2); Basophils % 0.6 % (0.0-0.8); Eosinophils # 0.5 10*3/uL (0.0-0.87); Hematocrit 31.2 VOL% (35.7-47.0); Hemoglobin 9.7 GM/DL (12.0-16.0); Immature Granulocytes % 0.5 %; Immature Granulocytes Absolute 0.08 #; Lymphocytes # 1.2 10*3/uL (1.4-4.0); Lymphocytes % 7.6 % (21.3-54.2); Mean Corpuscular HGB Conc 31.1 GM/DL (32-36); Mean Corpuscular Hemoglobin 27 PG (27-34); Mean Corpuscular Volume 85.5 FL (87-102); Monocytes # 1.3 10*3/uL (0.11-0.8); Neutrophils % 80.3 % (38.7-73.9); Platelet Count 414 T/CUMM (130-400); Red Blood Count 3.65 MC/CUMM (3.8-5.5); White Blood Count 16.2 T/CUMM (4-12)
[2017-12-27 05:56] LABS: Calcium 8.6 MG/DL (8.5-10.1); Osmolality,Calculated 299.3 MOS/KG (273-304); Potassium 3.4 MMOL/L (3.5-5.1)
[2017-12-27] MEDS ORDERED: POTASSIUM CHLORIDE 20 MEQ TABLET PO ONE (08:35)
[2017-12-27] MEDS: CALCITRIOL 0.25 MCG CAPSULE PO SCH (09:26)
[2017-12-27] MEDS: LABETALOL 200 MG TABLET PO SCH ×2 (09:26→20:38)
[2017-12-27] MEDS: PANTOPRAZOLE 40 MG TABLET PO SCH (09:26)
[2017-12-27] MEDS: ISOSORBIDE MONONITRATE 30 MG TABLET PO SCH (09:26)
[2017-12-27] MEDS: ASPIRIN EC 81 MG TABLET PO SCH (09:27)
[2017-12-27] MEDS: POLYETHYLENE GLYCOL POWDER 17 GM PACK PO PRN ×2 (09:30→23:21)
[2017-12-27] MEDS: INSULIN REGULAR 100 UNIT/ML SUBCUT SCH ×4 (12:17→20:38)
[2017-12-27] MEDS: INSULIN GLARGINE 100 UNIT/ML SUBCUT SCH (20:38)
[2017-12-27] MEDS: ENOXAPARIN 30 MG/0.3 ML SYRINGE SUBCUT SCH (20:38)
[2017-12-28] MEDS: ALBUTEROL/IPRATROPIUM 3 ML NEB RESP TX SCH ×4 (00:23→14:00)
[2017-12-28] MEDS: ACETAMINOPHEN 325 MG TABLET PO SCH ×4 (01:58→15:14)
[2017-12-28] MEDS: MORPHINE 4 MG/1 ML VIAL IV SCH ×4 (01:58→15:12)
[2017-12-28] MEDS: ONDANSETRON 4 MG/2 ML VIAL IV SCH ×2 (02:49→11:41)
[2017-12-28 04:29] LABS: Basophils # 0.1 10*3/uL (0.0-0.2); Basophils % 0.6 % (0.0-0.8); Eosinophils # 0.4 10*3/uL (0.0-0.87); Eosinophils % 2.5 % (0.00-10.9); Hematocrit 30.3 VOL% (35.7-47.0); Hemoglobin 9.8 GM/DL (12.0-16.0); Immature Granulocytes % 0.6 %; Lymphocytes # 1.3 10*3/uL (1.4-4.0); Lymphocytes % 7.2 % (21.3-54.2); Mean Corpuscular HGB Conc 32.3 GM/DL (32-36); Mean Corpuscular Hemoglobin 28 PG (27-34); Mean Corpuscular Volume 86.1 FL (87-102); Mean Platelet Volume 10.7 FL (9.6-12.0); Monocytes # 1.2 10*3/uL (0.11-0.8); Monocytes % 6.5 % (1.7-12.7); Neutrophils # 14.7 10*3/uL (1.4-7.4); Neutrophils % 82.6 % (38.7-73.9); Platelet Count 420 T/CUMM (130-400); Red Blood Count 3.52 MC/CUMM (3.8-5.5); White Blood Count 17.8 T/CUMM (4-12)
[2017-12-28 04:46] LABS: Calcium 8.3 MG/DL (8.5-10.1); Osmolality,Calculated 296.4 MOS/KG (273-304); Potassium 3.6 MMOL/L (3.5-5.1)
[2017-12-28] MEDS: INSULIN REGULAR 100 UNIT/ML SUBCUT SCH ×2 (08:40→15:12)
[2017-12-28] MEDS: PANTOPRAZOLE 40 MG TABLET PO SCH (08:41)
[2017-12-28] MEDS: CALCITRIOL 0.25 MCG CAPSULE PO SCH (08:41)
[2017-12-28] MEDS: ISOSORBIDE MONONITRATE 30 MG TABLET PO SCH (08:41)
[2017-12-28] MEDS: LABETALOL 200 MG TABLET PO SCH (08:42)
[2017-12-28] MEDS: ASPIRIN EC 81 MG TABLET PO SCH (08:42)
[2017-12-28 12:39] VITALS: BP 149/80
== END 2017-12-28 15:23 | disposition home or self-care (01) | DRG 291 ==
LOC: N.ED 15:28 → N.EDINP 18:58 → SUATTDRO 18:58 → N.CC 19:54 → N.5E 12-24 16:41
PROVIDERS: ADMIT Internal Medicine; ATTEND Family Medicine

== ENCOUNTER 2018-07-13 02:49 | Inpatient (IN) ==
[2018-07-13] MEDS ORDERED: ONDANSETRON 4 MG/2 ML VIAL IV ONE (03:35)
[2018-07-13] MEDS ORDERED: hydrALAZINE 20 MG/1 ML VIAL IV STA ×2 (03:53→05:58)
[2018-07-13 03:56] LABS: Basophils # 0.1 10*3/uL (0.0-0.2); Basophils % 0.5 % (0.0-0.8); Eosinophils # 0.2 10*3/uL (0.0-0.87); Eosinophils % 1.1 % (0.00-10.9); Hematocrit 28.8 VOL% (35.7-47.0); Hemoglobin 9.1 GM/DL (12.0-16.0); Immature Granulocytes % 0.5 %; Immature Granulocytes Absolute 0.06 #; Lymphocytes # 0.8 10*3/uL (1.4-4.0); Lymphocytes % 6.2 % (21.3-54.2); Mean Corpuscular HGB Conc 31.6 GM/DL (32-36); Mean Corpuscular Volume 86.2 FL (87-102); Monocytes % 8.5 % (1.7-12.7); Neutrophils % 83.2 % (38.7-73.9); Platelet Count 288 T/CUMM (130-400); Red Blood Count 3.34 MC/CUMM (3.8-5.5); Red Cell Distribution Width 14.1 % (9.3-17.3); White Blood Count 13.1 T/CUMM (4-12)
[2018-07-13 04:21] LABS: Bilirubin,Total 0.4 MG/DL (0.2-1.0); Calcium 8.4 MG/DL (8.5-10.1); Osmolality,Calculated 315.4 MOS/KG (273-304); Total Protein 7.4 G/DL (6.4-8.3)
[2018-07-13] MEDS ORDERED: MORPHINE 4 MG/1 ML VIAL IV PRN (05:18)
[2018-07-13] MEDS ORDERED: NICOTINE 21 MG/24 HR PATCH TRANSDERM PRN (05:18)
[2018-07-13] MEDS ORDERED: ONDANSETRON 4 MG/2 ML VIAL IV PRN (05:18)
[2018-07-13] MEDS ORDERED: hydrALAZINE 20 MG/1 ML VIAL IV PRN (06:20)
[2018-07-13] MEDS: metroNIDAZOLE INJ 500 MG in PREMIX 1 EACH IV SCH ×2 (08:11→20:20)
[2018-07-13] MEDS: cefTRIAXone 1,000 MG in SYRINGE 1 EACH IV SCH ×2 (08:11→20:20)
[2018-07-13] MEDS ORDERED: GLUCAGON 1 MG VIAL IM PRN (12:49)
[2018-07-13] MEDS ORDERED: DEXTROSE 50% 25 GM/50 ML VIAL IV PRN (12:49)
[2018-07-13] MEDS: INSULIN REGULAR 100 UNIT/ML SUBCUT SCH ×2 (15:53→20:31)
[2018-07-13] MEDS: ISOSORBIDE MONONITRATE 60 MG TABLET PO SCH (16:34)
[2018-07-13] MEDS: LABETALOL 200 MG TABLET PO SCH ×2 (16:34→20:21)
[2018-07-14 06:10] LABS: Basophils % 0.4 % (0.0-0.8); Eosinophils # 0.1 10*3/uL (0.0-0.87); Eosinophils % 0.5 % (0.00-10.9); Hematocrit 24.5 VOL% (35.7-47.0); Hemoglobin 7.7 GM/DL (12.0-16.0); Immature Granulocytes % 0.5 %; Immature Granulocytes Absolute 0.05 #; Lymphocytes # 0.6 10*3/uL (1.4-4.0); Lymphocytes % 6.3 % (21.3-54.2); Mean Corpuscular HGB Conc 31.4 GM/DL (32-36); Mean Corpuscular Volume 86.9 FL (87-102); Mean Platelet Volume 11.7 FL (9.6-12.0); Monocytes % 9.5 % (1.7-12.7); Neutrophils % 82.8 % (38.7-73.9); Platelet Count 251 T/CUMM (130-400); Red Blood Count 2.82 MC/CUMM (3.8-5.5); Red Cell Distribution Width 14.3 % (9.3-17.3); White Blood Count 10.2 T/CUMM (4-12)
[2018-07-14 06:35] LABS: Albumin 2.3 G/DL (3.4-5.0); Bilirubin,Total 1.2 MG/DL (0.2-1.0); Calcium 8.3 MG/DL (8.5-10.1); Osmolality,Calculated 317.3 MOS/KG (273-304); Total Protein 5.8 G/DL (6.4-8.3)
[2018-07-14 06:36] LABS: Calcium 8.3 MG/DL (8.5-10.1); Osmolality,Calculated 313.4 MOS/KG (273-304)
[2018-07-14] MEDS: ISOSORBIDE MONONITRATE 60 MG TABLET PO SCH (08:02)
[2018-07-14] MEDS: metroNIDAZOLE INJ 500 MG in PREMIX 1 EACH IV SCH (08:02)
[2018-07-14] MEDS: cefTRIAXone 1,000 MG in SYRINGE 1 EACH IV SCH (08:02)
[2018-07-14] MEDS: LABETALOL 200 MG TABLET PO SCH (08:03)
[2018-07-14] MEDS: INSULIN REGULAR 100 UNIT/ML SUBCUT SCH ×2 (08:03→11:57)
[2018-07-14 12:31] VITALS: BP 119/52
== END 2018-07-14 15:04 | disposition home or self-care (01) | DRG 291 ==
LOC: N.ED 02:49 → N.EDINP 02:49 → SUATTDRO 05:18 → N.5E 06:20 → UNDODISOB 07-14 15:04
PROVIDERS: ADMIT Family Medicine; ATTEND Family Medicine

== ENCOUNTER 2018-11-16 16:59 | Inpatient (IN) ==
[2018-11-16 18:48] LABS: Basophils # 0.1 10*3/uL (0.0-0.2); Basophils % 0.5 % (0.0-0.8); Eosinophils # 0.2 10*3/uL (0.0-0.87); Eosinophils % 1.4 % (0.00-10.9); Immature Granulocytes % 0.7 %; Immature Granulocytes Absolute 0.12 #; Lymphocytes # 0.8 10*3/uL (1.4-4.0); Lymphocytes % 4.8 % (21.3-54.2); Mean Corpuscular HGB Conc 32.1 GM/DL (32-36); Mean Corpuscular Volume 80.2 FL (87-102); Mean Platelet Volume 10.1 FL (9.6-12.0); Monocytes % 8.1 % (1.7-12.7); Neutrophils % 84.5 % (38.7-73.9); Platelet Count 362 T/CUMM (130-400); Red Blood Count 3.49 MC/CUMM (3.8-5.5); Red Cell Distribution Width 14.6 % (9.3-17.3); White Blood Count 17.2 T/CUMM (4-12)
[2018-11-16 19:10] LABS: Albumin 2.2 G/DL (3.4-5.0); Bilirubin,Total 0.4 MG/DL (0.2-1.0); Calcium 7.8 MG/DL (8.5-10.1); Osmolality,Calculated 313.4 MOS/KG (273-304); Total Protein 6.9 G/DL (6.4-8.3)
[2018-11-16 19:16] LABS: Eosinophils 2 % (0-10); Lymphocytes 6 % (20-55); Segmented Neutrophils 85 % (50-85); Total Cells Counted 100
[2018-11-16 19:17] LABS: Hypochromasia 1+
[2018-11-16 19:18] LABS: Burr Cells Few; Platelet Estimate Adequate; Polychromasia Few; Schistocytes Few
[2018-11-16] MEDS ORDERED: methylPREDNISolone SOD SUC 125 MG/2 ML VIAL IV STA (19:38)
[2018-11-16] MEDS ORDERED: ONDANSETRON 4 MG/2 ML VIAL IV ONE (19:38)
[2018-11-16] MEDS ORDERED: MORPHINE 4 MG/1 ML VIAL IV STA (19:38)
[2018-11-16] MEDS ORDERED: hydrALAZINE 20 MG/1 ML VIAL IV STA (19:38)
[2018-11-16] MEDS ORDERED: VANCOMYCIN INJ 1,000 MG in SODIUM CHLORIDE 0.9% 250 ML IV STA (19:44)
[2018-11-16] MEDS ORDERED: cloNIDine 0.1 MG TABLET PO PRN (20:26)
[2018-11-16] MEDS ORDERED: GLUCAGON 1 MG VIAL IM PRN (20:34)
[2018-11-16] MEDS ORDERED: DEXTROSE 50% 25 GM/50 ML VIAL IV PRN (20:34)
[2018-11-16] MEDS ORDERED: COLCHICINE 0.6 MG CAPSULE PO SCH (21:00)
[2018-11-16] MEDS: INSULIN LISPRO 100 UNIT/ML SUBCUT SCH (21:21)
[2018-11-16] MEDS ORDERED: ACETAMINOPHEN 325 MG TABLET PO PRN (22:14)
[2018-11-16] MEDS: ENOXAPARIN 30 MG/0.3 ML SYRINGE SUBCUT SCH (23:53)
[2018-11-16] MEDS: FUROSEMIDE 80 MG TABLET PO SCH (23:53)
[2018-11-16] MEDS: COLCHICINE 0.6 MG CAPSULE PO SCH (23:54)
[2018-11-16] MEDS: LABETALOL 200 MG TABLET PO SCH (23:54)
[2018-11-16] MEDS: cefTRIAXone 2,000 MG in SYRINGE 1 EACH IV SCH (23:54)
[2018-11-17 05:08] LABS: Basophils % 0.2 % (0.0-0.8); Hematocrit 27.8 VOL% (35.7-47.0); Hemoglobin 8.9 GM/DL (12.0-16.0); Immature Granulocytes % 0.7 %; Immature Granulocytes Absolute 0.11 #; Lymphocytes # 0.4 10*3/uL (1.4-4.0); Lymphocytes % 2.4 % (21.3-54.2); Mean Corpuscular Volume 80.3 FL (87-102); Mean Platelet Volume 10.8 FL (9.6-12.0); Monocytes % 0.3 % (1.7-12.7); NRBC # 0.02 10*3/uL; Neutrophils % 96.4 % (38.7-73.9); Platelet Count 373 T/CUMM (130-400); Red Blood Count 3.46 MC/CUMM (3.8-5.5); Red Cell Distribution Width 14.6 % (9.3-17.3); White Blood Count 16.6 T/CUMM (4-12)
[2018-11-17 05:10] LABS: PT Patient Result 10.9 SECS (9.6-12.2)
[2018-11-17 05:22] LABS: Calcium 7.7 MG/DL (8.5-10.1); Osmolality,Calculated 313.7 MOS/KG (273-304)
[2018-11-17 05:59] LABS: Lymphocytes 3 % (20-55); Platelet Estimate Normal; Segmented Neutrophils 97 % (50-85); Total Cells Counted 100
[2018-11-17] MEDS: FUROSEMIDE 80 MG TABLET PO SCH ×2 (09:00→22:35)
[2018-11-17] MEDS: ASPIRIN EC 81 MG TABLET PO SCH (09:00)
[2018-11-17] MEDS: INSULIN LISPRO 100 UNIT/ML SUBCUT SCH ×4 (09:00→22:32)
[2018-11-17] MEDS: LABETALOL 200 MG TABLET PO SCH ×2 (09:00→22:34)
[2018-11-17] MEDS: PANTOPRAZOLE 40 MG TABLET PO SCH (09:01)
[2018-11-17] MEDS: COLCHICINE 0.6 MG CAPSULE PO SCH (22:34)
[2018-11-17] MEDS: FLUCONAZOLE 150 MG TABLET PO SCH (22:34)
[2018-11-17] MEDS: cefTRIAXone 2,000 MG in SYRINGE 1 EACH IV SCH (22:35)
[2018-11-17] MEDS: ENOXAPARIN 30 MG/0.3 ML SYRINGE SUBCUT SCH (22:35)
[2018-11-18 08:04] LABS: Basophils % 0.2 % (0.0-0.8); Eosinophils # 0.1 10*3/uL (0.0-0.87); Eosinophils % 0.3 % (0.00-10.9); Hematocrit 26.1 VOL% (35.7-47.0); Hemoglobin 8.4 GM/DL (12.0-16.0); Immature Granulocytes Absolute 0.19 #; Lymphocytes # 0.8 10*3/uL (1.4-4.0); Lymphocytes % 4.1 % (21.3-54.2); Mean Corpuscular HGB Conc 32.2 GM/DL (32-36); Mean Corpuscular Volume 80.8 FL (87-102); Mean Platelet Volume 10.4 FL (9.6-12.0); Monocytes % 7.4 % (1.7-12.7); NRBC # 0.03 10*3/uL; Platelet Count 347 T/CUMM (130-400); Red Blood Count 3.23 MC/CUMM (3.8-5.5); Red Cell Distribution Width 14.8 % (9.3-17.3); White Blood Count 19.8 T/CUMM (4-12)
[2018-11-18 08:21] LABS: Calcium 7.8 MG/DL (8.5-10.1); Osmolality,Calculated 313.7 MOS/KG (273-304)
[2018-11-18] MEDS: LABETALOL 200 MG TABLET PO SCH ×2 (08:28→21:29)
[2018-11-18] MEDS: FLUCONAZOLE 150 MG TABLET PO SCH (08:28)
[2018-11-18] MEDS: ASPIRIN EC 81 MG TABLET PO SCH (08:28)
[2018-11-18 08:29] LABS: Lymphocytes 4 % (20-55); Platelet Estimate Adequate; Segmented Neutrophils 92 % (50-85); Total Cells Counted 100
[2018-11-18] MEDS: PANTOPRAZOLE 40 MG TABLET PO SCH (08:29)
[2018-11-18] MEDS: FUROSEMIDE 80 MG TABLET PO SCH ×2 (08:29→21:29)
[2018-11-18 08:30] LABS: Hypochromasia 1+
[2018-11-18] MEDS: INSULIN LISPRO 100 UNIT/ML SUBCUT SCH ×4 (08:30→21:29)
[2018-11-18] MEDS: COLCHICINE 0.6 MG CAPSULE PO SCH (21:29)
[2018-11-18] MEDS: ONDANSETRON 4 MG/2 ML VIAL IV PRN (21:29)
[2018-11-18] MEDS: HEPARIN 5,000 UNIT/1 ML VIAL SUBCUT SCH (21:36)
[2018-11-19] MEDS ORDERED: POTASSIUM CHLORIDE 20 MEQ TABLET PO ONE (00:14)
[2018-11-19] MEDS: cefTRIAXone 2,000 MG in SYRINGE 1 EACH IV SCH ×2 (00:20→22:25)
[2018-11-19 05:07] LABS: Basophils # 0.1 10*3/uL (0.0-0.2); Basophils % 0.3 % (0.0-0.8); Eosinophils # 0.2 10*3/uL (0.0-0.87); Eosinophils % 0.9 % (0.00-10.9); Hematocrit 27.6 VOL% (35.7-47.0); Hemoglobin 8.9 GM/DL (12.0-16.0); Immature Granulocytes Absolute 0.18 #; Lymphocytes # 0.7 10*3/uL (1.4-4.0); Mean Corpuscular HGB Conc 32.2 GM/DL (32-36); Mean Corpuscular Volume 80.2 FL (87-102); Mean Platelet Volume 10.5 FL (9.6-12.0); Monocytes % 5.9 % (1.7-12.7); NRBC # 0.03 10*3/uL; Neutrophils % 87.9 % (38.7-73.9); Platelet Count 371 T/CUMM (130-400); Red Blood Count 3.44 MC/CUMM (3.8-5.5); Red Cell Distribution Width 15.2 % (9.3-17.3); White Blood Count 18.6 T/CUMM (4-12)
[2018-11-19 05:27] LABS: Burr Cells Slight; Hypochromasia 1+; Lymphocytes 6 % (20-55); Nucleated Red Blood Cells 2 (0-5); Ovalocytes Slight; Platelet Estimate Adequate; Segmented Neutrophils 89 % (50-85); Total Cells Counted 100
[2018-11-19 05:42] LABS: Calcium 7.4 MG/DL (8.5-10.1); Osmolality,Calculated 311.7 MOS/KG (273-304)
[2018-11-19] MEDS: INSULIN LISPRO 100 UNIT/ML SUBCUT SCH ×4 (08:38→20:43)
[2018-11-19] MEDS: LABETALOL 200 MG TABLET PO SCH ×2 (08:39→20:42)
[2018-11-19] MEDS: FUROSEMIDE 80 MG TABLET PO SCH ×2 (08:39→20:42)
[2018-11-19] MEDS: PANTOPRAZOLE 40 MG TABLET PO SCH (08:39)
[2018-11-19] MEDS: ASPIRIN EC 81 MG TABLET PO SCH (08:39)
[2018-11-19] MEDS: HEPARIN 5,000 UNIT/1 ML VIAL SUBCUT SCH ×2 (08:40→20:43)
[2018-11-19] MEDS: COLCHICINE 0.6 MG CAPSULE PO SCH (20:42)
[2018-11-20 05:30] LABS: Basophils # 0.1 10*3/uL (0.0-0.2); Basophils % 0.3 % (0.0-0.8); Eosinophils # 0.2 10*3/uL (0.0-0.87); Eosinophils % 1.2 % (0.00-10.9); Hematocrit 26.8 VOL% (35.7-47.0); Hemoglobin 8.6 GM/DL (12.0-16.0); Immature Granulocytes % 0.6 %; Immature Granulocytes Absolute 0.12 #; Lymphocytes % 5.2 % (21.3-54.2); Mean Corpuscular HGB Conc 32.1 GM/DL (32-36); Mean Corpuscular Volume 79.1 FL (87-102); Mean Platelet Volume 10.8 FL (9.6-12.0); NRBC # 0.02 10*3/uL; Neutrophils % 83.7 % (38.7-73.9); Platelet Count 354 T/CUMM (130-400); Red Blood Count 3.39 MC/CUMM (3.8-5.5); Red Cell Distribution Width 15.1 % (9.3-17.3); White Blood Count 18.7 T/CUMM (4-12)
[2018-11-20 06:02] LABS: Calcium 7.2 MG/DL (8.5-10.1); Osmolality,Calculated 309.3 MOS/KG (273-304)
[2018-11-20] MEDS ORDERED: POTASSIUM CHLORIDE RIDER 10 MEQ in PREMIX 1 EACH IV SCH (08:00)
[2018-11-20] MEDS: ASPIRIN EC 81 MG TABLET PO SCH (08:56)
[2018-11-20] MEDS: FUROSEMIDE 80 MG TABLET PO SCH ×2 (08:56→22:37)
[2018-11-20] MEDS: POTASSIUM CHLORIDE 20 MEQ TABLET PO PRN ×3 (08:56→10:58)
[2018-11-20] MEDS: LABETALOL 200 MG TABLET PO SCH ×2 (08:56→22:36)
[2018-11-20] MEDS: PANTOPRAZOLE 40 MG TABLET PO SCH (08:57)
[2018-11-20] MEDS: HEPARIN 5,000 UNIT/1 ML VIAL SUBCUT SCH ×2 (08:58→22:37)
[2018-11-20] MEDS: INSULIN LISPRO 100 UNIT/ML SUBCUT SCH ×4 (09:00→22:38)
[2018-11-20] MEDS: predniSONE 20 MG TABLET PO SCH (17:05)
[2018-11-20] MEDS: COLCHICINE 0.6 MG CAPSULE PO SCH (22:37)
[2018-11-20] MEDS ORDERED: POTASSIUM CHLORIDE 20 MEQ TABLET PO ONE (23:01)
[2018-11-20] MEDS: ONDANSETRON 4 MG/2 ML VIAL IV PRN (23:20)
[2018-11-21 05:30] LABS: Basophils % 0.1 % (0.0-0.8); Hemoglobin 9.2 GM/DL (12.0-16.0); Immature Granulocytes % 0.9 %; Immature Granulocytes Absolute 0.23 #; Lymphocytes # 0.4 10*3/uL (1.4-4.0); Lymphocytes % 1.5 % (21.3-54.2); Mean Corpuscular HGB Conc 31.7 GM/DL (32-36); Mean Corpuscular Volume 79.5 FL (87-102); Mean Platelet Volume 11.1 FL (9.6-12.0); Monocytes % 2.2 % (1.7-12.7); NRBC # 0.02 10*3/uL; Neutrophils % 95.3 % (38.7-73.9); Platelet Count 376 T/CUMM (130-400); Red Blood Count 3.65 MC/CUMM (3.8-5.5); Red Cell Distribution Width 14.9 % (9.3-17.3); White Blood Count 25.4 T/CUMM (4-12)
[2018-11-21 05:42] LABS: Calcium 7.4 MG/DL (8.5-10.1); Osmolality,Calculated 306.5 MOS/KG (273-304)
[2018-11-21 05:50] LABS: Band Neutrophils 3 % (0-10); Lymphocytes 2 % (20-55); Platelet Estimate Normal; Segmented Neutrophils 93 % (50-85); Total Cells Counted 100
[2018-11-21] MEDS ORDERED: fentaNYL 100 MCG/2 ML VIAL IV ONE (07:40)
[2018-11-21] MEDS ORDERED: DIAZEPAM 5 MG TABLET PO ONE (07:40)
[2018-11-21] MEDS ORDERED: MIDAZOLAM 2 MG/2 ML VIAL IV ONE (07:40)
[2018-11-21] MEDS ORDERED: ceFAZolin 1,000 MG in SYRINGE 1 EACH IV ONE (09:00)
[2018-11-21] MEDS: INSULIN LISPRO 100 UNIT/ML SUBCUT SCH ×4 (09:39→21:37)
[2018-11-21] MEDS: LABETALOL 200 MG TABLET PO SCH ×2 (09:40→21:36)
[2018-11-21] MEDS: predniSONE 20 MG TABLET PO SCH (09:41)
[2018-11-21] MEDS: ASPIRIN EC 81 MG TABLET PO SCH (09:41)
[2018-11-21] MEDS: PANTOPRAZOLE 40 MG TABLET PO SCH (09:41)
[2018-11-21] MEDS: HEPARIN 5,000 UNIT/1 ML VIAL SUBCUT SCH ×2 (11:28→21:37)
[2018-11-21] MEDS: FUROSEMIDE 80 MG TABLET PO SCH (11:44)
[2018-11-21] MEDS ORDERED: HEPARIN/NACL 0.9% 2 UNITS/ML 1,000 ML IV ONE ×2 (12:41→13:12)
[2018-11-21] MEDS ORDERED: fentaNYL 100 MCG/2 ML VIAL ONE (13:24)
[2018-11-21] MEDS ORDERED: MIDAZOLAM 2 MG/2 ML VIAL ONE (13:24)
[2018-11-21] MEDS ORDERED: HEPARIN 5,000 UNIT/1 ML VIAL ONE (13:24)
[2018-11-21] MEDS ORDERED: HEPARIN 5,000 UNIT/1 ML VIAL IV PRN (14:51)
[2018-11-21] MEDS: COLCHICINE 0.6 MG CAPSULE PO SCH (21:42)
[2018-11-22 06:28] LABS: Basophils % 0.1 % (0.0-0.8); Hematocrit 27.3 VOL% (35.7-47.0); Hemoglobin 8.7 GM/DL (12.0-16.0); Immature Granulocytes % 0.7 %; Immature Granulocytes Absolute 0.19 #; Lymphocytes # 0.6 10*3/uL (1.4-4.0); Lymphocytes % 2.2 % (21.3-54.2); Mean Corpuscular HGB Conc 31.9 GM/DL (32-36); Mean Corpuscular Volume 79.6 FL (87-102); Mean Platelet Volume 11.3 FL (9.6-12.0); Monocytes % 6.9 % (1.7-12.7); NRBC # 0.03 10*3/uL; Neutrophils % 90.1 % (38.7-73.9); Platelet Count 345 T/CUMM (130-400); Red Blood Count 3.43 MC/CUMM (3.8-5.5); Red Cell Distribution Width 15.2 % (9.3-17.3); White Blood Count 26.6 T/CUMM (4-12)
[2018-11-22 06:41] LABS: Calcium 7.5 MG/DL (8.5-10.1); Osmolality,Calculated 304.5 MOS/KG (273-304)
[2018-11-22 06:52] LABS: Lymphocytes 1 % (20-55); Platelet Estimate Adequate; Segmented Neutrophils 95 % (50-85); Total Cells Counted 100
[2018-11-22 06:53] LABS: Burr Cells Slight; Hypochromasia 1+; Ovalocytes Slight; Target Cells Few
[2018-11-22 08:04] LABS: Calcium 7.4 MG/DL (8.5-10.1); Osmolality,Calculated 302.8 MOS/KG (273-304)
[2018-11-22] MEDS: HEPARIN 5,000 UNIT/1 ML VIAL SUBCUT SCH (09:26)
[2018-11-22] MEDS: INSULIN LISPRO 100 UNIT/ML SUBCUT SCH ×3 (09:27→16:21)
[2018-11-22] MEDS: LABETALOL 200 MG TABLET PO SCH (09:27)
[2018-11-22] MEDS: PANTOPRAZOLE 40 MG TABLET PO SCH (09:27)
[2018-11-22] MEDS: ASPIRIN EC 81 MG TABLET PO SCH (09:27)
[2018-11-22] MEDS ORDERED: CLOPIDOGREL 75 MG TABLET PO SCH (16:00)
[2018-11-22 16:24] VITALS: BP 125/60
== END 2018-11-22 17:06 | disposition home or self-care (01) | DRG 252 ==
LOC: N.ED 16:59 → N.EDINP 20:22 → N.5E 20:44
PROVIDERS: ADMIT Internal Medicine; ATTEND Internal Medicine

== ENCOUNTER 2018-12-08 18:21 | Inpatient (IN) ==
[2018-12-08] MEDS ORDERED: LABETALOL 20 MG/4 ML SYRINGE IV STA (19:05)
[2018-12-08 19:10] LABS: Basophils # 0.1 10*3/uL (0.0-0.2); Basophils % 0.4 % (0.0-0.8); Eosinophils # 0.2 10*3/uL (0.0-0.87); Hematocrit 26.9 VOL% (35.7-47.0); Hemoglobin 8.6 GM/DL (12.0-16.0); Immature Granulocytes % 1.1 %; Immature Granulocytes Absolute 0.22 #; Lymphocytes # 0.7 10*3/uL (1.4-4.0); Lymphocytes % 3.7 % (21.3-54.2); Mean Corpuscular Volume 79.1 FL (87-102); Mean Platelet Volume 10.7 FL (9.6-12.0); Monocytes % 6.1 % (1.7-12.7); NRBC # 0.16 10*3/uL; Neutrophils % 87.7 % (38.7-73.9); Platelet Count 374 T/CUMM (130-400); Red Cell Distribution Width 17.2 % (9.3-17.3); White Blood Count 19.7 T/CUMM (4-12)
[2018-12-08 19:27] LABS: Alanine Aminotransferase < 9 U/L (13-56); Albumin 1.9 G/DL (3.4-5.0); Alkaline Phosphatase 122 U/L (45-117); Aspartate Amino Transferase 10 U/L (0-37); Blood Urea Nitrogen 135 MG/DL (7-18); Calcium 8.2 MG/DL (8.5-10.1); Estimated Glom Filtration Rate 3 ML/MIN; Glucose 86 MG/DL (74-106); Osmolality,Calculated 319.5 MOS/KG (273-304); Total Protein 6.7 G/DL (6.4-8.3)
[2018-12-08 19:30] LABS: Lymphocytes 6 % (20-55); Segmented Neutrophils 88 % (50-85); Total Cells Counted 100
[2018-12-08 19:31] LABS: Hypochromasia Slight; Microcytosis Slight; Platelet Estimate Adequate; Polychromasia Slight; Tear Drop Cells Few
[2018-12-08] MEDS ORDERED: ACETAMINOPHEN 325 MG TABLET PO PRN (20:15)
[2018-12-08] MEDS ORDERED: ONDANSETRON 4 MG/2 ML VIAL IV PRN (20:15)
[2018-12-08] MEDS ORDERED: DEXTROSE 50% 25 GM/50 ML VIAL IV PRN (20:21)
[2018-12-08] MEDS ORDERED: GLUCAGON 1 MG VIAL IM PRN (20:21)
[2018-12-08] MEDS ORDERED: VANCOMYCIN INJ 1,500 MG in SODIUM CHLORIDE 0.9% 500 ML IV ONE (21:00)
[2018-12-08] MEDS ORDERED: ENOXAPARIN 30 MG/0.3 ML SYRINGE SUBCUT SCH (21:00)
[2018-12-08] MEDS: FUROSEMIDE 80 MG TABLET PO SCH (21:20)
[2018-12-08] MEDS: LABETALOL 200 MG TABLET PO SCH (22:02)
[2018-12-08] MEDS: MORPHINE 4 MG/1 ML VIAL IV PRN (22:14)
[2018-12-08] MEDS: INSULIN REGULAR 100 UNIT/ML SUBCUT SCH (23:29)
[2018-12-09] MEDS: PIPERACILLIN/TAZOBACTAM 3,375 MG in SODIUM CHLORIDE 0.9% 100 ML IV SCH ×2 (01:00→08:32)
[2018-12-09] MEDS: MORPHINE 4 MG/1 ML VIAL IV PRN ×2 (03:09→06:40)
[2018-12-09 05:29] LABS: Basophils # 0.1 10*3/uL (0.0-0.2); Basophils % 0.4 % (0.0-0.8); Eosinophils # 0.2 10*3/uL (0.0-0.87); Eosinophils % 0.9 % (0.00-10.9); Hematocrit 27.9 VOL% (35.7-47.0); Hemoglobin 8.7 GM/DL (12.0-16.0); Immature Granulocytes Absolute 0.18 #; Lymphocytes # 0.9 10*3/uL (1.4-4.0); Mean Corpuscular HGB Conc 31.2 GM/DL (32-36); Mean Corpuscular Volume 79.7 FL (87-102); Mean Platelet Volume 10.7 FL (9.6-12.0); Monocytes % 6.3 % (1.7-12.7); NRBC # 0.16 10*3/uL; Neutrophils % 86.4 % (38.7-73.9); Platelet Count 330 T/CUMM (130-400); Red Cell Distribution Width 17.4 % (9.3-17.3)
[2018-12-09] MEDS: INSULIN REGULAR 100 UNIT/ML SUBCUT SCH ×2 (05:52→14:10)
[2018-12-09 05:56] LABS: Alanine Aminotransferase < 6 U/L (13-56); Albumin 1.8 G/DL (3.4-5.0); Alkaline Phosphatase 120 U/L (45-117); Aspartate Amino Transferase 9 U/L (0-37); Blood Urea Nitrogen 133 MG/DL (7-18); Calcium 8.5 MG/DL (8.5-10.1); Glucose 84 MG/DL (74-106); HDL Cholesterol 54 MG/DL (40-60); Osmolality,Calculated 318.5 MOS/KG (273-304); Risk Ratio 2.19; Total Protein 6.5 G/DL (6.4-8.3); Triglycerides 96 MG/DL (2-150); VLDL CHOLESTEROL 19.2 MG/DL
[2018-12-09 06:06] LABS: Estimated Glom Filtration Rate 3 ML/MIN
[2018-12-09 07:30] VITALS: BP 150/53
[2018-12-09] MEDS ORDERED: VANCOMYCIN INJ 1,500 MG in SODIUM CHLORIDE 0.9% 500 ML IV PRN (08:34)
[2018-12-09] MEDS ORDERED: allopurinoL 100 MG TABLET PO SCH (09:00)
[2018-12-09] MEDS ORDERED: ISOSORBIDE MONONITRATE 60 MG TABLET PO SCH (09:00)
[2018-12-09] MEDS ORDERED: PANTOPRAZOLE 40 MG TABLET PO SCH (09:00)
[2018-12-09] MEDS: LABETALOL 200 MG TABLET PO SCH (09:58)
[2018-12-09] MEDS ORDERED: BUPIVACAINE 0.5% 50 ML VIAL ONE (10:07)
[2018-12-09] MEDS ORDERED: LIDOCAINE 1% 20 ML VIAL ONE (10:07)
[2018-12-09] MEDS ORDERED: DEXTROSE 50% 25 GM/50 ML VIAL IV ONE (10:22)
[2018-12-09] MEDS ORDERED: SODIUM CHLORIDE 0.9% 250 ML IV SCH (10:30)
[2018-12-09] MEDS: FUROSEMIDE 80 MG TABLET PO SCH (10:45)
[2018-12-09] MEDS ORDERED: SODIUM BICARBONATE 50 MEQ/50 ML VIAL IV ONE (11:17)
[2018-12-09 11:39] LABS: Basophils # 0.1 10*3/uL (0.0-0.2); Basophils % 0.4 % (0.0-0.8); Eosinophils # 0.2 10*3/uL (0.0-0.87); Hematocrit 24.8 VOL% (35.7-47.0); Hemoglobin 7.9 GM/DL (12.0-16.0); Immature Granulocytes % 4.3 %; Immature Granulocytes Absolute 0.81 #; Lymphocytes # 2.1 10*3/uL (1.4-4.0); Lymphocytes % 11.1 % (21.3-54.2); Mean Corpuscular HGB Conc 31.9 GM/DL (32-36); Mean Platelet Volume 11.2 FL (9.6-12.0); Monocytes % 5.9 % (1.7-12.7); Neutrophils % 77.3 % (38.7-73.9); Platelet Count 280 T/CUMM (130-400); Red Cell Distribution Width 17.3 % (9.3-17.3); White Blood Count 18.8 T/CUMM (4-12)
[2018-12-09 11:51] LABS: INR 1.2; PT Patient Result 13.2 SECS (9.6-12.2); Partial Thromboplastin Time 28.2 SECS (20.8-36.0)
[2018-12-09 12:00] LABS: Lymphocytes 13 % (20-55); Nucleated Red Blood Cells 1 (0-5); Segmented Neutrophils 78 % (50-85); Total Cells Counted 100
[2018-12-09] MEDS ORDERED: PIPERACILLIN/TAZOBACTAM 3,375 MG in SODIUM CHLORIDE 0.9% 100 ML IV SCH (12:00)
[2018-12-09 12:01] LABS: Hypochromasia 1+; Microcytosis Slight; Platelet Estimate Adequate
[2018-12-09 12:12] LABS: Alanine Aminotransferase < 9 U/L (13-56); Albumin 1.4 G/DL (3.4-5.0); Alkaline Phosphatase 93 U/L (45-117); Aspartate Amino Transferase 18 U/L (0-37); Blood Urea Nitrogen 129 MG/DL (7-18); Calcium 8.4 MG/DL (8.5-10.1); Estimated Glom Filtration Rate 3 ML/MIN; Glucose 190 MG/DL (74-106); Total Protein 4.3 G/DL (6.4-8.3)
[2018-12-09] MEDS ORDERED: EPINEPHrine 1 MG/10 ML SYRINGE ONE ×2 (12:27→17:53)
[2018-12-09] MEDS ORDERED: MIDAZOLAM 2 MG/2 ML VIAL ONE (13:45)
[2018-12-09] MEDS ORDERED: fentaNYL 100 MCG/2 ML VIAL ONE (13:45)
[2018-12-09] MEDS ORDERED: SODIUM BICARBONATE 50 MEQ/50 ML SYRINGE IV ONE (17:53)
[2018-12-10] MEDS ORDERED: LEVOTHYROXINE 100 MCG VIAL IV SCH (07:00)
== END 2018-12-09 19:00 | disposition expired | DRG 255 ==
LOC: EDUNIT# → EDBD → N.ED 18:21 → N.EDINP 20:13 → N.3E 20:54 → N.ICU 12-09 12:18 → N.CVR 12-09 16:10
PROVIDERS: ADMIT Internal Medicine; ATTEND Internal Medicine